=== PATIENT | male | born 1950 | race Caucasian/White ===

== ENCOUNTER 2019-02-26 09:07 | Emergency (ER) | payer MEDICARE, OTHER ==
--- NOTE | 2019-02-26 09:27 | ER Document Report ---
ED Medical Screen (RME) - General Chief Complaint: Eye Pain Stated Complaint: FACIAL SWELLING, PAIN Time Seen by Provider: 02/26/19 09:25 Primary Care Provider: DAYAN REILLY MD [Primary Care Provider] - Follow up as needed Mode of Arrival: Ambulatory Information source: Patient, Relative Notes: Patient presents today with complaints of shingles to his face. Daughter reports it has now affected both eyes. He was evaluated and treated at urgent care on Tuesday. Worsening symptoms today. I have greeted and performed a rapid initial assessment of this patient. A comprehensive ED assessment and evaluation of the patient, analysis of test results and completion of the medical decision making process will be conducted by additional ED providers. Dictation of this chart was performed using voice recognition software; therefore, there may be some unintended grammatical errors. TRAVEL OUTSIDE OF THE [place] IN LAST 30 DAYS: No - Related Data Allergies/Adverse Reactions: No Known Allergies Allergy (Verified 02/26/19 09:17) Doctor's Discharge - Discharge Referrals: DAYAN REILLY MD [Primary Care Provider] - Follow up as needed
--- NOTE | 2019-02-26 09:59 | ER Document Report ---
ED General - General Chief Complaint: Eye Pain Stated Complaint: FACIAL SWELLING, PAIN Time Seen by Provider: 02/26/19 09:25 Primary Care Provider: REMINGTON BALTAZAR DO [ACTIVE STAFF] - 02/27/19 DAYAN REILLY MD [Primary Care Provider] - Follow up as needed Mode of Arrival: Ambulatory Notes: Patient is a 68 year old male that presents to the emergency department for chief complaint of rash on face. Patient reports that noticed a rash on his face afternoon that was mainly on the left scalp and went down around his left eye and nose. The area is red and painful, and did blister and is now crusting over. He was seen at urgent care on Tuesday and diagnosed with shingles and started on acyclovir, keflex, and steroid eye drops. He is still having some pain and now redness below his right eye. He denies having any changes in his vision, reports having some tearing in the left eye. He denies significant headache, denies fevers, chills, night sweats, chest pain, shortness of breath, and denies noting any other rashes. Secondarily his family reports that his blood pressure has been running high over the past several months, and he has not seen a doctor for this yet. Past Medical History: denies chronic medical conditions. Past Surgical History: denies surgical history. Social History: admits to occasional ETOH use, denies tobacco, or drug use. Family History: Reviewed and noncontributory for presenting illness Allergies: Reviewed, see documented allergy list. REVIEW OF SYSTEMS: Other than noted above, the 12 point review of systems was reviewed with the pat ient and were negative, all pertinent findings are included in the HPI. PHYSICAL EXAMINATION: Vital signs reviewed, nursing noted reviewed. GENERAL: Well-appearing, well-nourished and in no acute distress. HEAD: Atraumatic, normocephalic. EYES: EOMI, PERRLA, mild left sided conjunctival injection. Under slit lamp with fluorescein dye enhancement I could not appreciate any dendritic lesions, FB, or corneal abrasion. There is mild periorbital edema noted bilaterally with erythema inferiorly, without tenderness to palpation. No pain with EOM. ENT: nares patent, oropharynx clear without exudates. Moist mucous membranes. NECK: Normal range of motion, supple without lymphadenopathy LUNGS: Breath sounds clear to auscultation bilaterally and equal. No wheezes rales or rhonchi. HEART: Regular rate and rhythm without murmurs ABDOMEN: Soft, nontender, normoactive bowel sounds. No rebound, guarding, or rigidity. No masses appreciated. EXTREMITIES: Nontender, good range of motion, no pitting or edema. NEUROLOGICAL: No focal neurological deficits. Moves all extremities spontaneously Motor and sensory grossly intact on exam. PSYCH: Normal mood, normal affect. SKIN: Warm, Dry, normal turgor, there is a crusting erythematous rash noted over the left scalp and face consistent with HZV infection. TRAVEL OUTSIDE OF THE [place] IN LAST 30 DAYS: No - Related Data Allergies/Adverse Reactions: No Known Allergies Allergy (Verified 02/26/19 09:17) Past Medical History - General Information source: Patient, Relative - Social History Smoking Status: Never Smoker Family History: Reviewed & Not Pertinent Physical Exam - Vital signs Vitals: Temp Pulse Resp BP Pulse Ox 97.9 F 94 20 183/90 H 98 02/26/19 09:25 02/26/19 09:25 02/26/19 09:25 02/26/19 09:25 02/26/19 09:25 Course - Re-evaluation Re-evalutation: Patient seen and examined vital signs reviewed. Patient exam is most consistent with herpes zoster infection. I did not see evidence of dendritic lesions on slit lamp exam. Advised switching to valacyclovir and continueing keflex at this time and to schedule ophthalmology appointment tomorrow. I did not feel that he needed IV acyclovir at this time given lack of dendritic lesions, and lack of visual changes per history. No further imaging or lab data indicated at this time. Patients daughter called for appointment while in the ED and secured follow-up. I advised to monitor for changes in vision and to return to the ED if worsening. Patient will also be started on amlodipine 5mg daily for his blood pressure, and advised follow-up with a PCP to repeat blood pressure as an outpatient and evaluate need for additional medications if indicated. Patient verbalized agreement with this plan of care. - Vital Signs Vital signs: Temp Pulse Resp BP Pulse Ox 98.6 F 88 16 172/86 H 100 02/26/19 11:44 02/26/19 11:44 02/26/19 11:44 02/26/19 11:44 02/26/19 11:44 Discharge - Discharge Clinical Impression: Ophthalmic herpes zoster, Elevated blood pressure reading Condition: Stable Disposition: HOME, SELF-CARE Instructions: Ophthalmic Zoster (Shingles of the Eye) ([facility]) Additional Instructions: Please follow-up with the lubrication supervisor tomorrow with your scheduled appointment, continue the previously prescribed medications, with the exception of the acyclovir, discontinue taking that and start taking the valacyclovir as prescribed starting today. Please start taking the blood pressure medication as prescribed, once daily, and please follow-up with a primary care physician. Prescriptions: RX: Amlodipine Besylate [Norvasc 5 mg Tablet] 5 mg PO DAILY #30 tablet Hydrocodone/Acetaminophen [Hillister 5-325 mg Tablet] 1 tab PO Q6H PRN #15 tablet PRN Reason: facial pain Valacyclovir HCl [Valacyclovir] 1,000 mg PO TID #15 tablet Referrals: DAYAN REILLY MD [Primary Care Provider] - Follow up as needed REMINGTON BALTAZAR DO [ACTIVE STAFF] - 02/27/19
[2019-02-26 11:44] VITALS: BP 172/86
== END 2019-02-26 11:44 | disposition home or self-care (01) ==
LOC: ER 09:07
DX: B02.30 Zoster ocular disease, unspecified (principal); R03.0 Elevated blood-pressure reading, without diagnosis of hypertension
CPT/HCPCS: 99283

== ENCOUNTER → 2019-04-11 | Outpatient (CLI) | payer MEDICARE, OTHER ==
--- NOTE | 2019-04-11 09:18 | RADIOLOGY REPORT (SQ) ---
EXAM DESCRIPTION: ELBOW RIGHT >2 VIEWS COMPLETED DATE/TIME: 04/11/2019 9:09 am REASON FOR STUDY: RT ELBOW PAIN M25.521 PAIN IN RIGHT ELBOW COMPARISON: None. NUMBER OF VIEWS: Four views. TECHNIQUE: AP, lateral, and both oblique radiographic images acquired of the right elbow. LIMITATIONS: None. FINDINGS: MINERALIZATION: Normal. BONES: No acute fracture or dislocation. No worrisome bone lesions. JOINT: No effusion. SOFT TISSUES: There is soft tissue swelling over the olecranon. This may represent bursitis. OTHER: No other significant finding. IMPRESSION: Soft tissue swelling over the olecranon. No underlying fracture. TECHNICAL DOCUMENTATION: JOB ID: [id number] [employer]- All Rights Reserved Reading location - IP/workstation name: [email or web address]
== END ==
LOC: OD 08:51
PROVIDERS: ATTEND Nurse Practitioner Family
DX: M25.521 Pain in right elbow (principal); M79.89 Other specified soft tissue disorders

== ENCOUNTER 2019-09-20 10:41 | Day surgery (SDC) | payer MEDICARE, OTHER ==
[~2019-09-20 10:41] MED LIST: KETOROLAC TROMETHAMINE 0.45% 4 DROP/0.4 ML DROPERETTE OD PRN; LIDOCAINE 1%/PHENYLEPHRINE 1.5% 1 ML VIAL ONE
[2019-09-20] MEDS: TROPICAMIDE 1% OPH SOLN 15 ML OD PRN ×3 (11:54→12:14)
[2019-09-20] MEDS: CYCLOPENTOLATE 0.2%/PHENYLEPHRINE 1% OPH SOLN 2 ML OD PRN ×3 (11:54→12:14)
[2019-09-20] MEDS: BESIFLOXACIN HCL 0.6% OPH SUSP 5 ML BOTTLE OD PRN ×4 (11:54→12:52)
[2019-09-20] MEDS: TETRACAINE HCL 0.5% OPH SOLN 4 ML OD PRN ×3 (11:55→12:32)
[2019-09-20] MEDS ORDERED: MIDAZOLAM 2 MG/2 ML INJ ONE (12:36)
[2019-09-20] MEDS: CHONDR SU A NA/HYALUR INTRAOC KIT (SURGICARE) ONE ×2 (12:38→12:39)
[2019-09-20] MEDS: EPINEPHRINE INJ/PF 1 MG/1 ML AMPULE ONE ×2 (12:38→12:39)
[2019-09-20] MEDS: DORZOLAMIDE HCL 2%/TIMOLOL MALEAT 0.5% OPH SOLN 10 ML OD PRN ×2 (12:52)
--- NOTE | 2019-09-21 07:49 | Operative Report ---
Operative Report-[facility] Operative Report: DATE OF SURGERY: 09/20/2019 PREOPERATIVE DIAGNOSIS: Cataract, right eye POSTOPERATIVE DIAGNOSIS: Cataract, right eye OPERATION: Cataract extraction with insertion of an IOL of the right eye. Intraocular Lens Model: [20.5 sn60wf] Patient was having trouble seeing small print SURGEON: Jose Parr MD ANESTHESIA: Topical PROCEDURE: After obtaining appropriate consent, the patient's right eye was prepped and draped in a sterile fashion as well as the surgeon in the sterile manner and cataract surgery was started. First a paracentesis blade was used to make a side-port incision. Viscoelastic was used to inflate the anterior chamber. Next a 2.4 mm incision was made with a 2.4 mm blade, clear corneal temporarily. A continuous capsulorrhexis was made using a cystotome and Utrata forceps. Following this hydrodissection was carried out to make the prabhu fully loose and mobile and it was rotated. Following this, a divide and conquer technique was used to phacoemulsify the prabhu. The remaining cortex was removed with an irrigation/aspiration. Provisc was instilled into the capsular bag to inflate the bag. The intraocular lens was placed. The remaining viscoelastic material was removed with irrigation/aspiration. Following this, the incision was found to be watertight. Besivance and Cosopt was instilled into the eye and a protective shield was placed over the eye. The patient was reurned to the postoperative recovery in a stable condition.
== END 2019-09-20 13:35 | disposition home or self-care (01) ==
LOC: SC 10:41
PROVIDERS: ATTEND Internal Medicine
DX: H25.89 Other age-related cataract (principal); B00.52 Herpesviral keratitis; H40.052 Ocular hypertension, left eye; I10 Essential (primary) hypertension; M06.9 Rheumatoid arthritis, unspecified; Z87.891 Personal history of nicotine dependence; Z79.899 Other long term (current) drug therapy
CPT/HCPCS: 66984; 00142; V2632; J2250; J3490 ×2; A9270; J0171; J2370; 142

== ENCOUNTER 2019-10-23 08:52 | Day surgery (SDC) | payer MEDICARE, OTHER ==
[~2019-10-23 08:52] MED LIST changes: +CHONDR SU A NA/HYALUR INTRAOC KIT (SURGICARE) ONE; +CYCLOPENTOLATE 0.2%/PHENYLEPHRINE 1% OPH SOLN 2 ML OS PRN; +DORZOLAMIDE HCL 2%/TIMOLOL MALEAT 0.5% OPH SOLN 10 ML OS PRN; +EPINEPHRINE INJ/PF 1 MG/1 ML AMPULE ONE; -KETOROLAC TROMETHAMINE 0.45% 4 DROP/0.4 ML DROPERETTE OD PRN; +KETOROLAC TROMETHAMINE 0.45% 4 DROP/0.4 ML DROPERETTE OS PRN; +TROPICAMIDE 1% OPH SOLN 15 ML OS PRN; +TRYPAN BLUE 0.06 % OPH SOLN 0.5 ML DISP.SYRIN ONE
[2019-10-23] MEDS ORDERED: KETOROLAC TROMETHAMINE 0.45% 4 DROP/0.4 ML DROPERETTE OS PRN (10:30)
[2019-10-23] MEDS: CYCLOPENTOLATE 0.2%/PHENYLEPHRINE 1% OPH SOLN 2 ML OS PRN ×2 (10:30→10:40)
[2019-10-23] MEDS ORDERED: TETRACAINE HCL 0.5% OPH SOLN 4 ML OS PRN (10:30)
[2019-10-23] MEDS: TROPICAMIDE 1% OPH SOLN 15 ML OS PRN ×3 (10:30→10:55)
[2019-10-23] MEDS ORDERED: DORZOLAMIDE HCL 2%/TIMOLOL MALEAT 0.5% OPH SOLN 10 ML OS PRN (10:30)
[2019-10-23] MEDS: BESIFLOXACIN HCL 0.6% OPH SUSP 5 ML BOTTLE OS PRN ×2 (10:40→11:33)
[2019-10-23] MEDS ORDERED: MIDAZOLAM 2 MG/2 ML INJ ONE (10:47)
[2019-10-23] MEDS: TETRACAINE HCL 0.5% OPH SOLN 4 ML OS PRN ×2 (10:55→11:08)
[2019-10-23] MEDS ORDERED: BESIFLOXACIN HCL 0.6% OPH SUSP 5 ML BOTTLE OS PRN (11:12)
[2019-10-23] MEDS ORDERED: TRYPAN BLUE 0.06 % OPH SOLN 0.5 ML DISP.SYRIN ONE (11:18)
[2019-10-23] MEDS ORDERED: CHONDR SU A NA/HYALUR SOD 0.5 ML DISP.SYRIN ONE (12:42)
--- NOTE | 2019-10-23 14:00 | Operative Report ---
Operative Report-[facility] Operative Report: . DATE OF SURGERY: 10/23/2019 PREOPERATIVE DIAGNOSIS: Cataract, left eye, Pupil Miosis corneal scarring POSTOPERATIVE DIAGNOSIS: Cataract, left eye, Pupil miosis, corneal scarring OPERATION: Complex Cataract extraction with insertion of an IOL of the left eye and use of a maluygan ring due to pupil dilation of less than 4mm and use of trypan blue dye due to poor red reflex.. Intraocular Lens Model: [21.0 sn60wf] Patient underwent surgery for difficulty seeing small print and television SURGEON: Jose Parr MD ANESTHESIA: Topical PROCEDURE: After obtaining appropriate consent, the patient's left eye was prepped and draped in a sterile fashion as well as the surgeon in the sterile manner and cataract surgery was started. First a paracentesis blade was used to make a side-port incision. Viscoelastic was used to inflate the anterior chamber. Next a 2.4 mm incision was made with a 2.4 mm blade, clear corneal temporarily. Trypan blue dye was used to stain the anterior capsule due to poor red reflex from corneal scarring. A continuous capsulorrhexis was made using a cystotome and Utrata forceps. Following this hydrodissection was carried out to make the lens fully loose and mobile and it was rotated freely. Following this, a divide and conquer technique was used to phacoemulsify the lens.. The remaining cortex was removed with an irrigation/aspiration. Provisc was instilled into the capsular bag to inflate the bag. The intraocular lens was placed. The remaining viscoelastic material was removed with irrigation/aspiration. Following this, the incision was found to be watertight. Prior to making the capsulorhexis a maluygan ring was inserted due to poor pupillary dilation. This was removed at the end of the case. Besivance and Cosopt was instilled into the eye and a protective shield was placed over the eye. The patient was returned to the postoperative recovery in a stable condition.
== END 2019-10-23 12:20 | disposition home or self-care (01) ==
LOC: SC 08:52
PROVIDERS: ATTEND Internal Medicine
DX: H25.89 Other age-related cataract (principal); Z96.1 Presence of intraocular lens; B00.52 Herpesviral keratitis; H57.03 Miosis; H17.9 Unspecified corneal scar and opacity; I10 Essential (primary) hypertension; Z79.899 Other long term (current) drug therapy
CPT/HCPCS: 66982; V2632; J2250; J3490 ×4; A9270; J0171; 142

== ENCOUNTER → 2020-03-25 | Outpatient (CLI) | payer MEDICARE, OTHER ==
--- NOTE | 2020-03-25 16:36 | RADIOLOGY REPORT (SQ) ---
EXAM DESCRIPTION: VENOUS UNILATERAL LOWER IMAGES COMPLETED DATE/TIME: 03/25/2020 4:25 pm REASON FOR STUDY: LLE PAIN/SWELLING M79.662 PAIN IN LEFT LOWER LEG COMPARISON: None. TECHNIQUE: Dynamic and static stephens scale and color images acquired of the left leg venous system. Se lected spectral images acquired with additional compression and augmentation maneuvers. The contralat eral common femoral vein and saphenofemoral junction were also imaged. Images stored on PACS. LIMITATIONS: None. FINDINGS: COMMON FEMORAL: Normal phasicity, compression and augmentation. No visualized echogenic ma terial on stephens scale. No defects on color images. FEMORAL: Normal compression and augmentation. No visualized echogenic material on stephens scale. No defe cts on color images. POPLITEAL: Normal compression, augmentation. No visualized echogenic material on stephens scale. No defec ts on color images. CALF VESSELS: Normal compression, augmentation. No visualized echogenic material on stephens scale. No de fects on color images. GSV and SSV: Normal compression, augmentation. No visualized echogenic material on stephens scale. No def ects on color images. ANY DEEP VENOUS INSUFFICIENCY: No. ANY EVIDENCE OF POPLITEAL CYST: No. OTHER: There is a large predominately hypoechoic mass in the left inguinal region measuring 2.7 x 4.7 cm. Flow present on Doppler imaging. CONTRALATERAL COMMON FEMORAL VEIN AND SAPHENOFEMORAL JUNCTION: Normal phasicity, compression and augmentation. No visualized echogenic material on stephens scale. No de fects on color images. IMPRESSION: 1. NO EVIDENCE DVT OR SVT IN THE LEFT LEG. 2. LARGE HYPOECHOIC MASS IN THE LEFT INGUINAL REGION MOST LIKELY REPRESENTING A PATHOLOGIC LYMPH NODE VERSUS OTHER SOFT TISSUE MASS. TECHNICAL DOCUMENTATION: JOB ID: [id number] 2010 [employer]- All Rights Reserved Reading location - IP/workstation name: [email or web address]
== END ==
LOC: SP 15:30
PROVIDERS: ATTEND Nurse Practitioner Family
DX: M79.605 Pain in left leg (principal)
CPT/HCPCS: 93971

== ENCOUNTER 2020-04-04 06:47 | Day surgery (SDC) | payer MEDICARE, OTHER ==
[2020-04-04] MEDS ORDERED: PROPOFOL INJ 200 MG/20 ML VIAL IV ONE ×2 (07:35→08:44)
--- NOTE | 2020-04-04 08:52 | Operative Report ---
Operative Report DATE OF SURGERY: 04/04/20 Operative Report: The risk, benefits and alternatives of the procedure including the risk of bleeding, perforation requiring surgery have been explained to the patient in detail and informed consent has been obtained. The patient is taken back to the endoscopy suite and placed in a left, lateral decubital position. Timeout was called. Propofol medication is administered. Rectal examination is done which did not reveal any masses, tears or fissures. An Olympus videoscope was inserted into the patient's rectum. Scope was then carefully advanced all the way to the cecum. Cecum was identified by the usual anatomical landmarks of the ileocecal valve as well as the appendiceal office. Photodocumentation is obtained. Scope was then sequentially pulled back via the various segments of the colon including the ascending colon, hepatic flexure, transverse colon, sple gopi flexure, descending colon and finally into the rectosigmoid portions of the colon. Retroflexion maneuver is performed. PREOPERATIVE DIAGNOSIS: Colorectal cancer screening POSTOPERATIVE DIAGNOSIS: Sigmoid colon polyp removed via snare polypectomy and retrieved. Diverticulosis. Internal hemorrhoids OPERATION: Colonoscopy with snare polypectomy SURGEON: CON MATAMOROS ANESTHESIA: LMAC TISSUE REMOVED OR ALTERED: As noted above. COMPLICATIONS: None. ESTIMATED BLOOD LOSS: None. INTRAOPERATIVE FINDINGS: As noted above. PROCEDURE: Patient tolerated the procedure well. No immediate postprocedure complications are noted. Patient is discharged in good condition. Discharge date 04/04/2020. Discharge diet: Regular. Discharge activity: Regular. 2 to 3-week follow-up to discuss findings. Patient is instructed call the office or proceed to the emergency room should there be any further problems or questions. Wait on the pathology. Depending on the pathology of the polyp 3 to 5-year surveillance colonoscopy.
[2020-04-04 09:36] VITALS: BP 160/75
== END 2020-04-04 09:30 | disposition home or self-care (01) ==
LOC: END 06:47
PROVIDERS: ATTEND Internal Medicine Gastroenterology
DX: Z12.11 Encounter for screening for malignant neoplasm of colon (principal); Z12.12 Encounter for screening for malignant neoplasm of rectum; D12.5 Benign neoplasm of sigmoid colon; K57.30 Diverticulosis of large intestine without perforation or abscess without bleeding; K64.8 Other hemorrhoids; R59.0 Localized enlarged lymph nodes; M10.9 Gout, unspecified; I10 Essential (primary) hypertension; Z87.891 Personal history of nicotine dependence; Z03.818 Encounter for observation for suspected exposure to other biological agents ruled out; Z79.899 Other long term (current) drug therapy
CPT/HCPCS: 45385; 88305 ×2; 00811; U0003; J2704; C9803; 811; 87635

== ENCOUNTER 2020-06-24 19:24 | Inpatient (IN) | payer MEDICARE, OTHER ==
--- NOTE | 2020-06-24 19:44 | ER Document Report ---
ED Medical Screen (RME) - General Chief Complaint: Breathing Difficulty Stated Complaint: DIFFICULTY BREATHING,FEVER,WEAKNESS Time Seen by Provider: 06/24/20 19:36 Primary Care Provider: CHICO YA NP [Primary Care Provider] - Follow up as needed TRAVEL OUTSIDE OF THE [place] IN LAST 30 DAYS: No - HPI Notes: 06/24/20 19:41 - Related Data Allergies/Adverse Reactions: No Known Allergies Allergy (Verified 04/04/20 07:26) Past Medical History - Past Medical History Cardiac Medical History: Reports: Hx Hypertension Denies: Hx Coronary Artery Disease, Hx Heart Attack Pulmonary Medical History: Denies: Hx Asthma, Hx Bronchitis, Hx COPD, Hx Pneumonia Neurological Medical History: Denies: Hx Cerebrovascular Accident, Hx Seizures Renal/ Medical History: Denies: Hx Peritoneal Dialysis GI Medical History: Denies: Hx Hepatitis, Hx Hiatal Hernia, Hx Ulcer Musculoskeltal Medical History: Denies Hx Arthritis Infectious Medical History: Denies: Hx Hepatitis Past Surgical History: Denies: Hx Open Heart Surgery, Hx Pacemaker - Immunizations Hx Diphtheria, Pertussis, Tetanus Vaccination: - UNKNOWN Physical Exam - Vital signs Vitals: Temp Pulse Resp BP Pulse Ox 99.8 F 123 H 18 149/68 H 95 06/24/20 19:35 06/24/20 19:35 06/24/20 19:35 06/24/20 19:35 06/24/20 19:35 Course - Vital Signs Vital signs: Temp Pulse Resp BP Pulse Ox 99.8 F 123 H 18 149/68 H 95 06/24/20 19:35 06/24/20 19:35 06/24/20 19:35 06/24/20 19:35 06/24/20 19:35 Doctor's Discharge - Discharge Referrals: CHICO YA NP [Primary Care Provider] - Follow up as needed
--- NOTE | 2020-06-24 20:02 | RADIOLOGY REPORT (SQ) ---
EXAM DESCRIPTION: CHEST SINGLE VIEW IMAGES COMPLETED DATE/TIME: 06/24/2020 7:52 pm REASON FOR STUDY: sob COMPARISON: None. EXAM PARAMETERS: NUMBER OF VIEWS: One view. TECHNIQUE: Single frontal radiographic view of the chest acquired. RADIATION DOSE: NA LIMITATIONS: None. FINDINGS: LUNGS AND PLEURA: There appear to be chronic interstitial changes. There is increased opa cification in the right lung compared to the left. MEDIASTINUM AND HILAR STRUCTURES: No masses. Contour normal. HEART AND VASCULAR STRUCTURES: Heart normal in size. Normal vasculature. BONES: No acute findings. HARDWARE: None in the chest. OTHER: No other significant finding. IMPRESSION: Chronic lung changes. Likely superimposed pneumonia in the right lung. TECHNICAL DOCUMENTATION: JOB ID: [id number] 2010 [employer]- All Rights Reserved Reading location - IP/workstation name: [email or web address]
[2020-06-24] MEDS ORDERED: CEFTRIAXONE 1 GM/D5W RTU 1 GM/50 ML RTUPB IV ONE (20:58)
[2020-06-24] MEDS ORDERED: AZITHROMYCIN INJ 500 MG VIAL IV ONE (20:59)
[2020-06-24] MEDS ORDERED: NORMAL SALINE 1000 ML 1,000 ML IV ONE (20:59)
[2020-06-24 21:03] LABS: ABSOLUTE EOSINOPHILS # (AUTO) 0.1 10^3/uL (0.0-0.6); ABSOLUTE LYMPHOCYTES (AUTO) 0.4 10^3/uL (0.5-4.7); ABSOLUTE MONOCYTES (AUTO) 0.4 10^3/uL (0.1-1.4); ABSOLUTE NEUT (AUTO) 5.3 10^3/uL (1.7-8.2); BASOPHILS % (AUTO) 0.5 % (0-2); EOSINOPHILS % (AUTO) 2.1 % (0-6); HEMATOCRIT 34.7 % (37.9-51.0); HEMOGLOBIN 11.5 g/dL (13.5-17.0); LYMPHOCYTES % (AUTO) 5.7 % (13-45); MEAN CORPUSCULAR HEMOGLOBIN 25.8 pg (27.0-33.4); MEAN CORPUSCULAR HGB CONC 33.2 g/dL (32.0-36.0); MEAN CORPUSCULAR VOLUME 78 fl (80-97); MONOCYTES % (AUTO) 5.9 % (3-13); PLATELET COUNT 251 10^3/uL (150-450); RED BLOOD COUNT 4.47 10^6/uL (4.35-5.55); SEGMENTED NEUTROPHILS % (AUTO) 85.8 % (42-78); TOTAL CELLS COUNTED % (AUTO) 100 %; WHITE BLOOD COUNT 6.1 10^3/uL (4.0-10.5)
--- NOTE | 2020-06-24 21:03 | ER Document Report ---
ED General - General Chief Complaint: Breathing Difficulty Stated Complaint: DIFFICULTY BREATHING,FEVER,WEAKNESS Time Seen by Provider: 06/24/20 19:36 Notes: Patient is a 70-year-old male who comes emergency department for chief complaint of shortness of breath, cough, feeling feverish, and weakness which has been worsening for the past 4 days. Daughter works in the medical field and she states she took his vital signs at home and he was noted to have a fever of 102 F had a pulse oxygen saturation of 91% at home before she brought him in. Patient is a former smoker, is not diagnosed with COPD or asthma, is not on home oxygen. He is medicated for blood pressure, no other past medical history reported. TRAVEL OUTSIDE OF THE [place] IN LAST 30 DAYS: No - Related Data Allergies/Adverse Reactions: No Known Allergies Allergy (Verified 06/24/20 20:59) Past Medical History - General Information source: Patient - Social History Smoking Status: Former Smoker Drug Abuse: None Lives with: Family Family History: Reviewed & Not Pertinent - Past Medical History Cardiac Medical History: Reports: Hx Hypertension Denies: Hx Coronary Artery Disease, Hx Heart Attack Pulmonary Medical History: Denies: Hx Asthma, Hx Bronchitis, Hx COPD, Hx Pneumonia Neurological Medical History: Denies: Hx Cerebrovascular Accident, Hx Seizures Renal/ Medical History: Denies: Hx Peritoneal Dialysis GI Medical History: Denies: Hx Hepatitis, Hx Hiatal Hernia, Hx Ulcer Musculoskeletal Medical History: Denies Hx Arthritis Infectious Medical History: Denies: Hx Hepatitis Past Surgical History: Denies: Hx Open Heart Surgery, Hx Pacemaker - Immunizations Hx Diphtheria, Pertussis, Tetanus Vaccination: - UNKNOWN Review of Systems - Review of Systems Constitutional: See HPI EENT: No symptoms reported Cardiovascular: No symptoms reported Respiratory: See HPI Gastrointestinal: No symptoms reported Genitourinary: No symptoms reported Male Genitourinary: No symptoms reported Musculoskeletal: No symptoms reported Skin: No symptoms reported Hematologic/Lymphatic: No symptoms reported Neurological/Psychological: No symptoms reported Physical Exam - Vital signs Vitals: Temp Pulse Resp BP Pulse Ox 99.8 F 123 H 18 149/68 H 95 06/24/20 19:35 06/24/20 19:35 06/24/20 19:35 06/24/20 19:35 06/24/20 19:35 - Notes Notes: GENERAL: Patient is ill-appearing and moves and speaks weakly HEAD: Normocephalic, atraumatic. EYES: Pupils equal, round, and reactive to light. Extraocular movements intact. ENT: Oral mucosa moist, tongue midline. Oropharynx unremarkable. Airway patent. NECK: Full range of motion. Supple. Trachea midline. No lymphadenopathy. LUNGS: Decreased breath sounds on the right compared to the left, occasional painful congested cough, slightly increased work of breathing and tachypnea noted. HEART: Tachycardia, normal rhythm, no murmur ABDOMEN: Soft, non-tender. Non-distended. EXTREMITIES: Moves all 4 extremities spontaneously. No edema, normal radial and dorsalis pedis pulses bilaterally. No cyanosis. BACK: no cervical, thoracic, lumbar midline tenderness. No saddle anesthesia, normal distal neurovascular exam. Moves all extremities in full range of motion. NEUROLOGICAL: Alert and oriented x3. Normal speech. Cranial nerves II through XII grossly intact. Strength 5/5 in all extremities. PSYCH: Normal affect, normal mood. SKIN: Warm, dry, normal turgor. No rashes or lesions noted. Course - Re-evaluation Re-evalutation: On my evaluation patient is somewhat ill-appearing, tachycardic, has slightly labored breathing and tachypnea. He was placed on oxygen, giving IV fluids. He has a painful cough and is requesting coming for this. He was given [place]. Work-up pending. CBC unremarkable, chemistry nonspecific although alk phos is significantly elevated. Chest x-ray showing large abnormal area in the right lung which is possibly pneumonia. There is some concern this could be postobstructive pneumonia. Because of patient's tachypnea, tachycardia, elevated alk phos, and questionable chest x-ray discussed with patient and CTA will be performed. Giving antibiotics for coverage for hospital-acquired pneumonia. CTA shows multiple concerning findings including evidence for metastatic disease including abnormal lymph nodes, probable post obstructive pneumonia, lytic lesion in T7, lung nodules, pleural effusion. Patient with significant dyspnea and with hypoxia on ambulation. I discussed with Dr. Ridley, she recommends hospitalist admission, consultation with pulmonology and oncology can be after admission. Patient and daughter state appreciation and agreement. Discussed with Dr. Freeman, patient excepted to medical floor full admission. - Vital Signs Vital signs: Temp Pulse Resp BP Pulse Ox 99.0 F 123 H 23 H 155/80 H 97 06/25/20 01:34 06/24/20 19:35 06/25/20 03:05 06/25/20 03:05 06/25/20 02:01 - Laboratory Result Diagrams: 06/24/20 19:47 06/24/20 19:47 Laboratory results interpreted by me: 06/24/20 06/24/20 06/24/20 19:47 19:47 19:47 Hgb 11.5 L Hct 34.7 L MCV 78 L MCH 25.8 L RDW 16.0 H Lymph % (Auto) 5.7 L Absolute Lymphs (auto) 0.4 L Seg Neutrophils % 85.8 H Sodium 134.7 L Carbon Dioxide 21 L Glucose 122 H AST 76 H ALT 73 H Alkaline Phosphatase 287 H NT-Pro-B Natriuret Pep 327 H Total Protein 6.1 L Albumin 3.4 L Urine Protein Urine Urobilinogen Urine Ascorbic Acid 06/24/20 19:52 Hgb Hct MCV MCH RDW Lymph % (Auto) Absolute Lymphs (auto) Seg Neutrophils % Sodium Carbon Dioxide Glucose AST ALT Alkaline Phosphatase NT-Pro-B Natriuret Pep Total Protein Albumin Urine Protein 30 H Urine Urobilinogen 2.0 H Urine Ascorbic Acid 40 H - EKG Interpretation by Me Additional EKG results interpreted by me: EKG shows sinus tachycardia at a rate of 108, PACs, QTc 424, normal axis, no T wave inversions or ST segment changes in consecutive leads Discharge - Discharge Clinical Impression: Tachycardia, Pleural effusion, Hilar adenopathy Dyspnea Qualifiers: Dyspnea type: shortness of breath Qualified Code(s): R06.02 - Shortness of breath; R06.00 - Dyspnea, unspecified; R06.01 - Orthopnea Pneumonia Qualifiers: Pneumonia type: due to unspecified organism Laterality: right Lung location: unspecified part of lung Qualified Code(s): J18.9 - Pneumonia, unspecified organism Condition: Stable Disposition: ADMITTED INPATIENT Admitting Provider: Dr. Freeman Unit Admitted: Medical Floor
[2020-06-24 21:07] LABS: ALBUMIN 3.4 g/dL (3.5-5.0); ALKALINE PHOSPHATASE 287 U/L (38-126); ANION GAP 11 (5-19); ASPARTATE AMINO TRANSFERASE 76 U/L (17-59); BILIRUBIN,TOTAL 0.6 mg/dL (0.2-1.3); BLOOD UREA NITROGEN 16 mg/dL (7-20); CALCIUM 9.1 mg/dL (8.4-10.2); CARBON DIOXIDE 21 mmol/L (22-30); CHLORIDE 103 mmol/L (98-107); GLUCOSE 122 mg/dL (75-110); TOTAL PROTEIN 6.1 g/dL (6.3-8.2)
[2020-06-24] MEDS ORDERED: HYDROCODONE/ACETAMINOPHEN 5-325 MG TABLET PO ONE ×2 (21:12→21:13)
[2020-06-24 21:30] LABS: NT PRO BNP 327 pg/mL (<125)
[2020-06-24 21:33] LABS: A TYPE INFLUENZA AG NEGATIVE (NEGATIVE); B INFLUENZA AG NEGATIVE (NEGATIVE)
[2020-06-24 21:34] LABS: TROPONIN I < 0.012 ng/mL
--- NOTE | 2020-06-24 21:34 | ER Document Report ---
ED Medical Screen (RME) - General Chief Complaint: Shortness Of Breath Stated Complaint: DIFFICULTY BREATHING,FEVER,WEAKNESS Time Seen by Provider: 06/24/20 19:36 Primary Care Provider: CHICO YA NP [Primary Care Provider] - Follow up as needed TRAVEL OUTSIDE OF THE [place] IN LAST 30 DAYS: No - HPI Notes: 06/24/20 21:32 70-year-old male with a history of hypertension presents to the emergency room by private vehicle for complaints of shortness of breath, coughing, difficulty breathing for the last 3 days. took his temperature at home and it was 102.1 Fahrenheit. Patient typically is around 99 to 98% on room air, he was around 93 to 91% on room air today, feeling like it was difficult to breathe. Denies any chest pain, nausea, vomiting, diarrhea or abdominal pain. Former smoker. No history of asthma. I have greeted and performed a rapid initial assessment of this patient. A comprehensive ED assessment and evaluation of the patient, analysis of test r esults and completion of the medical decision making process will be conducted by additional ED providers. PHYSICAL EXAMINATION: CV: s1, s2 regular LUNGS: Diminished breath sounds in upper lobes - Related Data Allergies/Adverse Reactions: No Known Allergies Allergy (Verified 06/24/20 20:59) Past Medical History - Past Medical History Cardiac Medical History: Reports: Hx Hypertension Denies: Hx Coronary Artery Disease, Hx Heart Attack Pulmonary Medical History: Denies: Hx Asthma, Hx Bronchitis, Hx COPD, Hx Pneumonia Neurological Medical History: Denies: Hx Cerebrovascular Accident, Hx Seizures Renal/ Medical History: Denies: Hx Peritoneal Dialysis GI Medical History: Denies: Hx Hepatitis, Hx Hiatal Hernia, Hx Ulcer Musculoskeltal Medical History: Denies Hx Arthritis Infectious Medical History: Denies: Hx Hepatitis Past Surgical History: Denies: Hx Open Heart Surgery, Hx Pacemaker - Immunizations Hx Diphtheria, Pertussis, Tetanus Vaccination: - UNKNOWN Physical Exam - Vital signs Vitals: Temp Pulse Resp BP Pulse Ox 99.8 F 123 H 18 149/68 H 95 06/24/20 19:35 06/24/20 19:35 06/24/20 19:35 06/24/20 19:35 06/24/20 19:35 Course - Vital Signs Vital signs: Temp Pulse Resp BP Pulse Ox 99.8 F 123 H 25 H 123/56 L 97 06/24/20 19:35 06/24/20 19:35 06/24/20 21:01 06/24/20 21:01 06/24/20 21:01 - Laboratory Result Diagrams: 06/24/20 19:47 06/24/20 19:47 Laboratory results interpreted by me: 06/24/20 06/24/20 19:47 19:47 Hgb 11.5 L Hct 34.7 L MCV 78 L MCH 25.8 L RDW 16.0 H Lymph % (Auto) 5.7 L Absolute Lymphs (auto) 0.4 L Seg Neutrophils % 85.8 H Sodium 134.7 L Carbon Dioxide 21 L Glucose 122 H AST 76 H ALT 73 H Alkaline Phosphatase 287 H Total Protein 6.1 L Albumin 3.4 L Doctor's Discharge - Discharge Referrals: CHICO YA NP [Primary Care Provider] - Follow up as needed
[2020-06-24 21:35] LABS: APPEARANCE,URINE SLIGHTLY-CLOUDY; BILIRUBIN,URINE NEGATIVE (NEGATIVE); COLOR,URINE YELLOW; GLUCOSE, URINE NEGATIVE (NEGATIVE); KETONES,URINE NEGATIVE (NEGATIVE); LEUKOCYTE ESTERASE,URINE NEGATIVE (NEGATIVE); NITRITE,URINE NEGATIVE (NEGATIVE); PROTEIN,URINE 30 mg/dL (NEGATIVE); URINE SPECIFIC GRAVITY 1.025
--- NOTE | 2020-06-24 22:56 | RADIOLOGY REPORT (SQ) ---
EXAM DESCRIPTION: CT CHEST ANGIOGRAPHY WITHOUT THEN WITH IV CONTRAST COMPLETED DATE/TME: 06/24/2020 22:32 CLINICAL HISTORY: dyspnea, possible pneumonia, abnormal CXR COMPARISON: None Available. TECHNIQUE: CTA of the chest obtained following the uncomplicated intravenous administration of 75 mL Omnipaque 350. 3-D/MIP reformatted images of the chest available for evaluation. FINDINGS: Chest: Pulmonary arteries: Contrast bolus is adequate.No filling defects identified in the pulmonary arteries to suggest pulmonary embolus. Thyroid:No abnormalities of the visualized thyroid. Great Vessels:Great vessels have normal anatomic configuration. Thoracic Aorta: Atherosclerotic calcification thoracic aorta. Heart: Coronary artery atherosclerosis. No cardiomegaly or significant pericardial effusion. Lymph Nodes: Extensive mediastinal and bilateral hilar multilevel lymphadenopathy. A development representative enlarged subcarinal lymph node is seen on image #58, series 3 measuring 2.4 cm in short axis dimension. There is a conglomerate of right hilar lymph nodes encroaching upon the pulmonary arterial branches measuring approximately 4.4 x 3.3 cm in greatest axial dimensions. Enlarged left axillary lymph node. Esophagus:No abnormalities of the esophagus identified. Other:No additional findings. Lungs: Dependent airspace opacities in the right lung with interlobular septal thickening. Numerous solid pulmonary nodules throughout the lungs bilaterally, the largest in the left lower lobe seen on image #91, series #4 measuring 3.1 x 1.5 cm. Pleura: Moderate right pleural effusion. No pneumothorax. Trace left pleural effusion. Trachea/Airways: No acute abnormalities of the trachea. Compression of the right mainstem bronchus and proximal lobar bronchi related to right hilar lymphadenopathy. Bones: Lucent lesion involving the T7 vertebrae. Multilevel endplate spondylosis. Upper Abdomen:Limited images of the upper abdomen demonstrate no definite abnormalities of visualized portions of the liver, gallbladder, pancreas, spleen, adrenal glands, or kidneys. Enlarged periaortic lymph nodes identified. IMPRESSION: 1. No pulmonary embolus. 2. Numerous solid pulmonary nodules, the largest in the left lower lobe measuring 3.1 cm. There is also extensive multilevel mediastinal and hilar lymphadenopathy and questionable lytic lesion of the T7 vertebral body. These findings are compatible with metastatic disease. Unknown primary. 3. Moderate right pleural effusion with right basilar compressive atelectasis. 4. Patchy airspace opacities in the right lung may represent a new bronchial spread of neoplasm or infectious pneumonic process related to bronchial compression by right hilar lymphadenopathy. 5. Coronary artery atherosclerosis. This exam was performed according to our departmental dose-optimization program, which includes automated exposure control, adjustment of the mA and/or kV according to patient size and/or use of iterative reconstruction technique.
[2020-06-24] MEDS ORDERED: MORPHINE SULFATE 10 MG/ML INJ IV ONE (23:17)
[2020-06-24] MEDS ORDERED: ONDANSETRON HCL INJ/PF 4 MG/2 ML SDV IV ONE (23:17)
[2020-06-25] MEDS ORDERED: GUAIFENESIN 600 MG TABLET.SA PO PRN (00:36)
--- NOTE | 2020-06-25 00:56 | PDOC H&P ---
History of Present Illness Admission Date/PCP: CHICO YA NP Patient complains of: Cough, shortness of breath History of Present Illness: HENRY OSUNA is a 70 year old male with a history of hypertension comes with 4 days duration of nonproductive cough and shortness of breath with exertion. Patient also reports that he had a fever of 102 at home this morning. He generally feels very weak, has decreased appetite. He states that the shortness of breath has been progressively getting worse and today he even feels short of breath at rest and he has to prop himself up on his bed to sleep. He states that he had leg swelling few weeks back for which Doppler ultrasound was done and there was no DVT but ultrasound done at that time showed an incidental lymphadenopathy in his left groin area and biopsy was done he was told that it was negative for malignancy. Prior to 4 days ago patient states that he was fully functional and denies any weight loss, night sweating, chronic cough, hemoptysis, nausea, vomiting, abdominal pain, constipation, diarrhea or any change in his urinary habits. He states that he had a colonoscopy 2 months back and was told that it was negative for cancer. He is a former smoker but this been many years since he quit smoking. Patient denies any recent sick contact history. Past Medical History Cardiac Medical History: Reports: Hypertension Denies: Coronary Artery Disease, Myocardial Infarction Pulmonary Medical History: Denies: Asthma, Bronchitis, Chronic Obstructive Pulmonary Disease (COPD), Pneumonia Neurological Medical History: Denies: Seizures GI Medical History: Denies: Hepatitis, Hiatal Hernia Musculoskeltal Medical History: Denies: Arthritis Hematology: Denies: Anemia, Sickle Cell Disease Past Surgical History Past Surgical History: Denies: Pacemaker Social History Information Source: Patient Lives with: Family Smoking Status: Former Smoker Frequency of Alcohol Use: None Hx Recreational Drug Use: No Drugs: None - Advance Directive Resuscitation Status: Full Code Family History Family History: Reviewed & Not Pertinent Parental Family History Reviewed: Yes Children Family History Reviewed: Yes Sibling(s) Family History Reviewed.: Yes Medication/Allergy Home Medications: Amlodipine Besylate [Norvasc 5 mg Tablet] 10 mg PO DAILY 09/10/19 Indomethacin [Indocin 25 Mg Capsule] 25 mg PO BID 09/10/19 Lisinopril [Prinivil 5 mg Tablet] 5 mg PO DAILY 09/10/19 Valacyclovir HCl [Valacyclovir] 500 mg PO DAILY 09/10/19 Allergies/Adverse Reactions: No Known Allergies Allergy (Verified 06/24/20 20:59) Review of Systems Constitutional: PRESENT: as per HPI Eyes: ABSENT: visual disturbances Ears: ABSENT: hearing changes Nose, Mouth, and Throat: PRESENT: as per HPI Cardiovascular: PRESENT: as per HPI Respiratory: PRESENT: as per HPI Gastrointestinal: ABSENT: abdominal pain, constipation, diarrhea, hematemesis, hematochezia, nausea, vomiting Musculoskeletal: ABSENT: joint swelling Integumentary: ABSENT: rash, wounds Neurological: ABSENT: abnormal gait, abnormal speech, confusion, dizziness, focal weakness, syncope Psychiatric: ABSENT: anxiety, depression, homidical ideation, suicidal ideation Endocrine: ABSENT: cold intolerance, heat intolerance, polydipsia, polyuria Hematologic/Lymphatic: ABSENT: easy bleeding, easy bruising Physical Exam Vital Signs: Temp Pulse Resp BP Pulse Ox 99.8 F 123 H 18 138/73 H 95 06/24/20 19:35 06/24/20 19:35 06/25/20 00:02 06/25/20 00:02 06/25/20 00:02 Intake & Output 06/23/20 06/24/20 06/25/20 06:59 06:59 06:59 Intake Total 1050 Balance 1050 Weight 78.925 kg Additional comments: GENERAL APPEARANCE: Alert and oriented x3, tachypneic, on intranasal oxygen HEENT: Normocephalic and atraumatic. No scleral icterus. Dry oral mucosa NECK: Supple. No carotid bruit. No JVD CHEST: Symmetric. Nontender to palpation. LUNGS: Good air entry bilaterally. No wheezing or crackles appreciated HEART: Regular rate and rhythm with normal S1 and S2. No murmurs, gallops, or rubs. ABDOMEN: Distended, soft, active bowel sounds, no direct or rebound tenderness. No organomegaly detected. No CVA tenderness EXTREMITIES: No cyanosis, clubbing, or edema. MUSCULOSKELETAL: No deformity, atrophy or swelling noted PSYCHIATRIC: Recent and remote memory is intact. Appropriate mood and affect. SKIN: Warm, dry, and well perfused. No lesions or rashes are noted. NEUROLOGIC: No focal sensory or motor deficits are noted. Results Laboratory Results: 06/24/20 19:47 06/24/20 19:47 06/24/20 06/24/20 06/24/20 19:47 19:47 19:52 WBC 6.1 RBC 4.47 Hgb 11.5 L Hct 34.7 L MCV 78 L MCH 25.8 L MCHC 33.2 RDW 16.0 H Plt Count 251 Seg Neutrophils % 85.8 H Sodium 134.7 L Potassium 4.0 Chloride 103 Carbon Dioxide 21 L Anion Gap 11 BUN 16 Creatinine 0.97 Est GFR ( Amer) > 60 Glucose 122 H Lactic Acid Calcium 9.1 Total Bilirubin 0.6 AST 76 H Alkaline Phosphatase 287 H Total Protein 6.1 L Albumin 3.4 L Urine Color YELLOW Urine Appearance SLIGHTLY-CLOUDY Urine pH 5.0 Ur Specific [place] 1.025 Urine Protein 30 H Urine Glucose (UA) NEGATIVE Urine Ketones NEGATIVE Urine Blood NEGATIVE Urine Nitrite NEGATIVE Ur Leukocyte Esterase NEGATIVE Urine WBC (Auto) 2 Urine RBC (Auto) 1 06/24/20 21:20 WBC RBC Hgb Hct MCV MCH MCHC RDW Plt Count Seg Neutrophils % Sodium Potassium Chloride Carbon Dioxide Anion Gap BUN Creatinine Est GFR ( Amer) Glucose Lactic Acid 1.2 Calcium Total Bilirubin AST Alkaline Phosphatase Total Protein Albumin Urine Color Urine Appearance Urine pH Ur Specific [place] Urine Protein Urine Glucose (UA) Urine Ketones Urine Blood Urine Nitrite Ur Leukocyte Esterase Urine WBC (Auto) Urine RBC (Auto) 06/24/20 19:47 Troponin I < 0.012 NT-Pro-B Natriuret Pep 327 H Impressions: Chest X-Ray 06/24/20 19:36 IMPRESSION: Chronic lung changes. Likely superimposed pneumonia in the right lung. Chest/Abdomen CTA 06/24/20 21:39 IMPRESSION: 1. No pulmonary embolus. 2. Numerous solid pulmonary nodules, the largest in the left lower lobe measuring 3.1 cm. There is also extensive multilevel mediastinal and hilar lymphadenopathy and questionable lytic lesion of the T7 vertebral body. These findings are compatible with metastatic disease. Unknown primary. 3. Moderate right pleural effusion with right basilar compressive atelectasis. 4. Patchy airspace opacities in the right lung may represent a new bronchial spread of neoplasm or infectious pneumonic process related to bronchial compression by right hilar lymphadenopathy. 5. Coronary artery atherosclerosis. This exam was performed according to our departmental dose-optimization program, which includes automated exposure control, adjustment of the mA and/or kV according to patient size and/or use of iterative reconstruction technique. Assessment and Plan - Diagnosis (1) Postobstructive pneumonia Is this a current diagnosis for this admission?: Yes Plan: Patient presents with 4 days duration of shortness of breath CT chest shows multiple solid pulmonary nodules and extensive lymphadenopathy with right pleural effusion and patchy opacity in the right lung concerning for pneumonia Has no leukocytosis, curb 65 was 1 but PSI was 124 warranting inpatient management Started on ceftriaxone and azithromycin Follow-up with blood culture (2) Suspected COVID-19 virus infection Is this a current diagnosis for this admission?: Yes Plan: Patient has symptoms spacious for COVID-19 Placed him on special airborne isolation Continue supportive care with O2 supplement to keep saturation above 94% Tylenol as needed for fever Follow-up with test result (3) Multiple lung nodules Is this a current diagnosis for this admission?: Yes Plan: Patient denies chronic cough or constitutional symptoms beyond [address] chest was significant for numerous solid pulmonary nodules with the largest being 3.1 cm in the left lower lobe with extensive multilevel mediastinal lymphadenopathy and lytic lesion on T7 vertebra Patient reports that he had biopsy of lymph node at left inguinal area which was negative Recent colonoscopy was negative for malignancy He is a former smoker Will touch base with oncology while he is inpatient (4) Hyponatremia Is this a current diagnosis for this admission?: Yes Plan: Serum sodium 134 on presentation Likely due to volume depletion Continue IV hydration and monitor electrolytes (5) Volume depletion Is this a current diagnosis for this admission?: Yes Plan: Likely due to poor oral intake Continue IV fluid Encourage oral hydration Closely monitor vital sign (6) Hypertension Is this a current diagnosis for this admission?: Yes Plan: We will hold blood pressure medications for now due to volume depletion - Time Time Spent with patient: 35 or more minutes Total Critical Time (Minutes): 45 Medications reviewed and adjusted accordingly: Yes Anticipated Discharge Disposition: Home, Self Care Anticipated Discharge Timeframe: within 48 hours - Inpatient Certification Based on my medical assessment, after consideration of the patient's comorbidities, presenting symptoms, or acuity I expect that the services needed warrant INPATIENT care.: Yes I certify that my determination is in accordance with my understanding of Medicare's requirements for reasonable and necessary INPATIENT services [42 CFR 412.3e].: Yes Medical Necessity: Need Close Monitoring Due to Risk of Patient Decompensation, Need For IV Fluids, Need for IV Antibiotics Post Hospital Care: D/C or Transfer Summary
[2020-06-25] MEDS: NORMAL SALINE 1000 ML 1,000 ML IV PRN ×2 (01:27→21:21)
--- NOTE | 2020-06-25 08:51 | PDOC CONSULTATION ---
Consultation Consult Date: 06/25/20 Attending physician:: GENOVEVA HOFFMANN Provider Consulted: AMIE FERGUSON Consult reason:: Patient with right hilar adenopathy, mediastinal adenopathy and concern of lytic lesion in T7 History of Present Illness Admission Date/PCP: 06/25/20 00:51 CHICO YA NP Patient complains of: Increasing shortness of breath, weakness but no weight loss History of Present Illness: HENRY OSUNA is a 70 year old male with recent history of increasing shortness of breath, weakness, he was quite short of breath and really was not moving around much at home for the preceding 1 to 2 weeks, his daughter convinced him to come in to the ED for further evaluation, chest x-ray indicated opacity consistent with pneumonia but alk phos was elevated so this prompted ER to do CTA of the chest, this indicates numerous bilateral lung nodules, right hilar and mediastinal adenopathy, right pleural effusion, possible T7 lesion. He denies hemoptysis or weight loss. Of note, I did see him in office about 8 weeks ago. At that time he was assymptomatic, he had L inguinal LAD that had excisional bx, this indicated sinus histiocytosis so we were just going to follow this. Also, I did speak with his daughter Yue who works at the [employer] [facility] [facility] and updated her about plans. Past Medical History Cardiac Medical History: Reports: Hypertension Denies: Coronary Artery Disease, Myocardial Infarction Pulmonary Medical History: Denies: Asthma, Bronchitis, Chronic Obstructive Pulmonary Disease (COPD), Pneumonia Neurological Medical History: Denies: Seizures GI Medical History: Denies: Hepatitis, Hiatal Hernia Musculoskeltal Medical History: Denies: Arthritis Hematology: Denies: Anemia, Sickle Cell Disease Past Surgical History Past Surgical History: Denies: Pacemaker Social History Lives with: Family Smoking Status: Former Smoker Cigarettes Packs Per Day: 1 Number of Years Smokin Frequency of Alcohol Use: None Hx Recreational Drug Use: No Drugs: None - Advance Directive Resuscitation Status: Full Code Family History Family History: Reviewed & Not Pertinent Parental Family History Reviewed: Yes Children Family History Reviewed: Yes Sibling(s) Family History Reviewed.: Yes Medication/Allergy Home Medications: Amlodipine Besylate [Norvasc 5 mg Tablet] 10 mg PO DAILY 09/10/19 Indomethacin [Indocin 25 Mg Capsule] 25 mg PO BID 09/10/19 Lisinopril [Prinivil 5 mg Tablet] 5 mg PO DAILY 09/10/19 Valacyclovir HCl [Valacyclovir] 500 mg PO DAILY 09/10/19 Allergies/Adverse Reactions: No Known Allergies Allergy (Verified 06/24/20 20:59) Review of Systems Constitutional: ABSENT: chills, fever(s), headache(s), weight gain, weight loss Eyes: ABSENT: visual disturbances Ears: ABSENT: hearing changes Cardiovascular: ABSENT: chest pain, dyspnea on exertion, edema, orthropnea, palpitations Respiratory: ABSENT: cough, hemoptysis Gastrointestinal: ABSENT: abdominal pain, constipation, diarrhea, hematemesis, hematochezia, nausea, vomiting Genitourinary: ABSENT: dysuria, hematuria Musculoskeletal: ABSENT: joint swelling Integumentary: ABSENT: rash, wounds Neurological: ABSENT: abnormal gait, abnormal speech, confusion, dizziness, focal weakness, syncope Psychiatric: ABSENT: anxiety, depression, homidical ideation, suicidal ideation Endocrine: ABSENT: cold intolerance, heat intolerance, polydipsia, polyuria Hematologic/Lymphatic: ABSENT: easy bleeding, easy bruising Physical Exam Vital Signs: Temp Pulse Resp BP Pulse Ox 99.0 F 123 H 23 H 155/80 H 97 06/25/20 01:34 06/24/20 19:35 06/25/20 03:05 06/25/20 03:05 06/25/20 02:01 Intake & Output 06/24/20 06/25/20 06/26/20 06:59 06:59 06:59 Intake Total 1050 Balance 1050 Weight 78.925 kg General appearance: PRESENT: no acute distress, well-developed, well-nourished Head exam: PRESENT: atraumatic, normocephalic Eye exam: PRESENT: conjunctiva pink, EOMI, PERRLA. ABSENT: scleral icterus Ear exam: PRESENT: normal external ear exam Mouth exam: PRESENT: moist, tongue midline Neck exam: ABSENT: carotid bruit, JVD, lymphadenopathy, thyromegaly Respiratory exam: PRESENT: clear to auscultation kayce. ABSENT: rales, rhonchi, wheezes Cardiovascular exam: PRESENT: RRR. ABSENT: diastolic murmur, rubs, systolic murmur Pulses: PRESENT: normal dorsalis pedis pul Vascular exam: PRESENT: normal capillary refill GI/Abdominal exam: PRESENT: normal bowel sounds, soft. ABSENT: distended, guarding, mass, organolmegaly, rebound, tenderness Rectal exam: PRESENT: deferred Extremities exam: PRESENT: full ROM. ABSENT: calf tenderness, clubbing, pedal edema Neurological exam: PRESENT: alert, awake, oriented to person, oriented to place, oriented to time, oriented to situation, CN II-XII grossly intact. ABSENT: motor sensory deficit Psychiatric exam: PRESENT: appropriate affect, normal mood. ABSENT: homicidal ideation, suicidal ideation Skin exam: PRESENT: dry, intact, warm. ABSENT: cyanosis, rash Results Laboratory Results: 06/24/20 19:47 06/24/20 19:47 06/24/20 06/24/20 06/24/20 19:47 19:47 19:52 WBC 6.1 RBC 4.47 Hgb 11.5 L Hct 34.7 L MCV 78 L MCH 25.8 L MCHC 33.2 RDW 16.0 H Plt Count 251 Seg Neutrophils % 85.8 H Sodium 134.7 L Potassium 4.0 Chloride 103 Carbon Dioxide 21 L Anion Gap 11 BUN 16 Creatinine 0.97 Est GFR ( Amer) > 60 Glucose 122 H Lactic Acid Calcium 9.1 Total Bilirubin 0.6 AST 76 H Alkaline Phosphatase 287 H Total Protein 6.1 L Albumin 3.4 L Urine Color YELLOW Urine Appearance SLIGHTLY-CLOUDY Urine pH 5.0 Ur Specific [place] 1.025 Urine Protein 30 H Urine Glucose (UA) NEGATIVE Urine Ketones NEGATIVE Urine Blood NEGATIVE Urine Nitrite NEGATIVE Ur Leukocyte Esterase NEGATIVE Urine WBC (Auto) 2 Urine RBC (Auto) 1 06/24/20 21:20 WBC RBC Hgb Hct MCV MCH MCHC RDW Plt Count Seg Neutrophils % Sodium Potassium Chloride Carbon Dioxide Anion Gap BUN Creatinine Est GFR ( Amer) Glucose Lactic Acid 1.2 Calcium Total Bilirubin AST Alkaline Phosphatase Total Protein Albumin Urine Color Urine Appearance Urine pH Ur Specific [place] Urine Protein Urine Glucose (UA) Urine Ketones Urine Blood Urine Nitrite Ur Leukocyte Esterase Urine WBC (Auto) Urine RBC (Auto) 06/24/20 19:47 Troponin I < 0.012 NT-Pro-B Natriuret Pep 327 H Impressions: Chest X-Ray 06/24/20 19:36 IMPRESSION: Chronic lung changes. Likely superimposed pneumonia in the right lung. Chest/Abdomen CTA 06/24/20 21:39 IMPRESSION: 1. No pulmonary embolus. 2. Numerous solid pulmonary nodules, the largest in the left lower lobe measuring 3.1 cm. There is also extensive multilevel mediastinal and hilar lymphadenopathy and questionable lytic lesion of the T7 vertebral body. These findings are compatible with metastatic disease. Unknown primary. 3. Moderate right pleural effusion with right basilar compressive atelectasis. 4. Patchy airspace opacities in the right lung may represent a new bronchial spread of neoplasm or infectious pneumonic process related to bronchial compression by right hilar lymphadenopathy. 5. Coronary artery atherosclerosis. This exam was performed according to our departmental dose-optimization program, which includes automated exposure control, adjustment of the mA and/or kV according to patient size and/or use of iterative reconstruction technique. Status: Image reviewed by me Assessment & Plan - Diagnosis (1) Multiple lung nodules Is this a current diagnosis for this admission?: Yes Plan: Multiple lung nodules, hilar adenopathy, lytic lesion T7, heavy tobacco use, overall picture concerning for primary lung cancer. Ultimately he would benefit from a biopsy but he needs to have Covid ruled out and a few days of antibiotics before any biopsy is undertaken. It may be best to consider thoracentesis first, but here also would rule out Covid first and give him several days of antibiotics before doing this. I will also consult Dr. Veras from pulmonology to follow and may consider bronchoscopy. Will follow. - Time Time Spent: Greater than 70 Minutes
[2020-06-25] MEDS: ENOXAPARIN SODIUM INJ 40 MG/0.4 ML DISP.SYRIN SUBCUT SCH (09:54)
[2020-06-25] MEDS: FAMOTIDINE 20 MG TABLET PO SCH ×2 (09:54→21:20)
[2020-06-25] MEDS: ACETAMINOPHEN 325 MG TABLET PO PRN ×2 (10:11→14:06)
[2020-06-25] MEDS ORDERED: KETOROLAC TROMETHAMINE INJ/PF 30 MG/1 ML SDV IV ONE (11:24)
[2020-06-25] MEDS: BENZONATATE 100 MG CAPSULE PO SCH ×2 (14:06→21:20)
--- NOTE | 2020-06-25 17:36 | EKG REPORT ---
SEVERITY:- BORDERLINE ECG - SINUS TACHYCARDIA ATRIAL PREMATURE COMPLEX PROBABLE LEFT ATRIAL ABNORMALITY LOW VOLTAGE IN FRONTAL LEADS : Confirmed by: Bhavana Aguilar 25-Jun-2020 17:36:18
--- NOTE | 2020-06-25 18:25 | PDOC PROGRESS REPORT ---
Subjective Date:: 06/25/20 Subjective:: HENRY OSUNA is a 70 year old male with a history of hypertension comes with 4 days duration of nonproductive cough and shortness of breath with exertion. Patient also reports that he had a fever of 102 at home this morning. He generally feels very weak, has decreased appetite. He states that the shortness of breath has been progressively getting worse and today he even feels short of breath at rest and he has to prop himself up on his bed to sleep. He states that he had leg swelling few weeks back for which Doppler ultrasound was done and there was no DVT but ultrasound done at that time showed an incidental lymphadenopathy in his left groin area and biopsy was done he was told that it was negative for malignancy. Prior to 4 days ago patient states that he was fully functional and denies any weight loss, night sweating, chronic cough, hemoptysis, nausea, vomiting, abdominal pain, constipation, diarrhea or any change in his urinary habits. He states that he had a colonoscopy 2 months back and was told that it was negative for cancer. He is a former smoker but this been many years since he quit smoking. Patient denies any recent sick contact history. 06/25/20 D1 hospital stay. He was seen and examined at bedside. Still coughing quite a lot. On 2L nasal cannula O2 support. Dr. León reviewed his CT chest findings and suggested a few days of abx before pursuing diagnostic work up of lung nodules and pleural effusion. He is currently on ceftri and azithro for Pneumonia. Reason For Visit: DIFFICULTY BREATHING,FEVER,WEAKNESS Physical Exam Vital Signs: Temp Pulse Resp BP Pulse Ox 98.2 F 94 22 H 131/64 H 97 06/25/20 16:00 06/25/20 16:00 06/25/20 16:00 06/25/20 16:00 06/25/20 16:35 Pulse Oximeter Continuous Start: 06/25/20 00:36 Freq: RTQ4 Status: Active Protocol: Document 06/25/20 16:35 [facility] (Rec: 06/25/20 16:37 [facility] [email or web address]) Pulse Oximetry Assessment Oxygen Saturation (92-100) 97 Oxygen Flow Rate (L/min) 3 Oxygen Delivery Method Nasal Cannula Equipment Usage Equipment Standby Continuous SpO2 Machine # -- Intake & Output 06/24/20 06/25/2006/26/20 06:59 06:59 06:59 Intake Total 1050 Balance 1050 Weight 78.925 kg 73.6 kg General appearance: PRESENT: cooperative, mild distress Head exam: PRESENT: atraumatic, normocephalic Eye exam: PRESENT: EOMI, PERRLA Mouth exam: PRESENT: moist Neck exam: PRESENT: full ROM Respiratory exam: PRESENT: decreased breath sounds, rales, rhonchi, symmetrical Cardiovascular exam: PRESENT: RRR, +S1, +S2 GI/Abdominal exam: PRESENT: normal bowel sounds, soft. ABSENT: rebound, tenderness Extremities exam: PRESENT: full ROM Musculoskeletal exam: PRESENT: full ROM Neurological exam: PRESENT: alert, awake, oriented to person, oriented to place, oriented to time, oriented to situation Psychiatric exam: PRESENT: normal mood Skin exam: PRESENT: normal color Results Laboratory Results: 06/24/20 19:47 06/24/20 19:47 06/24/20 06/24/20 06/24/20 19:47 19:47 19:52 WBC 6.1 RBC 4.47 Hgb 11.5 L Hct 34.7 L MCV 78 L MCH 25.8 L MCHC 33.2 RDW 16.0 H Plt Count 251 Seg Neutrophils % 85.8 H Sodium 134.7 L Potassium 4.0 Chloride 103 Carbon Dioxide 21 L Anion Gap 11 BUN 16 Creatinine 0.97 Est GFR ( Amer) > 60 Glucose 122 H Lactic Acid Calcium 9.1 Total Bilirubin 0.6 AST 76 H Alkaline Phosphatase 287 H Total Protein 6.1 L Albumin 3.4 L Urine Color YELLOW Urine Appearance SLIGHTLY-CLOUDY Urine pH 5.0 Ur Specific Hilliard 1.025 Urine Protein 30 H Urine Glucose (UA) NEGATIVE Urine Ketones NEGATIVE Urine Blood NEGATIVE Urine Nitrite NEGATIVE Ur Leukocyte Esterase NEGATIVE Urine WBC (Auto) 2 Urine RBC (Auto) 1 06/24/20 21:20 WBC RBC Hgb Hct MCV MCH MCHC RDW Plt Count Seg Neutrophils % Sodium Potassium Chloride Carbon Dioxide Anion Gap BUN Creatinine Est GFR ( Amer) Glucose Lactic Acid 1.2 Calcium Total Bilirubin AST Alkaline Phosphatase Total Protein Albumin Urine Color Urine Appearance Urine pH Ur Specific Hilliard Urine Protein Urine Glucose (UA) Urine Ketones Urine Blood Urine Nitrite Ur Leukocyte Esterase Urine WBC (Auto) Urine RBC (Auto) 06/24/20 19:47 Troponin I < 0.012 NT-Pro-B Natriuret Pep 327 H Impressions: Chest X-Ray 06/24/20 19:36 IMPRESSION: Chronic lung changes. Likely superimposed pneumonia in the right lung. Chest/Abdomen CTA 06/24/20 21:39 IMPRESSION: 1. No pulmonary embolus. 2. Numerous solid pulmonary nodules, the largest in the left lower lobe measuring 3.1 cm. There is also extensive multilevel mediastinal and hilar lymphadenopathy and questionable lytic lesion of the T7 vertebral body. These findings are compatible with metastatic disease. Unknown primary. 3. Moderate right pleural effusion with right basilar compressive atelectasis. 4. Patchy airspace opacities in the right lung may represent a new bronchial spread of neoplasm or infectious pneumonic process related to bronchial compression by right hilar lymphadenopathy. 5. Coronary artery atherosclerosis. This exam was performed according to our departmental dose-optimization program, which includes automated exposure control, adjustment of the mA and/or kV according to patient size and/or use of iterative reconstruction technique. Assessment and Plan - Diagnosis (1) Pneumonia Qualifiers: Pneumonia type: due to unspecified organism Laterality: right Lung location: unspecified part of lung Qualified Code(s): J18.9 - Pneumonia, unspecified organism Is this a current diagnosis for this admission?: Yes Plan: -Came in due to cough and SOB - CT chest patchy airspace opacities in the right lung, multiple lung nodules largest measuring 3.1 cm left lower lobe - post obstructive pneumonia fr malignancy or CAP or COVID -Blood and sputum culture pending -Covid test pending -On ceftriaxone and azithromycin for community-acquired pneumonia -Oncology following for work-up of nodules -Pulmonology consulted as well (2) Suspected COVID-19 virus infection Is this a current diagnosis for this admission?: Yes Plan: Patient has symptoms suspicious for COVID-19 Continue supportive care with O2 supplement to keep saturation above 94% Tylenol as needed for fever Follow-up with test result (3) Multiple lung nodules Is this a current diagnosis for this admission?: Yes Plan: Patient denies chronic cough or constitutional symptoms beyond 4 days, former smoker CT chest was significant for numerous solid pulmonary nodules with the largest being 3.1 cm in the left lower lobe with extensive multilevel mediastinal lymphadenopathy and lytic lesion on T7 vertebra Patient reports that he had biopsy of lymph node at left inguinal area which was negative Recent colonoscopy was negative for malignancy per Dr. León he would need a lung biopsy and or thoracentesis but ideally after he has received a few days of abx (4) Pleural effusion Is this a current diagnosis for this admission?: Yes Plan: -Moderate-sized right pleural effusion highly suspicious for malignant pleural effusion given multiple lung nodules -We will need thoracentesis ideally after a few days of antibiotics (5) Hypertension Is this a current diagnosis for this admission?: Yes Plan: We will hold blood pressure medications for now due to volume depletion (6) Microcytic anemia Is this a current diagnosis for this admission?: Yes Plan: -Microcytic hypochromic anemia -We will order iron studies - Time Time Spent with patient: 35 or more minutes Medications reviewed and adjusted accordingly: Yes Anticipated Discharge Disposition: Home, Self Care Anticipated Discharge Timeframe: to be determined
[2020-06-25] MEDS: GUAIFENESIN/D-METHORPHAN (200-20 MG) SYRUP 10 ML PO PRN (18:26)
[2020-06-25 18:53] LABS: ABSOLUTE RETICS # 0.035 10^6/uL (0.028-0.122); RETICULOCYTE COUNT (AUTO) 0.79 % (0.66-2.85)
[2020-06-25 19:06] LABS: IRON(TIBC) 15.2 ug/dL (49-181)
[2020-06-25] MEDS: CEFTRIAXONE 1 GM/D5W RTU 1 GM/50 ML RTUPB IV SCH (21:20)
[2020-06-25] MEDS: AZITHROMYCIN 500 MG in DEXTROSE 5%-WATER 250 ML IV SCH (22:00)
[2020-06-26] MEDS: FLUTICASONE NASAL SPRAY 50 MCG/SPRY 120 SPRAY/16 GM NASL SCH ×3 (01:15→22:12)
[2020-06-26] MEDS ORDERED: FLUTICASONE NASAL SPRAY 50 MCG/SPRY 120 SPRAY/16 GM ONE (01:25)
[2020-06-26] MEDS: BENZONATATE 100 MG CAPSULE PO SCH ×3 (05:09→22:16)
[2020-06-26] MEDS: NORMAL SALINE 1000 ML 1,000 ML IV PRN (06:33)
--- NOTE | 2020-06-26 08:03 | PDOC PROGRESS REPORT ---
Subjective Date:: 06/26/20 Subjective:: Patient seems clinically better today. Discussed his case with pulmonology, plan for right thoracentesis tomorrow. If that is nondiagnostic he will need ultimate bronchoscopy. Reason For Visit: DIFFICULTY BREATHING,FEVER,WEAKNESS Physical Exam Vital Signs: Temp Pulse Resp BP Pulse Ox 97.6 F 93 22 H 170/69 H 97 06/25/20 20:40 06/26/20 02:00 06/25/20 20:40 06/25/20 20:40 06/26/20 04:05 Pulse Oximeter Continuous Start: 06/25/20 00:36 Freq: RTQ4 Status: Active Protocol: Document 06/26/20 04:05 [facility] (Rec: 06/26/20 06:10 [facility] [id number]) Pulse Oximetry Assessment Oxygen Saturation (92-100) 97 Oxygen Flow Rate (L/min) 2 Oxygen Delivery Method Nasal Cannula Fraction of Inspired Oxygen (FIO2) 28 Equipment Usage Equipment in Use Continuous SpO2 Machine # -- Additional RT Notes Other Nurses station monitor Intake & Output 06/25/20 06/26/20 06/27/20 06:59 06:59 06:59 Intake Total 1050 2300 Balance 1050 2300 Weight 78.925 kg 78.1 kg General appearance: PRESENT: no acute distress, well-developed, well-nourished Head exam: PRESENT: atraumatic, normocephalic Eye exam: PRESENT: conjunctiva pink, EOMI, PERRLA. ABSENT: scleral icterus Ear exam: PRESENT: normal external ear exam Mouth exam: PRESENT: moist, tongue midline Neck exam: ABSENT: carotid bruit, JVD, lymphadenopathy, thyromegaly Respiratory exam: PRESENT: clear to auscultation kayce. ABSENT: rales, rhonchi, wheezes Cardiovascular exam: PRESENT: RRR. ABSENT: diastolic murmur, rubs, systolic murmur Pulses: PRESENT: normal dorsalis pedis pul Vascular exam: PRESENT: normal capillary refill GI/Abdominal exam: PRESENT: normal bowel sounds, soft. ABSENT: distended, guarding, mass, organolmegaly, rebound, tenderness Rectal exam: PRESENT: deferred Extremities exam: PRESENT: full ROM. ABSENT: calf tenderness, clubbing, pedal edema Neurological exam: PRESENT: alert, awake, oriented to person, oriented to place, oriented to time, oriented to situation, CN II-XII grossly intact. ABSENT: motor sensory deficit Psychiatric exam: PRESENT: appropriate affect, normal mood. ABSENT: homicidal ideation, suicidal ideation Skin exam: PRESENT: dry, intact, warm. ABSENT: cyanosis, rash Results Laboratory Results: 06/24/20 19:47 06/24/20 19:47 06/25/20 06/25/20 06/25/20 18:45 18:45 18:45 Retic Count (auto) 0.79 Iron 15.2 L TIBC 259 % Saturation 6 Ferritin 463.00 C-Reactive Protein 193.7 H Vitamin B12 896.0 Folate 16.80 06/26/20 04:29 Retic Count (auto) Iron TIBC % Saturation Ferritin 426.00 C-Reactive Protein Vitamin B12 Folate 06/24/20 19:47 Troponin I < 0.012 NT-Pro-B Natriuret Pep 327 H Impressions: Chest X-Ray 06/24/20 19:36 IMPRESSION: Chronic lung changes. Likely superimposed pneumonia in the right lung. Chest/Abdomen CTA 06/24/20 21:39 IMPRESSION: 1. No pulmonary embolus. 2. Numerous solid pulmonary nodules, the largest in the left lower lobe measuring 3.1 cm. There is also extensive multilevel mediastinal and hilar lymphadenopathy and questionable lytic lesion of the T7 vertebral body. These findings are compatible with metastatic disease. Unknown primary. 3. Moderate right pleural effusion with right basilar compressive atelectasis. 4. Patchy airspace opacities in the right lung may represent a new bronchial spread of neoplasm or infectious pneumonic process related to bronchial compression by right hilar lymphadenopathy. 5. Coronary artery atherosclerosis. This exam was performed according to our departmental dose-optimization program, which includes automated exposure control, adjustment of the mA and/or kV according to patient size and/or use of iterative reconstruction technique. Assessment & Plan - Diagnosis (1) Multiple lung nodules Is this a current diagnosis for this admission?: Yes Plan: Plan as above, may need bronchoscopy ultimately. (2) Pleural effusion Is this a current diagnosis for this admission?: Yes Plan: Plan for right thoracentesis tomorrow. Would like another 24 hours of antibiotics prior to doing that so that is why were not doing it today. - Time Time Spent with patient: 35 or more minutes
[2020-06-26] MEDS ORDERED: IRON SUCROSE COMPLEX INJ/PF 100 MG/5 ML SDV IV ONE (08:30)
[2020-06-26] MEDS: ENOXAPARIN SODIUM INJ 40 MG/0.4 ML DISP.SYRIN SUBCUT SCH (09:38)
[2020-06-26] MEDS: FAMOTIDINE 20 MG TABLET PO SCH ×2 (09:39→22:16)
[2020-06-26] MEDS: ZINC SULFATE 220 MG CAPSULE PO SCH (09:39)
[2020-06-26] MEDS: GUAIFENESIN/D-METHORPHAN (200-20 MG) SYRUP 10 ML PO PRN ×2 (09:39→13:37)
[2020-06-26] MEDS ORDERED: MORPHINE SULFATE 10 MG/ML INJ IV PRN ×2 (10:10→15:56)
[2020-06-26 10:26] LABS: INTERNATIONAL RATION (INR) 1.13; PROTHROMBIN TIME 14.7 SEC (11.4-15.4)
--- NOTE | 2020-06-26 16:21 | PDOC PROGRESS REPORT ---
Subjective Date:: 06/26/20 Subjective:: HENRY OSUNA is a 70 year old male with a history of hypertension comes with 4 days duration of nonproductive cough and shortness of breath with exertion. Patient also reports that he had a fever of 102 at home this morning. He generally feels very weak, has decreased appetite. He states that the shortness of breath has been progressively getting worse and today he even feels short of breath at rest and he has to prop himself up on his bed to sleep. He states that he had leg swelling few weeks back for which Doppler ultrasound was done and there was no DVT but ultrasound done at that time showed an incidental lymphadenopathy in his left groin area and biopsy was done he was told that it was negative for malignancy. Prior to 4 days ago patient states that he was fully functional and denies any weight loss, night sweating, chronic cough, hemoptysis, nausea, vomiting, abdominal pain, constipation, diarrhea or any change in his urinary habits. He states that he had a colonoscopy 2 months back and was told that it was negative for cancer. He is a former smoker but this been many years since he quit smoking. Patient denies any recent sick contact history. 06/25/20 D1 hospital stay. He was seen and examined at bedside. Still coughing quite a lot. On 2L nasal cannula O2 support. Dr. León reviewed his CT chest findings and suggested a few days of abx before pursuing diagnostic work up of lung nodules and pleural effusion. He is currently on ceftri and azithro for Pneumonia. 06/26/20 D2 hospital stay. He was seen and examined at bedside. Not much improvement in terms of breathing status, still coughing a lot despite robitussin and tessalon. I have added morphine as well. Plan for thoracentesis tomorrow. I was able to talk to maxim his daughter and updated her of the plan of treatment. Reason For Visit: PNEUMONIA,MULTIPLE CHEST NODULES Physical Exam Vital Signs: Temp Pulse Resp BP Pulse Ox 98.4 F 108 H 16 164/67 H 100 06/26/20 12:10 06/26/20 14:00 06/26/20 11:37 06/26/20 11:37 06/26/20 11:37 Pulse Oximeter Continuous Start: 06/25/20 00:36 Freq: RTQ4 Status: Active Protocol: Document 06/26/20 04:05 [facility] (Rec: 06/26/20 06:10 [facility] [email or web address]) Pulse Oximetry Assessment Oxygen Saturation (92-100) 97 Oxygen Flow Rate (L/min) 2 Oxygen Delivery Method Nasal Cannula Fraction of Inspired Oxygen (FIO2) 28 Equipment Usage Equipment in Use Continuous SpO2 Machine # -- Additional RT Notes Other Nurses station monitor Intake & Output 06/25/20 06/26/20 06/27/20 06:59 06:59 06:59 Intake Total 1050 2300 1000 Balance 1050 2300 1000 Weight 78.925 kg 78.1 kg General appearance: PRESENT: cooperative, mild distress Head exam: PRESENT: atraumatic, normocephalic Eye exam: PRESENT: EOMI, PERRLA Mouth exam: PRESENT: moist Neck exam: PRESENT: full ROM Respiratory exam: PRESENT: crackles, rales, symmetrical, tachypnea Cardiovascular exam: PRESENT: RRR, +S1, +S2 Pulses: PRESENT: +2 pedal pulses bilateral GI/Abdominal exam: PRESENT: normal bowel sounds, soft. ABSENT: rebound, tenderness Extremities exam: PRESENT: full ROM Musculoskeletal exam: PRESENT: full ROM Neurological exam: PRESENT: alert, awake, oriented to person, oriented to place, oriented to time, oriented to situation Psychiatric exam: PRESENT: normal mood Skin exam: PRESENT: normal color Results Laboratory Results: 06/24/20 19:47 06/24/20 19:47 06/25/20 06/25/20 06/25/20 18:45 18:45 18:45 Retic Count (auto) 0.79 Iron 15.2 L TIBC 259 % Saturation 6 Ferritin 463.00 C-Reactive Protein 193.7 H Vitamin B12 896.0 Folate 16.80 06/26/20 04:29 Retic Count (auto) Iron TIBC % Saturation Ferritin 426.00 C-Reactive Protein Vitamin B12 Folate 06/24/20 19:47 Troponin I < 0.012 NT-Pro-B Natriuret Pep 327 H Impressions: Chest X-Ray 06/24/20 19:36 IMPRESSION: Chronic lung changes. Likely superimposed pneumonia in the right lung. Chest/Abdomen CTA 06/24/20 21:39 IMPRESSION: 1. No pulmonary embolus. 2. Numerous solid pulmonary nodules, the largest in the left lower lobe measuring 3.1 cm. There is also extensive multilevel mediastinal and hilar lymphadenopathy and questionable lytic lesion of the T7 vertebral body. These findings are compatible with metastatic disease. Unknown primary. 3. Moderate right pleural effusion with right basilar compressive atelectasis. 4. Patchy airspace opacities in the right lung may represent a new bronchial spread of neoplasm or infectious pneumonic process related to bronchial compression by right hilar lymphadenopathy. 5. Coronary artery atherosclerosis. This exam was performed according to our departmental dose-optimization program, which includes automated exposure control, adjustment of the mA and/or kV according to patient size and/or use of iterative reconstruction technique. Assessment and Plan - Diagnosis (1) Pneumonia Qualifiers: Pneumonia type: due to unspecified organism Laterality: right Lung location: unspecified part of lung Qualified Code(s): J18.9 - Pneumonia, unspecified organism Is this a current diagnosis for this admission?: Yes Plan: -Came in due to cough and SOB - CT chest patchy airspace opacities in the right lung, multiple lung nodules largest measuring 3.1 cm left lower lobe - post obstructive pneumonia fr malignancy or CAP or COVID -Blood culture no growth -Covid test NEGATIVE -On ceftriaxone and azithromycin for community-acquired pneumonia -Oncology following for work-up of nodules for thoracentesis tomorrow -Pulmonology consulted as well (2) Suspected COVID-19 virus infection Is this a current diagnosis for this admission?: Yes Plan: COVID negative Continue supportive care with O2 supplement to keep saturation above 94% Tylenol as needed for fever (3) Multiple lung nodules Is this a current diagnosis for this admission?: Yes Plan: -Patient denies chronic cough or constitutional symptoms beyond 4 days, former smoker -CT chest was significant for numerous solid pulmonary nodules with the largest being 3.1 cm in the left lower lobe with extensive multilevel mediastinal lymphadenopathy and lytic lesion on T7 vertebra -Patient reports that he had biopsy of lymph node at left inguinal area which was negative -Recent colonoscopy was negative for malignancy -Thoracentesis tomorrow possible Bronch if thoracentesis is negative (4) Pleural effusion Is this a current diagnosis for this admission?: Yes Plan: -Moderate-sized right pleural effusion highly suspicious for malignant pleural effusion given multiple lung nodules - IR for Thoracentesis tomorrow - will send for cytology, culture, albumin, protein, glucose, AFB (5) Hypertension Is this a current diagnosis for this admission?: Yes Plan: We will hold blood pressure medications for now due to volume depletion (6) Microcytic anemia Is this a current diagnosis for this admission?: Yes Plan: -Microcytic hypochromic anemia -iron studies showing consistent with MIRIAM - last colonoscopy no cocern for bleeding or cancerous polyps - 1 dose of venofer - will continue to monitor - Time Time Spent with patient: 25-34 minutes Medications reviewed and adjusted accordingly: Yes Anticipated Discharge Disposition: Home, Self Care Anticipated Discharge Timeframe: to be determined
--- OUTSIDE RECORDS SUMMARY | 2020-06-26 17:44 | XMS REPORT ---
:1950 Author Organization [facility] Address [facility] [address] [place] [address] Care Team Providers Name Role Phone Romelia Gramajo Attending Clinician Unavailable JEANNE Attending Clinician Unavailable Rodney Attending Clinician Unavailable Guido Attending Clinician Unavailable Chelsi Attending Clinician Unavailable Allergies, Adverse Reactions, Alerts This patient has no known allergies or adverse reactions. Medications Ordered Filled Start Stop Current Ordering Indication Dosage Frequency Signature Comments Components Medication Medication Date Date Medication? Clinician (SIG) Name Name amlodipine No 1 amlodipine 10 mg 10 mg tablet Take tablet 1 tablet by Take 1 oral route tablet by for 30 oral route days. for 30 days. hydrochloro No hydrochlor thiazide othiazide 12.5 mg 12.5 mg tablet 1 tablet 1 tablet po tablet po qd qd PreserVisio No PreserVisi n AREDS 1 on AREDS 1 capsule po capsule po qd qd acyclovir No acyclovir 800 mg 800 mg tablet tablet lisinopril No 1 Q1D lisinopril 10 mg 10 mg tablet Take tablet 1 tablet Take 1 every day tablet by oral every day route for by oral 30 days. route for 30 days. 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 Gout 00:00: 00 Hypertensiv Hypertensiv Problem Active e disorder e Disorder 05-07 00:00: 00 Mass of Mass of Problem Active wrist Wrist 05-07 00:00: 00 Pain of Pain of Problem Active right elbow Right Elbow 05-07 joint Joint 00:00: 00 Pain in Pain in Problem Active right hand Right Hand 05-07 00:00: 00 Swollen Swollen Problem Active 2018- ankle Ankle 05-07 region Region 00:00: 00 Sinus Sinus Diagnosis active histiocytos histiocytos is with is with massive massive lymphadenop lymphadenop athy athy Procedures Procedure Date / Time Performed Performing Clinician Marino e Biopsy/excision, Lymph Node(s), 2020-05-09 00:00:00 Open, Superficial (Surg) OFFICE/OUTPATIENT VISIT EST 2020-04-10 08:00:00 OFFICE/OUTPATIENT VISIT EST 2020-03-25 14:15:00 RADIOLOGIC EXAM HAND 3 VIEWS 2019-05-07 00:00:00 OFFICE/OUTPATIENT VISIT NEW 2019-03-28 09:30:[address] cataract Results Test Description Test Time Test Comments Text Results Atomic Results Result Comments leukemia/lymphoma comp panel 2020-05-13 20:29:00 Test Item Value Reference Range Comments flow interpretation (test code = flow interpretation) comment . flow comment (test code = flow comment) comment . specimen type (test code = specimen type) comment . assessment of leukocytes (test code = assessment of leukocytes) comment . viability (test code = viability) comment . analysis and gating strategy (test code = analysis and gatin g strategy) comment . phenotype chart (test code = phenotype chart) comment . resulting pathologist name (test code = resulting pathologist na me) comment . comment (test code = comment) comment . Pathology [id number] 00:00:00Path ReportUNC 2019 CORONAVIRUS YUMI PANEL\S\ 2020-04-02 07:40:00 Test Item Value Reference Range Comments [facility] CORONAVIRUS 2019 YUMI [facility] (test code = NASOPHARYNGEAL SOURCE3) [facility] 2019 NOVEL CORONAVIRUS YUMI (test code = NOT DETECTED [id number]) HIV 1/2 ANTIGEN/ANTIBODY,FOURTH GENERATION [id number] 11:10:00NON-REACTIVE PSA (FREE AND TOTAL)2020-03-28 11:10:00 Test Item Value Reference Range Comments PSA, % FREE (test code = 59296-9) 20 % (calc) >25 PSA, FREE (test code = 66057-6) 0.1 ng/mL CREATININE, POC\S\2020-03-26 14:31:00 Test Item Value Reference Range Comments CREATININE, POC (test code = ICREA) 0.9 mg/dL 0.5-1.5 CBC (H/H, RBC, INDICES, WBC, PLT)2020-03-25 15:08:00 Test Item Value Reference Range Comments MCV (test code = 92206581) 79.5 fL 80.0-100.0 PLATELET COUNT (test code = 34814724) 275 Thousand/uL 140-400 MCH (test code = 95328410) 25.5 pg 27.0-33.0 RDW (test code = 85819734) 16.2 % 11.0-15.0 WHITE BLOOD CELL COUNT (test code = 5.6 Thousand/uL 3.8-10.8 23303640) HEMOGLOBIN (test code = 22976813) 12.7 g/dL 13.2-17.1 MCHC (test code = 70534188) 32.1 g/dL 32.0-36.0 MPV (test code = 04603237) 11.4 fL 7.5-12.5 HEMATOCRIT (test code = 34091016) 39.6 % 38.5-50.0 RED BLOOD CELL COUNT (test code = 65717473) 4.98 Million/uL 4.20 -5.80 COMPREHENSIVE METABOLIC [id number] 15:08:00 Test Item Value Reference Range Comments AST (test code = 03513848) 18 U/L 10-35 ALKALINE PHOSPHATASE (test code = 65225928) 110 U/L 35-1 44 CALCIUM (test code = 78330089) 10.2 mg/dL 8.6-10.3 BILIRUBIN, TOTAL (test code = 18222227) 0.5 mg/dL 0.2-1.2 ALBUMIN/GLOBULIN RATIO (test code = 1.4 (calc) 1.0-2.5 12516336) GLOBULIN (test code = 21606391) 3.1 g/dL (calc) 1.9-3.7 ALBUMIN (test code = 90439172) 4.4 g/dL 3.6-5.1 PROTEIN, TOTAL (test code = 38061689) 7.5 g/dL 6.1-8.1 ALT (test code = 11385144) 20 U/L 9-46 LIPID PANEL, [id number] 10:45:00 Test Item Value Reference Range Comments TRIGLYCERIDES (test code = 34063250) 93 mg/dL <150 HDL CHOLESTEROL (test code = 57854397) 61 mg/dL >40 NON HDL CHOLESTEROL (test code = 52273306) 138 mg/dL (calc) <130 LDL-CHOLESTEROL (test code = 42492936) 119 mg/dL (calc) CHOLESTEROL, TOTAL (test code = 13139954) 199 mg/dL <200 CHOL/HDLC RATIO (test code = 39999457) 3.3 (calc) <5.0 COMPREHENSIVE METABOLIC [id number] 10:45:00 Test Item Value Reference Range Comments eGFR NON-AFR. BENINESE (test code = 101 mL/min/1.73m2 > OR = 60 06402884) GLOBULIN (test code = 18896637) 3.2 g/dL (calc) 1.9-3.7 PROTEIN, TOTAL (test code = 76214162) 7.6 g/dL 6.1-8.1 UREA NITROGEN (BUN) (test code = 65598229) 17 mg/dL 7-25 ALT (test code = 01856059) 18 U/L 9-46 ALBUMIN/GLOBULIN RATIO (test code = 1.4 (calc) 1.0-2.5 28816838) BUN/CREATININE RATIO (test code = 26 (calc) 6-22 13866608) ALKALINE PHOSPHATASE (test code = 100 U/L 40-115 68335707) CALCIUM (test code = 37644115) 9.5 mg/dL 8.6-10.3 GLUCOSE (test code = 85601695) 91 mg/dL 65-99 CARBON DIOXIDE (test code = 43271263) 26 mmol/L 20-32 SODIUM (test code = 68155657) 138 mmol/L 135-146 CREATININE (test code = 22638225) 0.65 mg/dL 0.70-1.25 CHLORIDE (test code = 27174057) 103 mmol/L 98-110 ALBUMIN (test code = 34363191) 4.4 g/dL 3.6-5.1 POTASSIUM (test code = 74767937) 4.3 mmol/L 3.5-5.3 eGFR (test code = 117 mL/min/1.73m2 > OR = 60 29352174) AST (test code = 13429538) 21 U/L 10-35 BILIRUBIN, TOTAL (test code = 02842169) 0.8 mg/dL 0.2-1.2 CBC (INCLUDES DIFF/PLT)2019-03-28 10:45:00 Test Item Value Reference Range Comments ABSOLUTE NEUTROPHILS (test code = 49528612) 3986 cells/uL 1500 -7800 HEMOGLOBIN (test code = 71187909) 13.7 g/dL 13.2-17.1 MCH (test code = 29047966) 27.6 pg 27.0-33.0 RED BLOOD CELL COUNT (test code = 51093421) 4.97 Million/uL 4.20 -5.80 EOSINOPHILS (test code = 05197540) 2.5 % PLATELET COUNT (test code = 73499738) 161 Thousand/uL 140-400 MCV (test code = 80428997) 85.5 fL 80.0-100.0 LYMPHOCYTES (test code = 96135449) 11.8 % ABSOLUTE LYMPHOCYTES (test code = 12044758) 625 cells/uL 850- 3900 MONOCYTES (test code = 15569207) 9.9 % HEMATOCRIT (test code = 96953640) 42.5 % 38.5-50.0 ABSOLUTE BASOPHILS (test code = 87463393) 32 cells/uL 0-200 BASOPHILS (test code = 29896481) 0.6 % WHITE BLOOD CELL COUNT (test code = 5.3 Thousand/uL 3.8-10.8 02983613) ABSOLUTE MONOCYTES (test code = 92391176) 525 cells/uL 200-95 0 ABSOLUTE EOSINOPHILS (test code = 92061625) 133 cells/uL 15-5 00 NEUTROPHILS (test code = 89866745) 75.2 % MCHC (test code = 66504977) 32.2 g/dL 32.0-36.0 MPV (test code = 70242809) 10.6 fL 7.5-12.5 RDW (test code = 32870124) 16.1 % 11.0-15.0 Assessments Condition Name Status Diagnosis Date Treating Clinici an Inguinal lymphadenopathy Active 2020-05-25 19:22:36 Right inguinal hernia Active 2020-05-25 19:22:36 Sinus histiocytosis with massive Active 2020-05-25 19:2 5:32 lymphadenopathy Inguinal lymphadenopathy Active 2020-05-08 14:24:33 Right inguinal hernia Active 2020-05-08 14:26:57 Other hemorrhoids Active Body mass index (BMI) 26.0-26.9, adult Active Polyp of colon Active Dvrtclos of intest, part unsp, 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 w/o bleed Essential (primary) hypertension Active Pain in left leg Active Other specified soft tissue disorders Active Mixed hyperlipidemia Active Pain of right elbow joint Active 2019-05-07 14:46:26 Pain in right hand Active 2019-05-07 14:58:25 Gout Active 2019-05-07 16:46:30 Mass of wrist Active 2019-05-07 16:46:44 Chronic tophaceous gout Active 2019-05-07 16:46:59 Essential (primary) hypertension Active Encounter for screening for lipoid Active disorders Persons encountering health services in Active oth circumstances Body mass index (BMI) 26.0-26.9, adult Active Encounters Start End Encounter Admission Attending Care Care Encounter Date/Time Date/Time Type Type Clinicians Facility Department ID 2020-06-25 2020-06-25 Outpatient [facility] [id number] 00:00:00 00:00:00 [facility] Medical Oncology Oncology [facility] 2020-05-27 2020-05-27 Outpatient [facility] [id number] 00:00:00 00:00:00 [facility] Medical Oncology Oncology [facility] 2020-05-23 2020-05-23 Romelia Barth [facility] [id number] 00:00:00 00:00:00 [facility] Oncology Oncology [facility] 2020-05-20 2020-05-20 Outpatient [facility] [id number] 00:00:00 00:00:00 [facility] Oncology Oncology [facility] 2020-05-19 2020-05-19 Outpatient [facility] [id number] 00:00:00 00:00:00 [facility] Medical Oncology Oncology [facility] 2020-05-19 2020-05-19 Rommel Castellanos [id number] 00:00:00 00:00:00 Jeanne [facility] [id number] MD: [address] [facility] [address], [place] [address], Ph. 2020-05-13 2020-05-13 Outpatient [facility] [id number] 00:00:00 00:00:00 Medical Medical Oncology Oncology [facility] 2020-05-09 2020-05-09 Outpatient JEANNE [facility] [id number] 00:02:00 00:02:00 ROMMEL Jeffery 2020-05-05 2020-05-05 Outpatient Shahidaer Shahidaer n [id number] 00:00:00 00:00:00 n Medical Medical Oncology [facility] 2020-05-05 2020-05-05 Rommel Castellanos [id number] 00:00:00 00:00:00 Jeanne, Surgical Surgical [id number] MD: [address] [facility] [address], [place] [address], Ph. 2020-04-10 2020-04-10 [facility] [id number]:00:00 08:00:00 [facility] [id number] s [id number] and [id number] Multispecial ty Clinic, 2020-03-25 2020-03-25 [facility] [id number] 14:15:00 14:15:00 [facility] [id number] s [id number] and [id number] Multispecial ty Clinic, 2019-05-07 2019-05-07 Aaron Esparza [facility] [place] [id number] 00:00:00 00:00:00 Barber, Surgical Surgical [id number] DO: [address] [facility], [place] [address], Ph. 2019-03-28 2019-03-28 [facility] [id number] 09:30:00 09:30:00 Julianne Children???s [id number] and [id number] Multispecial [id number] ty Clini Payers Payer Name Policy Type Policy Number Effective Date Expiration D ate Social History Smoking Status Start Date Stop Date Yes - but quit (former) 2020-05-23 14:30:02 2020-05-23 14:30 :02 Social History Observation Description Sex Male Vital Signs Vital Name Observation Time Observation Value Comments Height 2020-05-19 00:00:00 66 [in_i] BMI (Body Mass Index) 2020-05-19 00:00:00 26.4 kg/m2 Body Weight 2020-05-19 00:00:00 163.8 [lb_av] WEIGHT 2020-05-08 08:21:00 72.7 kg HEIGHT 2020-05-08 08:21:00 167.106099 cm WEIGHT 2020-05-06 10:36:00 74.542800 kg HEIGHT 2020-05-06 10:36:00 167.623688 cm BP Systolic 2020-05-05 00:00:00 172 mm[Hg] Body Weight 2020-05-05 00:00:00 163.8 [lb_av] BP Diastolic 2020-05-05 00:00:00 82 mm[Hg] Height 2020-05-05 00:00:00 66 [in_i] BMI (Body Mass Index) 2020-05-05 00:00:00 26.4 kg/m2 Height 2019-05-07 00:00:00 66 [in_i] BMI (Body Mass Index) 2019-05-07 00:00:00 23.4 kg/m2 Body Weight 2019-05-07 00:00:00 145 [lb_av] BMI 2020-05-23 14:17:14 28.4100 BP alvares 2020-05-23 14:17:14 93.0000 mm[Hg] Bdy height 2020-05-23 14:17:14 63.0000 [in_i] SaO2% BldA PulseOx 2020-05-23 14:17:14 98.0000 % Heart rate 2020-05-23 14:17:14 97.0000 /min Resp rate 2020-05-23 14:17:14 18.0000 /min BP sys 2020-05-23 14:17:14 161.0000 mm[Hg] Body temperature 2020-05-23 14:17:14 98.6000 [degF] Weight 2020-05-23 14:17:14 160.4000 [lb_av] Hospital Discharge Instructions 1. Inguinal lymphadenopathy 2. Right inguinal hernia Discussion Note: None recorded. Patient educational handouts: No information available.1. Pain of right elbow joint 2. Pain in right hand XR, hand, 3 or more view 3. Gout gout: care instructions 4. Mass of wrist 5. Chronic tophaceous gout Discussion Note: None recorded.
[2020-06-26] MEDS: AZITHROMYCIN 500 MG in DEXTROSE 5%-WATER 250 ML IV SCH (22:14)
[2020-06-26] MEDS: CEFTRIAXONE 1 GM/D5W RTU 1 GM/50 ML RTUPB IV SCH (22:16)
[2020-06-27] MEDS: BENZONATATE 100 MG CAPSULE PO SCH ×3 (05:44→21:49)
[2020-06-27 05:51] LABS: ABSOLUTE EOSINOPHILS # (AUTO) 0.1 10^3/uL (0.0-0.6); ABSOLUTE LYMPHOCYTES (AUTO) 0.4 10^3/uL (0.5-4.7); ABSOLUTE MONOCYTES (AUTO) 0.6 10^3/uL (0.1-1.4); ABSOLUTE NEUT (AUTO) 3.5 10^3/uL (1.7-8.2); BASOPHILS % (AUTO) 0.5 % (0-2); HEMATOCRIT 30.7 % (37.9-51.0); HEMOGLOBIN 10.1 g/dL (13.5-17.0); LYMPHOCYTES % (AUTO) 8.8 % (13-45); MEAN CORPUSCULAR HEMOGLOBIN 25.5 pg (27.0-33.4); MEAN CORPUSCULAR HGB CONC 32.8 g/dL (32.0-36.0); MEAN CORPUSCULAR VOLUME 78 fl (80-97); MONOCYTES % (AUTO) 12.3 % (3-13); PLATELET COUNT 204 10^3/uL (150-450); RED BLOOD COUNT 3.94 10^6/uL (4.35-5.55); RED CELL DISTRIBUTION WIDTH 16.2 % (11.5-14.0); SEGMENTED NEUTROPHILS % (AUTO) 75.4 % (42-78); TOTAL CELLS COUNTED % (AUTO) 100 %; WHITE BLOOD COUNT 4.7 10^3/uL (4.0-10.5)
[2020-06-27 06:22] LABS: ALBUMIN 2.7 g/dL (3.5-5.0); ALKALINE PHOSPHATASE 266 U/L (38-126); ANION GAP 11 (5-19); ASPARTATE AMINO TRANSFERASE 59 U/L (17-59); BILIRUBIN,DIRECT 0.2 mg/dL (0.0-0.4); BILIRUBIN,TOTAL 0.6 mg/dL (0.2-1.3); BLOOD UREA NITROGEN 9 mg/dL (7-20); CALCIUM 8.4 mg/dL (8.4-10.2); CARBON DIOXIDE 20 mmol/L (22-30); CHLORIDE 106 mmol/L (98-107); GLUCOSE 94 mg/dL (75-110); POTASSIUM 3.8 mmol/L (3.6-5.0); TOTAL PROTEIN 5.2 g/dL (6.3-8.2)
--- NOTE | 2020-06-27 07:53 | PDOC PROGRESS REPORT ---
Subjective Date:: 06/27/20 Subjective:: Still SOB this am w/ cough, planned for thoracentesis Reason For Visit: PNEUMONIA,MULTIPLE CHEST NODULES Physical Exam Vital Signs: Temp Pulse Resp BP Pulse Ox 98.0 F 106 H 18 137/55 H 98 06/26/20 23:25 06/26/20 23:25 06/26/20 23:25 06/26/20 23:25 06/27/20 04:19 Pulse Oximeter Continuous Start: 06/25/20 00:36 Freq: RTQ4 Status: Active Protocol: Document 06/27/20 04:19 LDI (Rec: 06/27/20 04:20 LDI [id number]) Pulse Oximetry Assessment Oxygen Saturation (92-100) 98 Oxygen Flow Rate (L/min) 3 Oxygen Delivery Method Nasal Cannula Fraction of Inspired Oxygen (FIO2) 32 Equipment Usage Equipment in Use Continuous SpO2 Machine # 4 Intake & Output 06/26/20 06/27/20 06/28/20 06:59 06:59 06:59 Intake Total 2300 1400 Output Total 301 Balance 2300 1099 Weight 78.1 kg 74.6 kg General appearance: PRESENT: no acute distress, well-developed, well-nourished Head exam: PRESENT: atraumatic, normocephalic Eye exam: PRESENT: conjunctiva pink, EOMI, PERRLA. ABSENT: scleral icterus Ear exam: PRESENT: normal external ear exam Mouth exam: PRESENT: moist, tongue midline Neck exam: ABSENT: carotid bruit, JVD, lymphadenopathy, thyromegaly Respiratory exam: PRESENT: clear to auscultation kayce. ABSENT: rales, rhonchi, wheezes Cardiovascular exam: PRESENT: RRR. ABSENT: diastolic murmur, rubs, systolic murmur Pulses: PRESENT: normal dorsalis pedis pul Vascular exam: PRESENT: normal capillary refill GI/Abdominal exam: PRESENT: normal bowel sounds, soft. ABSENT: distended, guarding, mass, organolmegaly, rebound, tenderness Rectal exam: PRESENT: deferred Extremities exam: PRESENT: full ROM. ABSENT: calf tenderness, clubbing, pedal edema Neurological exam: PRESENT: alert, awake, oriented to person, oriented to place, oriented to time, oriented to situation, CN II-XII grossly intact. ABSENT: motor sensory deficit Psychiatric exam: PRESENT: appropriate affect, normal mood. ABSENT: homicidal ideation, suicidal ideation Skin exam: PRESENT: dry, intact, warm. ABSENT: cyanosis, rash Results Laboratory Results: 06/27/20 04:20 06/27/20 04:20 06/27/20 06/27/20 04:20 04:20 WBC 4.7 RBC 3.94 L Hgb 10.1 L Hct 30.7 L MCV 78 L MCH 25.5 L MCHC 32.8 RDW 16.2 H Plt Count 204 Seg Neutrophils % 75.4 Sodium 137.1 Potassium 3.8 Chloride 106 Carbon Dioxide 20 L Anion Gap 11 BUN 9 Creatinine 0.67 Est GFR ( Amer) > 60 Glucose 94 Calcium 8.4 Total Bilirubin 0.6 AST 59 Alkaline Phosphatase 266 H Total Protein 5.2 L Albumin 2.7 L 06/24/20 19:47 Troponin I < 0.012 NT-Pro-B Natriuret Pep 327 H Impressions: Chest X-Ray 06/24/20 19:36 IMPRESSION: Chronic lung changes. Likely superimposed pneumonia in the right lung. Chest/Abdomen CTA 06/24/20 21:39 IMPRESSION: 1. No pulmonary embolus. 2. Numerous solid pulmonary nodules, the largest in the left lower lobe measuring 3.1 cm. There is also extensive multilevel mediastinal and hilar lymphadenopathy and questionable lytic lesion of the T7 vertebral body. These findings are compatible with metastatic disease. Unknown primary. 3. Moderate right pleural effusion with right basilar compressive atelectasis. 4. Patchy airspace opacities in the right lung may represent a new bronchial spread of neoplasm or infectious pneumonic process related to bronchial compression by right hilar lymphadenopathy. 5. Coronary artery atherosclerosis. This exam was performed according to our departmental dose-optimization program, which includes automated exposure control, adjustment of the mA and/or kV according to patient size and/or use of iterative reconstruction technique. Assessment & Plan - Diagnosis (1) Multiple lung nodules Is this a current diagnosis for this admission?: Yes Plan: May need bronch, awaiting thoracentesis (2) Pleural effusion Is this a current diagnosis for this admission?: Yes Plan: Thoracentesis today - Time Time Spent with patient: 25-34 minutes
--- NOTE | 2020-06-27 10:19 | PDOC CONSULTATION ---
Consultation Consult Date: 06/27/20 Provider Consulted: LARRY STEPHEN Consult reason:: Multiple pulmonary nodules and right pleural effusion. History of Present Illness Admission Date/PCP: 06/26/20 13:04 CHICO YA NP Patient complains of: Dyspnea and shortness of breath History of Present Illness: HENRY OSUNA is a 70 year old male Patient presents with increasing dyspnea and shortness of breath with a markedly abnormal chest x-ray and subsequent CT scan of the lungs. Interestingly this patient was noted approximately 2 months ago to have sinus histiocytosis after a left inguinal lymph node biopsy. He states that his breathlessness began several days prior to admission with increasing difficulty with exertion. He denies any significant chest pains. He denies any occupational exposure to silica sandblasting or asbestos exposure. He does have a significant history of smoking, smoking as much is 1 pack/day. He smoked for approximately 40 years and was smoking until the time of admission. Past Medical History Cardiac Medical History: Reports: Hypertension Denies: Coronary Artery Disease, Myocardial Infarction Pulmonary Medical History: Denies: Asthma, Bronchitis, Chronic Obstructive Pulmonary Disease (COPD), Pneumonia Neurological Medical History: Denies: Seizures GI Medical History: Denies: Hepatitis, Hiatal Hernia Musculoskeltal Medical History: Denies: Arthritis Psychiatric Medical History: Denies: Depression Hematology: Denies: Anemia, Sickle Cell Disease Past Surgical History Past Surgical History: Denies: Pacemaker Social History Lives with: Family Smoking Status: Former Smoker Cigarettes Packs Per Day: 1 Number of Years Smokin Frequency of Alcohol Use: None Hx Recreational Drug Use: No Drugs: None - Advance Directive Resuscitation Status: Full Code Family History Family History: Reviewed & Not Pertinent Parental Family History Reviewed: No Children Family History Reviewed: No Sibling(s) Family History Reviewed.: No Medication/Allergy Home Medications: Amlodipine Besylate [Norvasc 5 mg Tablet] 10 mg PO DAILY 09/10/19 Indomethacin [Indocin 25 Mg Capsule] 25 mg PO BID 09/10/19 Lisinopril [Prinivil 5 mg Tablet] 10 mg PO DAILY 09/10/19 Valacyclovir HCl [Valacyclovir] 500 mg PO DAILY 09/10/19 Cyclosporine 0.05% Oph Emulsio [Restasis 0.05% Oph Emulsion Pf 0.4 ml] 1 drop OU BID 06/25/20 Allergies/Adverse Reactions: No Known Allergies Allergy (Verified 06/24/20 20:59) Physical Exam Vital Signs: Temp Pulse Resp BP Pulse Ox 99.2 F 108 H 20 166/74 H 100 06/27/20 08:04 06/27/20 08:04 06/27/20 08:04 06/27/20 08:04 06/27/20 08:04 Pulse Oximeter Continuous Start: 06/25/20 00:36 Freq: RTQ4 Status: Active Protocol: Document 06/27/20 08:00 DORCAS (Rec: 06/27/20 09:08 DORCAS [email or web address]) Pulse Oximetry Assessment Oxygen Saturation (92-100) 100 Oxygen Flow Rate (L/min) 3 Oxygen Delivery Method Nasal Cannula Fraction of Inspired Oxygen (FIO2) 32 Equipment Usage Equipment in Use Continuous SpO2 Machine # 4 Intake & Output 06/26/20 06/27/20 06/28/20 06:59 06:59 06:59 Intake Total 2300 1400 Output Total 301 Balance 2300 1099 Weight 78.1 kg 74.6 kg Results Laboratory Results: 06/27/20 04:20 06/27/20 04:20 06/27/20 06/27/20 04:20 04:20 WBC 4.7 RBC 3.94 L Hgb 10.1 L Hct 30.7 L MCV 78 L MCH 25.5 L MCHC 32.8 RDW 16.2 H Plt Count 204 Seg Neutrophils % 75.4 Sodium 137.1 Potassium 3.8 Chloride 106 Carbon Dioxide 20 L Anion Gap 11 BUN 9 Creatinine 0.67 Est GFR ( Amer) > 60 Glucose 94 Calcium 8.4 Total Bilirubin 0.6 AST 59 Alkaline Phosphatase 266 H Total Protein 5.2 L Albumin 2.7 L 06/24/20 19:47 Troponin I < 0.012 NT-Pro-B Natriuret Pep 327 H Impressions: Chest X-Ray 06/24/20 19:36 IMPRESSION: Chronic lung changes. Likely superimposed pneumonia in the right lung. Chest/Abdomen CTA 06/24/20 21:39 IMPRESSION: 1. No pulmonary embolus. 2. Numerous solid pulmonary nodules, the largest in the left lower lobe measuring 3.1 cm. There is also extensive multilevel mediastinal and hilar lymphadenopathy and questionable lytic lesion of the T7 vertebral body. These findings are compatible with metastatic disease. Unknown primary. 3. Moderate right pleural effusion with right basilar compressive atelectasis. 4. Patchy airspace opacities in the right lung may represent a new bronchial spread of neoplasm or infectious pneumonic process related to bronchial compression by right hilar lymphadenopathy. 5. Coronary artery atherosclerosis. This exam was performed according to our departmental dose-optimization program, which includes automated exposure control, adjustment of the mA and/or kV according to patient size and/or use of iterative reconstruction technique. Status: Image reviewed by me - I have reviewed this patient's chest x-rays as well as CT scan. He has significant bilateral lung nodules accompanied by a significant right pleural effusion. There appears to be narrowing of the right mainstem bronchus and bronchus intermedius. Assessment & Plan - Diagnosis (1) Hilar adenopathy Is this a current diagnosis for this admission?: Yes (2) Multiple lung nodules Is this a current diagnosis for this admission?: Yes (3) Pleural effusion Is this a current diagnosis for this admission?: Yes (4) Pneumonia Qualifiers: Pneumonia type: due to unspecified organism Laterality: right Lung location: unspecified part of lung Qualified Code(s): J18.9 - Pneumonia, unspecified organism Is this a current diagnosis for this admission?: Yes (5) Postobstructive pneumonia Is this a current diagnosis for this admission?: Yes - Plan Summary Plan Summary: This patient presents with an impressive CT scan of his lungs. There are extensive pulmonary nodules, some areas of consolidation, a significant right pleural effusion, and what appears to be some degree of extrinsic compression of the right mainstem bronchus and bronchus intermedius. Dr. León and I have discussed this case over the telephone. I agree with proceeding to thoracentesis on the right to hopefully establish a diagnosis. If this is nondiagnostic would proceed with bronchoscopy. We will follow with you during this hospitalization and proceed with bronchoscopy if his thoracentesis is nondiagnostic.
[2020-06-27] MEDS: ACETAMINOPHEN 325 MG TABLET PO PRN (10:24)
[2020-06-27] MEDS: FAMOTIDINE 20 MG TABLET PO SCH ×2 (10:25→21:49)
[2020-06-27] MEDS: FLUTICASONE NASAL SPRAY 50 MCG/SPRY 120 SPRAY/16 GM NASL SCH ×2 (10:25→21:48)
[2020-06-27] MEDS: ZINC SULFATE 220 MG CAPSULE PO SCH (10:25)
[2020-06-27] MEDS: MORPHINE SULFATE 10 MG/ML INJ IV SCH ×3 (12:11→23:05)
--- NOTE | 2020-06-27 15:00 | RADIOLOGY REPORT (SQ) ---
EXAM DESCRIPTION: CHEST SINGLE VIEW IMAGES COMPLETED DATE/TIME: 06/27/2020 2:51 pm REASON FOR STUDY: Post right thoracentesis COMPARISON: 06/24/2020 EXAM PARAMETERS: NUMBER OF VIEWS: One view. TECHNIQUE: Single frontal radiographic view of the chest acquired. RADIATION DOSE: NA LIMITATIONS: None. FINDINGS: LUNGS AND PLEURA: Extensive right-sided airspace disease. No pneumothorax following thora centesis. MEDIASTINUM AND HILAR STRUCTURES: No masses. Contour normal. HEART AND VASCULAR STRUCTURES: Stable. BONES: No acute findings. HARDWARE: None in the chest. OTHER: No other significant finding. IMPRESSION: No pneumothorax immediately following right-sided thoracentesis. Extensive right-sided airspace disease. TECHNICAL DOCUMENTATION: JOB ID: [id number] 2010 [employer]- All Rights Reserved Reading location - IP/workstation name: [email or web address]
--- NOTE | 2020-06-27 15:39 | RADIOLOGY REPORT (SQ) ---
EXAM DESCRIPTION: U/S THORACENTESIS WITH IMAGING IMAGES COMPLETED DATE/TIME: 06/27/2020 2:57 pm REASON FOR STUDY: fluid in R lung D64.9 ANEMIA, UNSPECIFIED J18.9 PNEUMONIA, UNSPECIFIED ORGANISM D68.9 COAGULATION DEFECT, UNSPECIFIED COMPARISON: CT the chest 06/24/2020 RADIATION DOSE: None LIMITATIONS: None. PROCEDURE: Procedure, risks, benefit, and alternative explained to patient who then gave written con sent. The posterior right chest wall was marked using ultrasound guidance. A time-out was called fo r correct marking verification. Chest prepped and draped using sterile technique. Local anesthesia a chieved using 5 ml of 1% lidocaine injection. A 6fr Safe-T- Centesis set was introduced into the rig ht pleural space. Fluid was aspirated. The catheter was removed and the entry site was covered with sterile bandage. No immediate complications noted. Images acquired during the procedure were stored on PACS. FINDINGS: ENTRY SITE: posterior right chest. FLUID VOLUME: 900 mL FLUID ANALYSIS: Clear straw-colored fluid OTHER: Fluid sent to the lab for testing. IMPRESSION: SUCCESSFUL THORACENTESIS USING ULTRASOUND GUIDANCE. COMMENT: Patient medication list reviewed: Yes- Quality ID# [id number]:Eligible professional attests to doc umenting in the medical record they obtained, updated, or reviewed the patient's current medications. TECHNICAL DOCUMENTATION: JOB ID: [id number] [employer]- All Rights Reserved Reading location - IP/workstation name: [email or web address] [id number]
--- NOTE | 2020-06-27 17:48 | RADIOLOGY REPORT (SQ) ---
EXAM DESCRIPTION: CHEST SINGLE VIEW IMAGES COMPLETED DATE/TIME: 06/27/2020 3:50 pm REASON FOR STUDY: 2 hour Post right thoracentesis COMPARISON: Same date at 1445 hours. CTA chest 06/24/2020. EXAM PARAMETERS: NUMBER OF VIEWS: One view. TECHNIQUE: Single frontal radiographic view of the chest acquired. RADIATION DOSE: NA LIMITATIONS: None. FINDINGS: LUNGS AND PLEURA: Persistent consolidation throughout the right lung with patchy areas of consolidation in the peripheral left lung, stable from prior. No pleural effusion or pneumothorax. MEDIASTINUM AND HILAR STRUCTURES: No masses. Contour normal. HEART AND VASCULAR STRUCTURES: Heart normal in size. Normal vasculature. BONES: No acute findings. HARDWARE: None in the chest. OTHER: No other significant finding. IMPRESSION: Persistent consolidation predominantly in the right lung unchanged from prior. No pneum othorax. TECHNICAL DOCUMENTATION: JOB ID: [id number] 2010 [employer]- All Rights Reserved Reading location - IP/workstation name: [email or web address]
--- NOTE | 2020-06-27 18:18 | PDOC PROGRESS REPORT ---
Subjective Date:: 06/27/20 Subjective:: HENRY OSUNA is a 70 year old male with a history of hypertension comes with 4 days duration of nonproductive cough and shortness of breath with exertion. Patient also reports that he had a fever of 102 at home this morning. He generally feels very weak, has decreased appetite. He states that the shortness of breath has been progressively getting worse and today he even feels short of breath at rest and he has to prop himself up on his bed to sleep. He states that he had leg swelling few weeks back for which Doppler ultrasound was done and there was no DVT but ultrasound done at that time showed an incidental lymphadenopathy in his left groin area and biopsy was done he was told that it was negative for malignancy. Prior to 4 days ago patient states that he was fully functional and denies any weight loss, night sweating, chronic cough, hemoptysis, nausea, vomiting, abdominal pain, constipation, diarrhea or any change in his urinary habits. He states that he had a colonoscopy 2 months back and was told that it was negative for cancer. He is a former smoker but this been many years since he quit smoking. Patient denies any recent sick contact history. 06/25/20 D1 hospital stay. He was seen and examined at bedside. Still coughing quite a lot. On 2L nasal cannula O2 support. Dr. León reviewed his CT chest findings and suggested a few days of abx before pursuing diagnostic work up of lung nodules and pleural effusion. He is currently on ceftri and azithro for Pneumonia. 06/26/20 D2 hospital stay. He was seen and examined at bedside. Not much improvement in terms of breathing status, still coughing a lot despite robitussin and tessalon. I have added morphine as well. Plan for thoracentesis tomorrow. I was able to talk to maxim his daughter and updated her of the plan of treatment. 06/27/20 D3 Hospital stay. He was seen and examined at bedside. Still coughing a lot, still mildly SOB. No fever, fair appetite. He was started on low dose morphine to help with his cough and dyspnea. He is scheduled for thoracentesis today. Dr. Yeh from pulmonology also saw her and recommended bronchoscopy after thoracentesis was nondiagnostic. Reason For Visit: PNEUMONIA,MULTIPLE CHEST NODULES Physical Exam Vital Signs: Temp Pulse Resp BP Pulse Ox 98.9 F 102 H 19 140/80 H 99 06/27/20 11:45 06/27/20 11:45 06/27/20 11:45 06/27/20 11:45 06/27/20 16:00 Pulse Oximeter Continuous Start: 06/25/20 00:36 Freq: RTQ4 Status: Active Protocol: Document 06/27/20 16:00 [facility] (Rec: 06/27/20 16:54 [facility] [id number]) Pulse Oximetry Assessment Oxygen Saturation (92-100) 99 Oxygen Flow Rate (L/min) 3 Oxygen Delivery Method Nasal Cannula Fraction of Inspired Oxygen (FIO2) 32 Equipment Usage Equipment in Use Continuous SpO2 Machine # 4 Intake & Output 06/26/20 06/27/20 06/28/20 06:59 06:59 06:59 Intake Total 2300 1400 480 Output Total 301 Balance 2300 1099 480 Weight 78.1 kg 74.6 kg General appearance: PRESENT: cooperative, mild distress Head exam: PRESENT: atraumatic, normocephalic Eye exam: PRESENT: EOMI, PERRLA Mouth exam: PRESENT: moist Neck exam: PRESENT: full ROM Respiratory exam: PRESENT: decreased breath sounds, rales, symmetrical. ABSENT: wheezes Cardiovascular exam: PRESENT: RRR, +S1, +S2 Pulses: PRESENT: +2 pedal pulses bilateral GI/Abdominal exam: PRESENT: normal bowel sounds, soft. ABSENT: rebound, tenderness Extremities exam: PRESENT: full ROM Musculoskeletal exam: PRESENT: full ROM Neurological exam: PRESENT: alert, awake, oriented to person, oriented to place, oriented to time, oriented to situation Psychiatric exam: PRESENT: normal mood Skin exam: PRESENT: normal color Results Laboratory Results: 06/27/20 04:20 06/27/20 04:20 06/27/20 06/27/20 06/27/20 04:20 04:20 14:25 WBC 4.7 RBC 3.94 L Hgb 10.1 L Hct 30.7 L MCV 78 L MCH 25.5 L MCHC 32.8 RDW 16.2 H Plt Count 204 Seg Neutrophils % 75.4 Sodium 137.1 Potassium 3.8 Chloride 106 Carbon Dioxide 20 L Anion Gap 11 BUN 9 Creatinine 0.67 Est GFR ( Amer) > 60 Glucose 94 Calcium 8.4 Total Bilirubin 0.6 AST 59 Alkaline Phosphatase 266 H Total Protein 5.2 L Cancelled Albumin 2.7 L 06/24/20 19:47 Troponin I < 0.012 NT-Pro-B Natriuret Pep 327 H Impressions: Chest/Abdomen CTA 06/24/20 21:39 IMPRESSION: 1. No pulmonary embolus. 2. Numerous solid pulmonary nodules, the largest in the left lower lobe measuring 3.1 cm. There is also extensive multilevel mediastinal and hilar lymphadenopathy and questionable lytic lesion of the T7 vertebral body. These findings are compatible with metastatic disease. Unknown primary. 3. Moderate right pleural effusion with right basilar compressive atelectasis. 4. Patchy airspace opacities in the right lung may represent a new bronchial spread of neoplasm or infectious pneumonic process related to bronchial compression by right hilar lymphadenopathy. 5. Coronary artery atherosclerosis. This exam was performed according to our departmental dose-optimization program, which includes automated exposure control, adjustment of the mA and/or kV according to patient size and/or use of iterative reconstruction technique. Thoracentesis Ultrasound 06/27/20 00:00 IMPRESSION: SUCCESSFUL THORACENTESIS USING ULTRASOUND GUIDANCE. Chest X-Ray 06/27/20 16:37 IMPRESSION: Persistent consolidation predominantly in the right lung unchanged from prior. No pneumothorax. Assessment and Plan - Diagnosis (1) Pneumonia Qualifiers: Pneumonia type: due to unspecified organism Laterality: right Lung location: unspecified part of lung Qualified Code(s): J18.9 - Pneumonia, unspecified organism Is this a current diagnosis for this admission?: Yes Plan: -Came in due to cough and SOB - CT chest patchy airspace opacities in the right lung, multiple lung nodules largest measuring 3.1 cm left lower lobe - post obstructive pneumonia fr malignancy or CAP or COVID -Blood culture no growth x 2 -Covid test NEGATIVE -On ceftriaxone and azithromycin for community-acquired pneumonia -Oncology following -Pulmonology following. Plan for Bronch if thoracentesis is non diagnostic (2) Multiple lung nodules Is this a current diagnosis for this admission?: Yes Plan: -Patient denies chronic cough or constitutional symptoms beyond 4 days, former smoker -CT chest was significant for numerous solid pulmonary nodules with the largest being 3.1 cm in the left lower lobe with extensive multilevel mediastinal lymphadenopathy and lytic lesion on T7 vertebra -Patient reports that he had biopsy of lymph node at left inguinal area which was negative -Recent colonoscopy was negative for malignancy -Status post thoracentesis today drained 900 mL of clear straw-colored fluid. Fluid sent for analysis cultures and cytology (3) Pleural effusion Is this a current diagnosis for this admission?: Yes Plan: -Moderate-sized right pleural effusion highly suspicious for malignant pleural effusion given multiple lung nodules -Status post thoracentesis - will send for cytology, culture, albumin, protein, glucose, AFB (4) Suspected COVID-19 virus infection Is this a current diagnosis for this admission?: Yes Plan: COVID negative Continue supportive care with O2 supplement to keep saturation above 94% Tylenol as needed for fever (5) Hypertension Is this a current diagnosis for this admission?: Yes Plan: We will hold blood pressure medications for now due to volume depletion (6) Microcytic anemia Is this a current diagnosis for this admission?: Yes Plan: -Microcytic hypochromic anemia -iron studies showing consistent with MIRIAM - last colonoscopy no cocern for bleeding or cancerous polyps - 1 dose of venofer - will continue to monitor - Time Time Spent with patient: 25-34 minutes Medications reviewed and adjusted accordingly: Yes Anticipated Discharge Disposition: Home, Self Care Anticipated Discharge Timeframe: to be determined
[2020-06-27] MEDS: AZITHROMYCIN 500 MG in DEXTROSE 5%-WATER 250 ML IV SCH (21:48)
[2020-06-27] MEDS: CEFTRIAXONE 1 GM/D5W RTU 1 GM/50 ML RTUPB IV SCH (21:49)
[2020-06-27] MEDS: NORMAL SALINE 1000 ML 1,000 ML IV PRN (21:50)
[2020-06-28] MEDS: MORPHINE SULFATE 10 MG/ML INJ IV SCH (05:26)
[2020-06-28] MEDS: BENZONATATE 100 MG CAPSULE PO SCH ×3 (05:26→21:42)
[2020-06-28 07:22] LABS: ABSOLUTE EOSINOPHILS # (AUTO) 0.1 10^3/uL (0.0-0.6); ABSOLUTE LYMPHOCYTES (AUTO) 0.5 10^3/uL (0.5-4.7); ABSOLUTE MONOCYTES (AUTO) 0.7 10^3/uL (0.1-1.4); ABSOLUTE NEUT (AUTO) 3.8 10^3/uL (1.7-8.2); BASOPHILS % (AUTO) 0.4 % (0-2); EOSINOPHILS % (AUTO) 2.6 % (0-6); HEMATOCRIT 29.3 % (37.9-51.0); HEMOGLOBIN 9.6 g/dL (13.5-17.0); LYMPHOCYTES % (AUTO) 9.5 % (13-45); MEAN CORPUSCULAR HEMOGLOBIN 25.7 pg (27.0-33.4); MEAN CORPUSCULAR HGB CONC 32.8 g/dL (32.0-36.0); MEAN CORPUSCULAR VOLUME 78 fl (80-97); MONOCYTES % (AUTO) 13.4 % (3-13); PLATELET COUNT 222 10^3/uL (150-450); RED BLOOD COUNT 3.74 10^6/uL (4.35-5.55); RED CELL DISTRIBUTION WIDTH 16.2 % (11.5-14.0); SEGMENTED NEUTROPHILS % (AUTO) 74.1 % (42-78); TOTAL CELLS COUNTED % (AUTO) 100 %; WHITE BLOOD COUNT 5.2 10^3/uL (4.0-10.5)
[2020-06-28 07:47] LABS: ALBUMIN 2.6 g/dL (3.5-5.0); ALKALINE PHOSPHATASE 278 U/L (38-126); ANION GAP 10 (5-19); ASPARTATE AMINO TRANSFERASE 74 U/L (17-59); BILIRUBIN,DIRECT 0.2 mg/dL (0.0-0.4); BILIRUBIN,TOTAL 0.5 mg/dL (0.2-1.3); BLOOD UREA NITROGEN 8 mg/dL (7-20); CALCIUM 8.4 mg/dL (8.4-10.2); CARBON DIOXIDE 22 mmol/L (22-30); CHLORIDE 103 mmol/L (98-107); GLUCOSE 111 mg/dL (75-110); POTASSIUM 3.6 mmol/L (3.6-5.0)
[2020-06-28] MEDS ORDERED: PANTOPRAZOLE SODIUM 40 MG VIAL IV ONE (08:17)
[2020-06-28] MEDS: ACETAMINOPHEN 325 MG TABLET PO PRN ×2 (09:00→15:49)
[2020-06-28] MEDS: ZINC SULFATE 220 MG CAPSULE PO SCH (09:01)
[2020-06-28] MEDS: FAMOTIDINE 20 MG TABLET PO SCH ×2 (09:01→21:42)
[2020-06-28] MEDS: FLUTICASONE NASAL SPRAY 50 MCG/SPRY 120 SPRAY/16 GM NASL SCH ×2 (09:02→21:42)
--- NOTE | 2020-06-28 14:20 | PDOC PROGRESS REPORT ---
Subjective Date:: 06/28/20 Subjective:: Patient feeling slightly better after thoracentesis but not much better. Still short of breath and coughing. Spoke with lab today, unfortunately over the weekend we do not have either cytology techs or pathology, so it will only be accessioned on Tuesday to see if there is cells that are diagnostic. Reason For Visit: PNEUMONIA,MULTIPLE CHEST NODULES Physical Exam Vital Signs: Temp Pulse Resp BP Pulse Ox 98.3 F 101 H 20 139/66 H 93 06/28/20 11:45 06/28/20 11:45 06/28/20 11:45 06/28/20 11:45 06/28/20 11:45 Pulse Oximeter Continuous Start: 06/25/20 00:36 Freq: RTQ4 Status: Active Protocol: Document 06/28/20 10:01 [facility] (Rec: 06/28/20 10:36 [facility] [id number]) Pulse Oximetry Assessment Oxygen Saturation (92-100) 98 Oxygen Flow Rate (L/min) 2 Oxygen Delivery Method Nasal Cannula Fraction of Inspired Oxygen (FIO2) 28 Equipment Usage Equipment in Use Continuous Pulse Oximeter 24 Hour Charge Charge Now Continuous SpO2 Machine # 4 Intake & Output 06/27/20 06/28/20 06/29/20 06:59 06:59 06:59 Intake Total 1400 1030 300 Output Total 301 Balance 1099 1030 300 Weight 74.6 kg 74.7 kg General appearance: PRESENT: no acute distress, well-developed, well-nourished Head exam: PRESENT: atraumatic, normocephalic Eye exam: PRESENT: conjunctiva pink, EOMI, PERRLA. ABSENT: scleral icterus Ear exam: PRESENT: normal external ear exam Mouth exam: PRESENT: moist, tongue midline Neck exam: ABSENT: carotid bruit, JVD, lymphadenopathy, thyromegaly Respiratory exam: PRESENT: clear to auscultation kayce. ABSENT: rales, rhonchi, wheezes Cardiovascular exam: PRESENT: RRR. ABSENT: diastolic murmur, rubs, systolic mu rmur Pulses: PRESENT: normal dorsalis pedis pul Vascular exam: PRESENT: normal capillary refill GI/Abdominal exam: PRESENT: normal bowel sounds, soft. ABSENT: distended, guarding, mass, organolmegaly, rebound, tenderness Rectal exam: PRESENT: deferred Extremities exam: PRESENT: full ROM. ABSENT: calf tenderness, clubbing, pedal edema Neurological exam: PRESENT: alert, awake, oriented to person, oriented to place, oriented to time, oriented to situation, CN II-XII grossly intact. ABSENT: motor sensory deficit Psychiatric exam: PRESENT: appropriate affect, normal mood. ABSENT: homicidal ideation, suicidal ideation Skin exam: PRESENT: dry, intact, warm. ABSENT: cyanosis, rash Results Laboratory Results: 06/28/20 06:20 06/28/20 06:20 06/27/20 06/28/20 06/28/20 14:25 06:20 06:20 WBC 5.2 RBC 3.74 L Hgb 9.6 L Hct 29.3 L MCV 78 L MCH 25.7 L MCHC 32.8 RDW 16.2 H Plt Count 222 Seg Neutrophils % 74.1 Sodium 135.3 L Potassium 3.6 Chloride 103 Carbon Dioxide 22 Anion Gap 10 BUN 8 Creatinine 0.65 Est GFR ( Amer) > 60 Glucose 111 H Calcium 8.4 Total Bilirubin 0.5 AST 74 H Alkaline Phosphatase 278 H Total Protein Cancelled 5.0 L Albumin 2.6 L 06/24/20 19:47 Troponin I < 0.012 NT-Pro-B Natriuret Pep 327 H Impressions: Chest/Abdomen CTA 06/24/20 21:39 IMPRESSION: 1. No pulmonary embolus. 2. Numerous solid pulmonary nodules, the largest in the left lower lobe measuring 3.1 cm. There is also extensive multilevel mediastinal and hilar lymphadenopathy and questionable lytic lesion of the T7 vertebral body. These findings are compatible with metastatic disease. Unknown primary. 3. Moderate right pleural effusion with right basilar compressive atelectasis. 4. Patchy airspace opacities in the right lung may represent a new bronchial spread of neoplasm or infectious pneumonic process related to bronchial compression by right hilar lymphadenopathy. 5. Coronary artery atherosclerosis. This exam was performed according to our departmental dose-optimization program, which includes automated exposure control, adjustment of the mA and/or kV according to patient size and/or use of iterative reconstruction technique. Thoracentesis Ultrasound 06/27/20 00:00 IMPRESSION: SUCCESSFUL THORACENTESIS USING ULTRASOUND GUIDANCE. Chest X-Ray 06/27/20 16:37 IMPRESSION: Persistent consolidation predominantly in the right lung unchanged from prior. No pneumothorax. Assessment & Plan - Diagnosis (1) Multiple lung nodules Is this a current diagnosis for this admission?: Yes Plan: Awaiting cytology but it is likely the patient will ultimately need bronch oscopy. Discussed with Dr. Veras who will be performing the procedure on Tuesday, placed order for n.p.o. after midnight on Tuesday, hold Lovenox Tuesday. Of note, patient will probably need home O2. (2) Pleural effusion Is this a current diagnosis for this admission?: Yes Plan: Awaiting cytology, plan as above. - Time Time Spent with patient: 35 or more minutes
[2020-06-28] MEDS: GUAIFENESIN/D-METHORPHAN (200-20 MG) SYRUP 10 ML PO PRN (15:22)
--- NOTE | 2020-06-28 16:50 | PDOC PROGRESS REPORT ---
Subjective Date:: 06/28/20 Subjective:: HENRY OSUNA is a 70 year old male with a history of hypertension comes with 4 days duration of nonproductive cough and shortness of breath with exertion. Patient also reports that he had a fever of 102 at home this morning. He generally feels very weak, has decreased appetite. He states that the shortness of breath has been progressively getting worse and today he even feels short of breath at rest and he has to prop himself up on his bed to sleep. He states that he had leg swelling few weeks back for which Doppler ultrasound was done and there was no DVT but ultrasound done at that time showed an incidental lymphadenopathy in his left groin area and biopsy was done he was told that it was negative for malignancy. Prior to 4 days ago patient states that he was fully functional and denies any weight loss, night sweating, chronic cough, hemoptysis, nausea, vomiting, abdominal pain, constipation, diarrhea or any change in his urinary habits. He states that he had a colonoscopy 2 months back and was told that it was negative for cancer. He is a former smoker but this been many years since he quit smoking. Patient denies any recent sick contact history. 06/25/20 D1 hospital stay. He was seen and examined at bedside. Still coughing quite a lot. On 2L nasal cannula O2 support. Dr. León reviewed his CT chest findings and suggested a few days of abx before pursuing diagnostic work up of lung nodules and pleural effusion. He is currently on ceftri and azithro for Pneumonia. 06/26/20 D2 hospital stay. He was seen and examined at bedside. Not much improvement in terms of breathing status, still coughing a lot despite robitussin and tessalon. I have added morphine as well. Plan for thoracentesis tomorrow. I was able to talk to maxim his daughter and updated her of the plan of treatment. 06/27/20 D3 Hospital stay. He was seen and examined at bedside. Still coughing a lot, still mildly SOB. No fever, fair appetite. He was started on low dose morphine to help with his cough and dyspnea. He is scheduled for thoracentesis today. Dr. Yeh from pulmonology also saw her and recommended bronchoscopy after thoracentesis was nondiagnostic. 06/28/20 D4 Hospital stay. He was seen and examined at bedside. He reports that he feels slightly better today than he did yesterday but not by a whole lot. Cough is still about the same but morphine helps according to him. I have spoken to Dr. León and according to him he would still need a bronch which will likely happen on tuesday. Reason For Visit: PNEUMONIA,MULTIPLE CHEST NODULES Physical Exam Vital Signs: Temp Pulse Resp BP Pulse Ox 98.3 F 101 H 20 139/66 H 94 06/28/20 11:45 06/28/20 11:45 06/28/20 11:45 06/28/20 11:45 06/28/20 12:00 Pulse Oximeter Continuous Start: 06/25/20 00:36 Freq: RTQ4 Status: Active Protocol: Document 06/28/20 12:00 [facility] (Rec: 06/28/20 14:17 [facility] [id number]) Pulse Oximetry Assessment Oxygen Saturation (92-100) 94 Oxygen Flow Rate (L/min) 2 Oxygen Delivery Method Nasal Cannula Fraction of Inspired Oxygen (FIO2) 28 Equipment Usage Equipment in Use Continuous SpO2 Machine # 4 Intake & Output 06/27/20 06/28/20 06/29/20 06:59 06:59 06:59 Intake Total 1400 1030 300 Output Total 301 Balance 1099 1030 300 Weight 74.6 kg 74.7 kg General appearance: PRESENT: cooperative, mild distress Head exam: PRESENT: atraumatic Eye exam: PRESENT: EOMI, PERRLA Mouth exam: PRESENT: moist Neck exam: PRESENT: full ROM Respiratory exam: PRESENT: clear to auscultation kayce, symmetrical, unlabored Cardiovascular exam: PRESENT: RRR, +S1, +S2 Pulses: PRESENT: +2 pedal pulses bilateral GI/Abdominal exam: PRESENT: normal bowel sounds, soft. ABSENT: rebound, tenderness Extremities exam: PRESENT: full ROM Musculoskeletal exam: PRESENT: full ROM Neurological exam: PRESENT: alert, awake, oriented to person, oriented to place, oriented to time, oriented to situation Psychiatric exam: PRESENT: normal mood Skin exam: PRESENT: normal color Results Laboratory Results: 06/28/20 06:20 06/28/20 06:20 06/28/20 06/28/20 06:20 06:20 WBC 5.2 RBC 3.74 L Hgb 9.6 L Hct 29.3 L MCV 78 L MCH 25.7 L MCHC 32.8 RDW 16.2 H Plt Count 222 Seg Neutrophils % 74.1 Sodium 135.3 L Potassium 3.6 Chloride 103 Carbon Dioxide 22 Anion Gap 10 BUN 8 Creatinine 0.65 Est GFR ( Amer) > 60 Glucose 111 H Calcium 8.4 Total Bilirubin 0.5 AST 74 H Alkaline Phosphatase 278 H Total Protein 5.0 L Albumin 2.6 L 06/24/20 19:47 Troponin I < 0.012 NT-Pro-B Natriuret Pep 327 H Impressions: Chest/Abdomen CTA 06/24/20 21:39 IMPRESSION: 1. No pulmonary embolus. 2. Numerous solid pulmonary nodules, the largest in the left lower lobe measuring 3.1 cm. There is also extensive multilevel mediastinal and hilar lymphadenopathy and questionable lytic lesion of the T7 vertebral body. These findings are compatible with metastatic disease. Unknown primary. 3. Moderate right pleural effusion with right basilar compressive atelectasis. 4. Patchy airspace opacities in the right lung may represent a new bronchial spread of neoplasm or infectious pneumonic process related to bronchial compression by right hilar lymphadenopathy. 5. Coronary artery atherosclerosis. This exam was performed according to our departmental dose-optimization program, which includes automated exposure control, adjustment of the mA and/or kV according to patient size and/or use of iterative reconstruction technique. Thoracentesis Ultrasound 06/27/20 00:00 IMPRESSION: SUCCESSFUL THORACENTESIS USING ULTRASOUND GUIDANCE. Chest X-Ray 06/27/20 16:37 IMPRESSION: Persistent consolidation predominantly in the right lung unchanged from prior. No pneumothorax. Assessment and Plan - Diagnosis (1) Pneumonia Qualifiers: Pneumonia type: due to unspecified organism Laterality: right Lung l ocation: unspecified part of lung Qualified Code(s): J18.9 - Pneumonia, unspecified organism Is this a current diagnosis for this admission?: Yes Plan: -Came in due to cough and SOB - CT chest patchy airspace opacities in the right lung, multiple lung nodules largest measuring 3.1 cm left lower lobe - post obstructive pneumonia fr malignancy or CAP -Blood culture no growth x 2 -Covid test NEGATIVE -On ceftriaxone and azithromycin for community-acquired pneumonia -Oncology following -Pulmonology following. Plan for Bronch on tuesday (2) Multiple lung nodules Is this a current diagnosis for this admission?: Yes Plan: -Patient denies chronic cough or constitutional symptoms beyond 4 days, former smoker -CT chest was significant for numerous solid pulmonary nodules with the largest being 3.1 cm in the left lower lobe with extensive multilevel mediastinal lymphadenopathy and lytic lesion on T7 vertebra -Patient reports that he had biopsy of lymph node at left inguinal area which was negative -Recent colonoscopy was negative for malignancy -Status post thoracentesis today drained 900 mL of clear straw-colored fluid. Fluid sent for analysis cultures and cytology (3) Pleural effusion Is this a current diagnosis for this admission?: Yes Plan: -Moderate-sized right pleural effusion highly suspicious for malignant pleural effusion given multiple lung nodules -Status post thoracentesis - awaiting cytology, culture, albumin, protein, glucose, AFB (4) Suspected COVID-19 virus infection Is this a current diagnosis for this admission?: Yes Plan: COVID negative Continue supportive care with O2 supplement to keep saturation above 94% Tylenol as needed for fever (5) Hypertension Is this a current diagnosis for this admission?: Yes Plan: We will hold blood pressure medications for now due to volume depletion (6) Microcytic anemia Is this a current diagnosis for this admission?: Yes Plan: -Microcytic hypochromic anemia -iron studies showing consistent with MIRIAM - last colonoscopy no cocern for bleeding or cancerous polyps - 1 dose of venofer - will continue to monitor (7) Cough in adult Is this a current diagnosis for this admission?: Yes Plan: - very bothersome for the patient - likely from his Pneumonia and or suspected lung malignancy - teschichoon and amilcarsin does not help - I have started him on low dose morphine - Time Time Spent with patient: 25-34 minutes Medications reviewed and adjusted accordingly: Yes Anticipated Discharge Disposition: Home, Self Care Anticipated Discharge Timeframe: to be determined
[2020-06-28] MEDS ORDERED: IBUPROFEN 400 MG TABLET PO PRN (20:41)
[2020-06-28] MEDS: IPRATROPIUM/ALBUTEROL 0.5-2.5 MG/3 ML AMPUL NEB PRN (21:01)
[2020-06-28] MEDS: CEFTRIAXONE 1 GM/D5W RTU 1 GM/50 ML RTUPB IV SCH (21:41)
[2020-06-28] MEDS: AZITHROMYCIN 500 MG in DEXTROSE 5%-WATER 250 ML IV SCH (21:42)
[2020-06-29 04:50] LABS: ABSOLUTE EOSINOPHILS # (AUTO) 0.2 10^3/uL (0.0-0.6); ABSOLUTE LYMPHOCYTES (AUTO) 0.3 10^3/uL (0.5-4.7); ABSOLUTE MONOCYTES (AUTO) 0.4 10^3/uL (0.1-1.4); ABSOLUTE NEUT (AUTO) 3.4 10^3/uL (1.7-8.2); BASOPHILS % (AUTO) 0.6 % (0-2); EOSINOPHILS % (AUTO) 4.1 % (0-6); HEMOGLOBIN 9.9 g/dL (13.5-17.0); LYMPHOCYTES % (AUTO) 6.6 % (13-45); MEAN CORPUSCULAR HEMOGLOBIN 25.5 pg (27.0-33.4); MEAN CORPUSCULAR VOLUME 78 fl (80-97); MONOCYTES % (AUTO) 8.5 % (3-13); PLATELET COUNT 224 10^3/uL (150-450); RED BLOOD COUNT 3.87 10^6/uL (4.35-5.55); RED CELL DISTRIBUTION WIDTH 16.3 % (11.5-14.0); SEGMENTED NEUTROPHILS % (AUTO) 80.2 % (42-78); TOTAL CELLS COUNTED % (AUTO) 100 %; WHITE BLOOD COUNT 4.3 10^3/uL (4.0-10.5)
[2020-06-29 05:02] LABS: ALBUMIN 2.6 g/dL (3.5-5.0); ALKALINE PHOSPHATASE 408 U/L (38-126); ANION GAP 9 (5-19); ASPARTATE AMINO TRANSFERASE 125 U/L (17-59); BILIRUBIN,DIRECT 0.2 mg/dL (0.0-0.4); BILIRUBIN,TOTAL 0.4 mg/dL (0.2-1.3); BLOOD UREA NITROGEN 10 mg/dL (7-20); CALCIUM 8.4 mg/dL (8.4-10.2); CARBON DIOXIDE 24 mmol/L (22-30); CHLORIDE 105 mmol/L (98-107); GLUCOSE 114 mg/dL (75-110); POTASSIUM 3.3 mmol/L (3.6-5.0); TOTAL PROTEIN 4.9 g/dL (6.3-8.2)
[2020-06-29] MEDS: BENZONATATE 100 MG CAPSULE PO SCH ×3 (06:37→21:56)
[2020-06-29] MEDS: GUAIFENESIN/D-METHORPHAN (200-20 MG) SYRUP 10 ML PO PRN (06:40)
[2020-06-29] MEDS ORDERED: POTASSIUM CHLORIDE 10 MEQ TABLET.ER PO ONE (06:41)
[2020-06-29] MEDS ORDERED: MORPHINE SULFATE 10 MG/ML INJ ONE (08:30)
[2020-06-29] MEDS: IPRATROPIUM/ALBUTEROL 0.5-2.5 MG/3 ML AMPUL NEB PRN ×2 (08:54→16:17)
[2020-06-29] MEDS ORDERED: MORPHINE SULFATE 10 MG/ML INJ IV ONE (11:00)
[2020-06-29] MEDS: FAMOTIDINE 20 MG TABLET PO SCH ×2 (11:30→21:55)
[2020-06-29] MEDS: ZINC SULFATE 220 MG CAPSULE PO SCH (11:30)
[2020-06-29] MEDS: FLUTICASONE NASAL SPRAY 50 MCG/SPRY 120 SPRAY/16 GM NASL SCH ×2 (11:31→21:55)
[2020-06-29] MEDS ORDERED: MORPHINE SULFATE 10 MG/ML INJ IV PRN (12:17)
[2020-06-29] MEDS ORDERED: VALACYCLOVIR HCL 500 MG PO SCH (14:00)
[2020-06-29 15:58] LABS: ALBUMIN BODY FLUID 2.4 g/dL (Not Estab.)
[2020-06-29] MEDS: AMLODIPINE BESYLATE 5 MG TABLET PO SCH (16:50)
[2020-06-29] MEDS: VALACYCLOVIR HCL 500 MG TABLET PO SCH (16:51)
[2020-06-29] MEDS: CYCLOSPORINE 0.05% OPH EMULSIO 0.4 ML DROPERETTE OU SCH (18:29)
--- NOTE | 2020-06-29 21:12 | PDOC PROGRESS REPORT ---
Subjective Date:: 06/29/20 Subjective:: HENRY OSUNA is a 70 year old male with a history of hypertension comes with 4 days duration of nonproductive cough and shortness of breath with exertion. Patient also reports that he had a fever of 102 at home this morning. He generally feels very weak, has decreased appetite. He states that the shortness of breath has been progressively getting worse and today he even feels short of breath at rest and he has to prop himself up on his bed to sleep. He states that he had leg swelling few weeks back for which Doppler ultrasound was done and there was no DVT but ultrasound done at that time showed an incidental lymphadenopathy in his left groin area and biopsy was done he was told that it was negative for malignancy. Prior to 4 days ago patient states that he was fully functional and denies any weight loss, night sweating, chronic cough, hemoptysis, nausea, vomiting, abdominal pain, constipation, diarrhea or any change in his urinary habits. He states that he had a colonoscopy 2 months back and was told that it was negative for cancer. He is a former smoker but this been many years since he quit smoking. Patient denies any recent sick contact history. 06/25/20 D1 hospital stay. He was seen and examined at bedside. Still coughing quite a lot. On 2L nasal cannula O2 support. Dr. León reviewed his CT chest findings and suggested a few days of abx before pursuing diagnostic work up of lung nodules and pleural effusion. He is currently on ceftri and azithro for Pneumonia. 06/26/20 D2 hospital stay. He was seen and examined at bedside. Not much improvement in terms of breathing status, still coughing a lot despite robitussin and tessalon. I have added morphine as well. Plan for thoracentesis tomorrow. I was able to talk to maxim his daughter and updated her of the plan of treatment. 06/27/20 D3 Hospital stay. He was seen and examined at bedside. Still coughing a lot, still mildly SOB. No fever, fair appetite. He was started on low dose morphine to help with his cough and dyspnea. He is scheduled for thoracentesis today. Dr. Yeh from pulmonology also saw her and recommended bronchoscopy after thoracentesis was nondiagnostic. 06/28/20 D4 Hospital stay. He was seen and examined at bedside. He reports that he feels slightly better today than he did yesterday but not by a whole lot. Cough is still about the same but morphine helps according to him. I have spoken to Dr. León and according to him he would still need a bronch which will likely happen on tuesday. [facility] He was seen and examined at bedside. Cough is still bothersome but is much better compared to when he came in. Awaiting results of his thoracentesis. He is scheduled for a bronchoscopy by Dr. Plunkett tomorrow morning, n.p.o. orders in. Appetite fair, denies fever, chest pain, palpitations. Able to have a bowel movement Reason For Visit: PNEUMONIA,MULTIPLE CHEST NODULES Physical Exam Vital Signs: Temp Pulse Resp BP Pulse Ox 99.5 F 116 H 22 H 159/66 H 91 L 06/29/20 19:39 06/29/20 19:39 06/29/20 19:39 06/29/20 19:39 06/29/20 20:11 Pulse Oximeter Continuous Start: 06/25/20 00: 36 Freq: RTQ4 Status: Active Protocol: Document 06/29/20 20:11 [facility] (Rec: 06/29/20 20:14 [facility] [id number]) Pulse Oximetry Assessment Oxygen Saturation (92-100) 91 Oxygen Delivery Method Room Air Fraction of Inspired Oxygen (FIO2) 21 Equipment Usage Equipment in Use Continuous SpO2 Machine # 4 Intake & Output 06/28/20 06/29/20 06/30/20 06:59 06:59 06:59 Intake Total 1030 1031 801 Balance 1030 1031 801 Weight 74.7 kg 75.9 kg General appearance: PRESENT: cooperative, mild distress Head exam: PRESENT: atraumatic, normocephalic Eye exam: PRESENT: EOMI, PERRLA Ear exam: PRESENT: normal external ear exam Mouth exam: PRESENT: moist Neck exam: PRESENT: full ROM Respiratory exam: PRESENT: decreased breath sounds, symmetrical, unlabored Cardiovascular exam: PRESENT: RRR, +S1, +S2 Vascular exam: PRESENT: normal capillary refill GI/Abdominal exam: PRESENT: distended, normal bowel sounds, soft Extremities exam: PRESENT: full ROM Musculoskeletal exam: PRESENT: full ROM Neurological exam: PRESENT: alert, awake, oriented to person, oriented to place, oriented to time, oriented to situation Skin exam: PRESENT: normal color Results Laboratory Results: 06/29/20 04:21 06/29/20 04:21 06/27/20 06/27/20 06/29/20 14:25 14:25 04:21 WBC 4.3 RBC 3.87 L Hgb 9.9 L Hct 30.0 L MCV 78 L MCH 25.5 L MCHC 33.0 RDW 16.3 H Plt Count 224 Seg Neutrophils % 80.2 H Sodium Potassium Chloride Carbon Dioxide Anion Gap BUN Creatinine Est GFR ( Amer) Glucose Calcium Total Bilirubin AST Alkaline Phosphatase Total Protein Albumin Fluid Glucose 108 Fluid Total Protein 3.6 Fluid Albumin 2.4 Fluid LDH 254 06/29/20 04:21 WBC RBC Hgb Hct MCV MCH MCHC RDW Plt Count Seg Neutrophils % Sodium 138.2 Potassium 3.3 L Chloride 105 Carbon Dioxide 24 Anion Gap 9 BUN 10 Creatinine 0.69 Est GFR ( Amer) > 60 Glucose 114 H Calcium 8.4 Total Bilirubin 0.4 AST 125 H Alkaline Phosphatase 408 H Total Protein 4.9 L Albumin 2.6 L Fluid Glucose Fluid Total Protein Fluid Albumin Fluid LDH 06/24/20 19:47 Troponin I < 0.012 NT-Pro-B Natriuret Pep 327 H Impressions: Chest/Abdomen CTA 06/24/20 21:39 IMPRESSION: 1. No pulmonary embolus. 2. Numerous solid pulmonary nodules, the largest in the left lower lobe measuring 3.1 cm. There is also extensive multilevel mediastinal and hilar lymphadenopathy and questionable lytic lesion of the T7 vertebral body. These findings are compatible with metastatic disease. Unknown primary. 3. Moderate right pleural effusion with right basilar compressive atelectasis. 4. Patchy airspace opacities in the right lung may represent a new bronchial spread of neoplasm or infectious pneumonic process related to bronchial compression by right hilar lymphadenopathy. 5. Coronary artery atherosclerosis. This exam was performed according to our departmental dose-optimization program, which includes automated exposure control, adjustment of the mA and/or kV according to patient size and/or use of iterative reconstruction technique. Thoracentesis Ultrasound 06/27/20 00:00 IMPRESSION: SUCCESSFUL THORACENTESIS USING ULTRASOUND GUIDANCE. Chest X-Ray 06/27/20 16:37 IMPRESSION: Persistent consolidation predominantly in the right lung unchanged from prior. No pneumothorax. Assessment and Plan - Diagnosis (1) Pneumonia Qualifiers: Pneumonia type: due to unspecified organism Laterality: right Lung location: unspecified part of lung Qualified Code(s): J18.9 - Pneumonia, unspecified organism Is this a current diagnosis for this admission?: Yes Plan: -Came in due to cough and SOB - CT chest patchy airspace opacities in the right lung, multiple lung nodules largest measuring 3.1 cm left lower lobe - post obstructive pneumonia fr malignancy or CAP -Blood culture no growth x 2 -Covid test NEGATIVE - s/p thoracentesis awaiting result -On ceftriaxone and azithromycin for community-acquired pneumonia -Oncology following -Pulmonology following. Plan for Bronch on tuesday (2) Multiple lung nodules Is this a current diagnosis for this admission?: Yes Plan: -Patient denies chronic cough or constitutional symptoms beyond 4 days, former smoker -CT chest was significant for numerous solid pulmonary nodules with the largest being 3.1 cm in the left lower lobe with extensive multilevel mediastinal lymphadenopathy and lytic lesion on T7 vertebra -Patient reports that he had biopsy of lymph node at left inguinal area which was negative -Recent colonoscopy was negative for malignancy -Status post thoracentesis today drained 900 mL of clear straw-colored fluid. Fluid sent for analysis cultures and cytology - awaiting result (3) Pleural effusion Is this a current diagnosis for this admission?: Yes Plan: -Moderate-sized right pleural effusion highly suspicious for malignant pleural effusion given multiple lung nodules -Status post thoracentesis - lights criteria EXUDATIVE pleural effusion - awaiting cytology, culture, AFB (4) Suspected COVID-19 virus infection Is this a current diagnosis for this admission?: Yes Plan: COVID negative Continue supportive care with O2 supplement to keep saturation above 94% Tylenol as needed for fever (5) Hypertension Is this a current diagnosis for this admission?: Yes Plan: - resumed home meds (6) Microcytic anemia Is this a current diagnosis for this admission?: Yes Plan: -Microcytic hypochromic anemia -iron studies showing consistent with MIRIAM - last colonoscopy no cocern for bleeding or cancerous polyps - 1 dose of venofer - will continue to monitor (7) Cough in adult Is this a current diagnosis for this admission?: Yes Plan: - very bothersome for the patient - likely from his Pneumonia and or suspected lung malignancy - tessalon and amilcarsin does not help - I have started him on low dose morphine - Time Time Spent with patient: 25-34 minutes Medications reviewed and adjusted accordingly: Yes Anticipated Discharge Disposition: Home with Home Health Anticipated Discharge Timeframe: to be determined
[2020-06-29] MEDS: CEFTRIAXONE 1 GM/D5W RTU 1 GM/50 ML RTUPB IV SCH (21:55)
[2020-06-29] MEDS: AZITHROMYCIN 500 MG in DEXTROSE 5%-WATER 250 ML IV SCH (21:55)
[2020-06-30] MEDS: IPRATROPIUM/ALBUTEROL 0.5-2.5 MG/3 ML AMPUL NEB PRN ×2 (01:15→21:21)
[2020-06-30] MEDS: BENZONATATE 100 MG CAPSULE PO SCH ×2 (06:42→16:33)
[2020-06-30 06:51] LABS: ABSOLUTE EOSINOPHILS # (AUTO) 0.1 10^3/uL (0.0-0.6); ABSOLUTE LYMPHOCYTES (AUTO) 0.3 10^3/uL (0.5-4.7); ABSOLUTE MONOCYTES (AUTO) 0.6 10^3/uL (0.1-1.4); ABSOLUTE NEUT (AUTO) 4.8 10^3/uL (1.7-8.2); BASOPHILS % (AUTO) 0.4 % (0-2); EOSINOPHILS % (AUTO) 2.2 % (0-6); HEMATOCRIT 30.8 % (37.9-51.0); HEMOGLOBIN 10.2 g/dL (13.5-17.0); LYMPHOCYTES % (AUTO) 5.4 % (13-45); MEAN CORPUSCULAR HEMOGLOBIN 25.7 pg (27.0-33.4); MEAN CORPUSCULAR HGB CONC 33.2 g/dL (32.0-36.0); MEAN CORPUSCULAR VOLUME 78 fl (80-97); MONOCYTES % (AUTO) 10.7 % (3-13); PLATELET COUNT 251 10^3/uL (150-450); RED BLOOD COUNT 3.98 10^6/uL (4.35-5.55); RED CELL DISTRIBUTION WIDTH 16.4 % (11.5-14.0); SEGMENTED NEUTROPHILS % (AUTO) 81.3 % (42-78); TOTAL CELLS COUNTED % (AUTO) 100 %; WHITE BLOOD COUNT 5.9 10^3/uL (4.0-10.5)
[2020-06-30 06:58] LABS: ALBUMIN 2.8 g/dL (3.5-5.0); ALKALINE PHOSPHATASE 476 U/L (38-126); ANION GAP 8 (5-19); ASPARTATE AMINO TRANSFERASE 106 U/L (17-59); BILIRUBIN,DIRECT 0.3 mg/dL (0.0-0.4); BILIRUBIN,TOTAL 0.5 mg/dL (0.2-1.3); BLOOD UREA NITROGEN 8 mg/dL (7-20); CALCIUM 8.6 mg/dL (8.4-10.2); CARBON DIOXIDE 25 mmol/L (22-30); CHLORIDE 102 mmol/L (98-107); GLUCOSE 132 mg/dL (75-110); POTASSIUM 3.7 mmol/L (3.6-5.0); TOTAL PROTEIN 5.3 g/dL (6.3-8.2)
--- NOTE | 2020-06-30 08:11 | PDOC PROGRESS REPORT ---
Subjective Date:: 06/30/20 Subjective:: Doing about the same. Awaiting bronchoscopy this am. NPO currently. Reason For Visit: PNEUMONIA,MULTIPLE CHEST NODULES Physical Exam Vital Signs: Temp Pulse Resp BP Pulse Ox 98.2 F 107 H 20 151/59 H 96 06/30/20 02:49 06/30/20 02:49 06/30/20 02:49 06/30/20 02:49 06/30/20 03:51 Pulse Oximeter Continuous Start: 06/25/20 00:36 Freq: RTQ4 Status: Active Protocol: Document 06/30/20 03:51 [facility] (Rec: 06/30/20 03:51 [facility] [email or web address]) Pulse Oximetry Assessment Oxygen Saturation (92-100) 96 Oxygen Flow Rate (L/min) 1.5 Oxygen Delivery Method Nasal Cannula Fraction of Inspired Oxygen (FIO2) 26 Equipment Usage Equipment in Use Continuous SpO2 Machine # 4 Intake & Output 06/29/20 06/30/20 07/01/20 06:59 06:59 06:59 Intake Total 1031 1461 Balance 1031 1461 Weight 75.9 kg 75.8 kg General appearance: PRESENT: no acute distress, well-developed, well-nourished Head exam: PRESENT: atraumatic, normocephalic Eye exam: PRESENT: conjunctiva pink, EOMI, PERRLA. ABSENT: scleral icterus Ear exam: PRESENT: normal external ear exam Mouth exam: PRESENT: moist, tongue midline Neck exam: ABSENT: carotid bruit, JVD, lymphadenopathy, thyromegaly Respiratory exam: PRESENT: clear to auscultation kayce. ABSENT: rales, rhonchi, wheezes Cardiovascular exam: PRESENT: RRR. ABSENT: diastolic murmur, rubs, systolic murmur Pulses: PRESENT: normal dorsalis pedis pul Vascular exam: PRESENT: normal capillary refill GI/Abdominal exam: PRESENT: normal bowel sounds, soft. ABSENT: distended, guarding, mass, organolmegaly, rebound, tenderness Rectal exam: PRESENT: deferred Extremities exam: PRESENT: full ROM. ABSENT: calf tenderness, clubbing, pedal edema Neurological exam: PRESENT: alert, awake, oriented to person, oriented to place, oriented to time, oriented to situation, CN II-XII grossly intact. ABSENT: motor sensory deficit Psychiatric exam: PRESENT: appropriate affect, normal mood. ABSENT: homicidal ideation, suicidal ideation Skin exam: PRESENT: dry, intact, warm. ABSENT: cyanosis, rash Results Laboratory Results: 06/30/20 04:58 06/30/20 04:58 06/27/20 06/27/20 06/30/20 14:25 14:25 04:58 WBC 5.9 RBC 3.98 L Hgb 10.2 L Hct 30.8 L MCV 78 L MCH 25.7 L MCHC 33.2 RDW 16.4 H Plt Count 251 Seg Neutrophils % 81.3 H Sodium Potassium Chloride Carbon Dioxide Anion Gap BUN Creatinine Est GFR ( Amer) Glucose Calcium Total Bilirubin AST Alkaline Phosphatase Total Protein Albumin Fluid Glucose 108 Fluid Total Protein 3.6 Fluid Albumin 2.4 Fluid LDH 254 06/30/20 04:58 WBC RBC Hgb Hct MCV MCH MCHC RDW Plt Count Seg Neutrophils % Sodium 135.4 L Potassium 3.7 Chloride 102 Carbon Dioxide 25 Anion Gap 8 BUN 8 Creatinine 0.68 Est GFR ( Amer) > 60 Glucose 132 H Calcium 8.6 Total Bilirubin 0.5 AST 106 H Alkaline Phosphatase 476 H Total Protein 5.3 L Albumin 2.8 L Fluid Glucose Fluid Total Protein Fluid Albumin Fluid LDH 06/24/20 21:20 Blood Blood Culture - Final NO GROWTH IN 5 DAYS 06/24/20 21:05 Blood Blood Culture - Final NO GROWTH IN 5 DAYS 06/24/20 19:47 Troponin I < 0.012 NT-Pro-B Natriuret Pep 327 H Impressions: Chest/Abdomen CTA 06/24/20 21:39 IMPRESSION: 1. No pulmonary embolus. 2. Numerous solid pulmonary nodules, the largest in the left lower lobe measuring 3.1 cm. There is also extensive multilevel mediastinal and hilar lymphadenopathy and questionable lytic lesion of the T7 vertebral body. These findings are compatible with metastatic disease. Unknown primary. 3. Moderate right pleural effusion with right basilar compressive atelectasis. 4. Patchy airspace opacities in the right lung may represent a new bronchial spread of neoplasm or infectious pneumonic process related to bronchial compression by right hilar lymphadenopathy. 5. Coronary artery atherosclerosis. This exam was performed according to our departmental dose-optimization program, which includes automated exposure control, adjustment of the mA and/or kV according to patient size and/or use of iterative reconstruction technique. Thoracentesis Ultrasound 06/27/20 00:00 IMPRESSION: SUCCESSFUL THORACENTESIS USING ULTRASOUND GUIDANCE. Chest X-Ray 06/27/20 16:37 IMPRESSION: Persistent consolidation predominantly in the right lung unchanged from prior. No pneumothorax. Assessment & Plan - Diagnosis (1) Multiple lung nodules Is this a current diagnosis for this admission?: Yes Plan: Planned for bronch today (2) Pleural effusion Is this a current diagnosis for this admission?: Yes Plan: awaiting cytology - Time Time Spent with patient: 35 or more minutes
[2020-06-30] MEDS ORDERED: GLYCOPYRROLATE 1 MG/5 ML VIAL ONE (08:31)
[2020-06-30] MEDS: ZINC SULFATE 220 MG CAPSULE PO SCH (10:42)
[2020-06-30] MEDS: FLUTICASONE NASAL SPRAY 50 MCG/SPRY 120 SPRAY/16 GM NASL SCH (10:45)
[2020-06-30] MEDS: VALACYCLOVIR HCL 500 MG TABLET PO SCH (10:46)
[2020-06-30] MEDS: AMLODIPINE BESYLATE 5 MG TABLET PO SCH (10:46)
[2020-06-30] MEDS: LISINOPRIL 5 MG TABLET PO SCH (10:46)
[2020-06-30] MEDS: FAMOTIDINE 20 MG TABLET PO SCH (10:46)
[2020-06-30] MEDS: CYCLOSPORINE 0.05% OPH EMULSIO 0.4 ML DROPERETTE OU SCH ×2 (10:47→17:18)
[2020-06-30] MEDS ORDERED: PROMETHAZINE HCL INJ 25 MG/1 ML VIAL IM SCH (11:00)
[2020-06-30] MEDS ORDERED: ATROPINE SULFATE INJ 0.4 MG/1 ML VIAL IM SCH (11:15)
[2020-06-30] MEDS ORDERED: PROPOFOL INJ 200 MG/20 ML VIAL IV ONE (12:37)
[2020-06-30] MEDS ORDERED: KETAMINE HCL INJ 500 MG/10 ML VIAL ONE (12:37)
[2020-06-30] MEDS ORDERED: MIDAZOLAM 2 MG/2 ML INJ ONE (12:37)
[2020-06-30] MEDS ORDERED: LIDOCAINE 2% JELLY 5 ML TUBE ONE (12:56)
[2020-06-30] MEDS ORDERED: PROMETHAZINE HCL INJ 25 MG/1 ML VIAL ONE (12:56)
[2020-06-30] MEDS ORDERED: ALBUTEROL SULFATE 0.083% NEB 2.5 MG/3 ML AMPUL NEB ONE (12:58)
[2020-06-30] MEDS ORDERED: LIDOCAINE 4% INJ/PF (40 MG/ML) 5 ML AMPUL ONE (13:02)
[2020-06-30] MEDS: LIDOCAINE 2% INJ-PF (20 MG/ML) 10 ML AMPUL NEB ONE ×3 (13:12→16:33)
[2020-06-30] MEDS: LIDOCAINE 2% VISCOUS SOLN 15 ML UDCUP ONE (13:13)
[2020-06-30] MEDS ORDERED: IPRATROPIUM/ALBUTEROL 0.5-2.5 MG/3 ML AMPUL NEB ONE (14:30)
--- NOTE | 2020-06-30 15:18 | Operative Report ---
Operative Report DATE OF SURGERY: 06/30/20 PREOPERATIVE DIAGNOSIS: Multinodular pulmonary infiltrates POSTOPERATIVE DIAGNOSIS: 1. Multinodular pulmonary infiltrates #2 splayed gracy at the origin of the bronchus intermedius and right upper lobe bronchus OPERATION: Fiberoptic bronchoscopy with brushings washings and biopsy. ANESTHESIA: Moderate Sedation COMPLICATIONS: None. ESTIMATED BLOOD LOSS: Less than 5 cc. INTRAOPERATIVE FINDINGS: Abnormal endobronchial mucosa involving the right upper lobe bronchus intermedius right middle lobe and right lower lobe bronchi as well as her segments and subsegments. There appeared to be some heaping of the endobronchial tissue in these areas. In addition the gracy between the right upper lobe and the bronchus intermedius was splayed. PROCEDURE: Informed consent was obtained. The patient was prepped and draped in the usual fashion. Anesthesia was provided by the nurse stock lifter. Fiberoptic instrument was introduced via the right nares without difficulty. Vocal cords were visualized and were normal. Trachea was visualized and was grossly normal. Attention was then focused to the left with a left mainstem left upper lobe left lower lobe bronchi and subsegments were visualized. There was mild endobronchial atypia noted. Attention was then focused to the right where the right upper lobe bronchus was noted to be somewhat splayed from the bronchus intermedius. The mucosa in this area was somewhat abnormal as well with what appeared to be some heaping of the mucosal surfaces. Bronchus intermedius right middle lobe and right lower lobe bronchi as well as her segments subsegments were visualized and were found to have no obvious obstructing endobronchial tumor. Likewise there was no obstructing endobronchial tumor involving the right upper lobe. Brushings and washings were taken from the right middle lobe and right upper lobe. Biopsy of the splayed gracy between the right upper lobe and bronchus intermedius was also taken. Patient tolerated procedure well with minimal bleeding. He was sent to recovery in good condition. Consult were obtained for hansen culture cytology and pathologic review.
--- NOTE | 2020-06-30 19:38 | PDOC PROGRESS REPORT ---
Subjective Date:: 06/30/20 Subjective:: HENRY OSUNA is a 70 year old male with a history of hypertension comes with 4 days duration of nonproductive cough and shortness of breath with exertion. Patient also reports that he had a fever of 102 at home this morning. He generally feels very weak, has decreased appetite. He states that the shortness of breath has been progressively getting worse and today he even feels short of breath at rest and he has to prop himself up on his bed to sleep. He states that he had leg swelling few weeks back for which Doppler ultrasound was done and there was no DVT but ultrasound done at that time showed an incidental lymphadenopathy in his left groin area and biopsy was done he was told that it was negative for malignancy. Prior to 4 days ago patient states that he was fully functional and denies any weight loss, night sweating, chronic cough, hemoptysis, nausea, vomiting, abdominal pain, constipation, diarrhea or any change in his urinary habits. He states that he had a colonoscopy 2 months back and was told that it was negative for cancer. He is a former smoker but this been many years since he quit smoking. Patient denies any recent sick contact history. 06/25/20 D1 hospital stay. He was seen and examined at bedside. Still coughing quite a lot. On 2L nasal cannula O2 support. Dr. León reviewed his CT chest findings and suggested a few days of abx before pursuing diagnostic work up of lung nodules and pleural effusion. He is currently on ceftri and azithro for Pneumonia. 06/26/20 D2 hospital stay. He was seen and examined at bedside. Not much improvement in terms of breathing status, still coughing a lot despite robitussin and tessalon. I have added morphine as well. Plan for thoracentesis tomorrow. I was able to talk to maxim his daughter and updated her of the plan of treatment. 06/27/20 D3 Hospital stay. He was seen and examined at bedside. Still coughing a lot, still mildly SOB. No fever, fair appetite. He was started on low dose morphine to help with his cough and dyspnea. He is scheduled for thoracentesis today. Dr. Yeh from pulmonology also saw her and recommended bronchoscopy after thoracentesis was nondiagnostic. 06/28/20 D4 Hospital stay. He was seen and examined at bedside. He reports that he feels slightly better today than he did yesterday but not by a whole lot. Cough is still about the same but morphine helps according to him. I have spoken to Dr. León and according to him he would still need a bronch which will likely happen on tuesday. 06/29/20 d5 hospital stay. He was seen and examined at bedside. Cough is still bothersome but is much better compared to when he came in. Awaiting results of his thoracentesis. He is scheduled for a bronchoscopy by Dr. Plunkett tomorrow morning, n.p.o. orders in. Appetite fair, denies fever, chest pain, palpitations. Able to have a bowel movement. 06/30/20 D6 hospital stay. He was seen and examined at bedside. S/P bronchoscopy by Dr. Veras. Still coughing, less SOB. Denies any chest pain, palpitations, diarrhea. We are still waiting for his pleural fluid analysis result. He is able to have a bowel movement. If he is stable enough to go home tomorrow he may be able go home with home oxygen and await biopsy results at home. Reason For Visit: PNEUMONIA,MULTIPLE CHEST NODULES Physical Exam Vital Signs: Temp Pulse Resp BP Pulse Ox 98.4 F 101 H 18 123/61 97 06/30/20 18:00 06/30/20 18:00 06/30/20 18:00 06/30/20 18:00 06/30/20 18:00 Pulse Oximeter Continuous Start: 06/25/20 00:36 Freq: RTQ4 Status: Active Protocol: Document 06/30/20 16:00 (Rec: 06/30/20 17:47 [facility] [id number]) Pulse Oximetry Assessment Oxygen Saturation (92-100) 97 Oxygen Flow Rate (L/min) 1.5 Oxygen Delivery Method Nasal Cannula Equipment Usage Equipment in Use Continuous SpO2 Machine # 4 Intake & Output 06/29/20 06/30/20 07/01/20 06:59 06:59 06:59 Intake Total 1031 1461 1100 Output Total 0 Balance 1031 1461 1100 Weight 75.9 kg 75.8 kg General appearance: PRESENT: no acute distress, cooperative Head exam: PRESENT: atraumatic, normocephalic Eye exam: PRESENT: EOMI, PERRLA Mouth exam: PRESENT: moist Neck exam: PRESENT: full ROM Respiratory exam: PRESENT: rales, rhonchi, symmetrical, unlabored Cardiovascular exam: PRESENT: RRR, +S1, +S2 GI/Abdominal exam: PRESENT: normal bowel sounds, rebound, soft Extremities exam: PRESENT: full ROM Musculoskeletal exam: PRESENT: full ROM Neurological exam: PRESENT: alert, awake, oriented to person, oriented to place, oriented to time, oriented to situation Skin exam: PRESENT: normal color Results Laboratory Results: 06/30/20 04:58 06/30/20 04:58 06/30/20 06/30/20 04:58 04:58 WBC 5.9 RBC 3.98 L Hgb 10.2 L Hct 30.8 L MCV 78 L MCH 25.7 L MCHC 33.2 RDW 16.4 H Plt Count 251 Seg Neutrophils % 81.3 H Sodium 135.4 L Potassium 3.7 Chloride 102 Carbon Dioxide 25 Anion Gap 8 BUN 8 Creatinine 0.68 Est GFR ( Amer) > 60 Glucose 132 H Calcium 8.6 Total Bilirubin 0.5 AST 106 H Alkaline Phosphatase 476 H Total Protein 5.3 L Albumin 2.8 L 06/24/20 21:20 Blood Blood Culture - Final NO GROWTH IN 5 DAYS 06/24/20 21:05 Blood Blood Culture - Final NO GROWTH IN 5 DAYS 06/24/20 19:47 Troponin I < 0.012 NT-Pro-B Natriuret Pep 327 H Impressions: Chest/Abdomen CTA 06/24/20 21:39 IMPRESSION: 1. No pulmonary embolus. 2. Numerous solid pulmonary nodules, the largest in the left lower lobe measuring 3.1 cm. There is also extensive multilevel mediastinal and hilar lymphadenopathy and questionable lytic lesion of the T7 vertebral body. These findings are compatible with metastatic disease. Unknown primary. 3. Moderate right pleural effusion with right basilar compressive atelectasis. 4. Patchy airspace opacities in the right lung may represent a new bronchial spread of neoplasm or infectious pneumonic process related to bronchial compression by right hilar lymphadenopathy. 5. Coronary artery atherosclerosis. This exam was performed according to our departmental dose-optimization program, which includes automated exposure control, adjustment of the mA and/or kV according to patient size and/or use of iterative reconstruction technique. Thoracentesis Ultrasound 06/27/20 00:00 IMPRESSION: SUCCESSFUL THORACENTESIS USING ULTRASOUND GUIDANCE. Chest X-Ray 06/27/20 16:37 IMPRESSION: Persistent consolidation predominantly in the right lung unchanged from prior. No pneumothorax. Assessment and Plan - Diagnosis (1) Pneumonia Qualifiers: Pneumonia type: due to unspecified organism Laterality: right Lung location: unspecified part of lung Qualified Code(s): J18.9 - Pneumonia, unspecified organism Is this a current diagnosis for this admission?: Yes Plan: -Came in due to cough and SOB - CT chest patchy airspace opacities in the right lung, multiple lung nodules la rgest measuring 3.1 cm left lower lobe - post obstructive pneumonia fr malignancy or CAP -Blood culture no growth x 2 -Covid test NEGATIVE - s/p thoracentesis awaiting result -Status post bronchoscopy with biopsy awaiting result -On ceftriaxone and azithromycin for community-acquired pneumonia. Switched to levaquin -Oncology following -Pulmonology following. (2) Multiple lung nodules Is this a current diagnosis for this admission?: Yes Plan: -Patient denies chronic cough or constitutional symptoms beyond 4 days, former smoker -CT chest was significant for numerous solid pulmonary nodules with the largest being 3.1 cm in the left lower lobe with extensive multilevel mediastinal lymphadenopathy and lytic lesion on T7 reymundo tebra -Patient reports that he had biopsy of lymph node at left inguinal area which was negative -Recent colonoscopy was negative for malignancy -Status post thoracentesis drained 900 mL of clear straw-colored fluid. Fluid sent for analysis cultures and cytology - s/p bronchoscopy with biopsy 06/30/20 - awaiting result (3) Pleural effusion Is this a current diagnosis for this admission?: Yes Plan: -Moderate-sized right pleural effusion highly suspicious for malignant pleural effusion given multiple lung nodules -Status post thoracentesis - lights criteria EXUDATIVE pleural effusion - awaiting cytology, culture, AFB (4) Hypertension Is this a current diagnosis for this admission?: Yes Plan: - resumed home meds (5) Microcytic anemia Is this a current diagnosis for this admission?: Yes Plan: -Microcytic hypochromic anemia -iron studies showing consistent with MIRIAM - last colonoscopy no cocern for bleeding or cancerous polyps - 1 dose of venofer - will continue to monitor (6) Cough in adult Is this a current diagnosis for this admission?: Yes Plan: - very bothersome for the patient - likely from his Pneumonia and or suspected lung malignancy - tessalon and kailynitussin does not help - I have started him on low dose morphine (7) Transaminitis Is this a current diagnosis for this admission?: Yes Plan: - AST 59>125>106 - ALT 69>80>128 - will monitor for now. maybe 2/2 to abx or liver mets - Time Time Spent with patient: 25-34 minutes Medications reviewed and adjusted accordingly: Yes Anticipated Discharge Disposition: Home with Home Health Anticipated Discharge Timeframe: tbd
[2020-07-01] MEDS: FAMOTIDINE 20 MG TABLET PO SCH ×2 (00:11→09:15)
[2020-07-01] MEDS: BENZONATATE 100 MG CAPSULE PO SCH ×3 (00:11→14:07)
[2020-07-01] MEDS: FLUTICASONE NASAL SPRAY 50 MCG/SPRY 120 SPRAY/16 GM NASL SCH ×2 (00:12→09:15)
--- NOTE | 2020-07-01 08:20 | PDOC PROGRESS REPORT ---
Subjective Date:: 07/01/20 Subjective:: Pt still cough, SOB continued, needs home o2 eval. But unfortunately, LLE now more swollen. Ordered stat U/S venous today Reason For Visit: PNEUMONIA,MULTIPLE CHEST NODULES Physical Exam Vital Signs: Temp Pulse Resp BP Pulse Ox 99.0 F 95 17 133/61 H 97 06/30/20 23:44 06/30/20 23:44 06/30/20 23:44 06/30/20 23:44 07/01/20 07:00 Pulse Oximeter Continuous Start: 06/25/20 00:36 Freq: RTQ4 Status: Active Protocol: Document 07/01/20 03:48 DBE (Rec: 07/01/20 06:51 DBE [id number]) Pulse Oximetry Assessment Oxygen Saturation (92-100) 97 Oxygen Flow Rate (L/min) 3 Oxygen Delivery Method Nasal Cannula Fraction of Inspired Oxygen (FIO2) 32 Equipment Usage Equipment in Use Continuous SpO2 Machine # 4 Intake & Output 06/30/20 07/01/20 07/02/20 06:59 06:59 06:59 Intake Total 1461 1200 Output Total 0 Balance 1461 1200 Weight 75.8 kg 74.4 kg General appearance: PRESENT: no acute distress, well-developed, well-nourished Head exam: PRESENT: atraumatic, normocephalic Eye exam: PRESENT: conjunctiva pink, EOMI, PERRLA. ABSENT: scleral icterus Ear exam: PRESENT: normal external ear exam Mouth exam: PRESENT: moist, tongue midline Neck exam: ABSENT: carotid bruit, JVD, lymphadenopathy, thyromegaly Respiratory exam: PRESENT: clear to auscultation kayce. ABSENT: rales, rhonchi, wheezes Cardiovascular exam: PRESENT: RRR. ABSENT: diastolic murmur, rubs, systolic murmur Pulses: PRESENT: normal dorsalis pedis pul Vascular exam: PRESENT: normal capillary refill GI/Abdominal exam: PRESENT: normal bowel sounds, soft. ABSENT: distended, guar ding, mass, organolmegaly, rebound, tenderness Rectal exam: PRESENT: deferred Extremities exam: PRESENT: full ROM. ABSENT: calf tenderness, clubbing, pedal edema Neurological exam: PRESENT: alert, awake, oriented to person, oriented to place, oriented to time, oriented to situation, CN II-XII grossly intact. ABSENT: motor sensory deficit Psychiatric exam: PRESENT: appropriate affect, normal mood. ABSENT: homicidal ideation, suicidal ideation Skin exam: PRESENT: dry, intact, warm. ABSENT: cyanosis, rash Results Laboratory Results: 06/30/20 04:58 06/30/20 04:58 06/24/20 19:47 Troponin I < 0.012 NT-Pro-B Natriuret Pep 327 H Impressions: Chest/Abdomen CTA 06/24/20 21:39 IMPRESSION: 1. No pulmonary embolus. 2. Numerous solid pulmonary nodules, the largest in the left lower lobe measuring 3.1 cm. There is also extensive multilevel mediastinal and hilar lymphadenopathy and questionable lytic lesion of the T7 vertebral body. These findings are compatible with metastatic disease. Unknown primary. 3. Moderate right pleural effusion with right basilar compressive atelectasis. 4. Patchy airspace opacities in the right lung may represent a new bronchial spread of neoplasm or infectious pneumonic process related to bronchial compression by right hilar lymphadenopathy. 5. Coronary artery atherosclerosis. This exam was performed according to our departmental dose-optimization program, which includes automated exposure control, adjustment of the mA and/or kV according to patient size and/or use of iterative reconstruction technique. Thoracentesis Ultrasound 06/27/20 00:00 IMPRESSION: SUCCESSFUL THORACENTESIS USING ULTRASOUND GUIDANCE. Chest X-Ray 06/27/20 16:37 IMPRESSION: Persistent consolidation predominantly in the right lung unchanged from prior. No pneumothorax. Assessment & Plan - Diagnosis (1) Multiple lung nodules Is this a current diagnosis for this admission?: Yes Plan: Bronch done, results pending. (2) Pleural effusion Is this a current diagnosis for this admission?: Yes Plan: S/p thoracentesis, results pending (3) Swelling of lower extremity Is this a current diagnosis for this admission?: Yes Plan: U/s done, awaiting results - Time Time Spent with patient: 35 or more minutes Disposition: U/s done. If clot needs anticoag. Home o2 eval pending. If these issues resolved, should be able to go home today - Inpatient Certification Based on my medical assessment, after consideration of the patient's comorbidities, presenting symptoms, or acuity I expect that the services needed warrant INPATIENT care.: Yes I certify that my determination is in accordance with my understanding of Medicare's requirements for reasonable and necessary INPATIENT services [42 CFR 412.3e].: Yes Medical Necessity: Risk of Complication if Not Cared For in Hospital
[2020-07-01] MEDS: VALACYCLOVIR HCL 500 MG TABLET PO SCH (09:14)
[2020-07-01] MEDS: AMLODIPINE BESYLATE 5 MG TABLET PO SCH (09:14)
[2020-07-01] MEDS: LISINOPRIL 5 MG TABLET PO SCH (09:15)
[2020-07-01] MEDS: CYCLOSPORINE 0.05% OPH EMULSIO 0.4 ML DROPERETTE OU SCH (09:15)
[2020-07-01] MEDS: ZINC SULFATE 220 MG CAPSULE PO SCH (09:15)
[2020-07-01] MEDS ORDERED: LEVOFLOXACIN 750 MG TABLET PO SCH (10:00)
[2020-07-01] MEDS: ACETAMINOPHEN 325 MG TABLET PO PRN (12:10)
--- NOTE | 2020-07-01 12:45 | PDOC PROGRESS REPORT ---
Subjective Date:: 07/01/20 Subjective:: In the interim this patient is recovered from his bronchoscopy yesterday. He de nies any new symptomatology. He still has some dyspnea even at rest. Reason For Visit: PNEUMONIA,MULTIPLE CHEST NODULES Physical Exam Vital Signs: Temp Pulse Resp BP Pulse Ox 98.2 F 100 20 140/66 H 97 07/01/20 08:11 07/01/20 08:11 07/01/20 08:11 07/01/20 08:11 07/01/20 08:11 Pulse Oximeter Continuous Start: 06/25/20 00:36 Freq: RTQ4 Status: Active Protocol: Document 07/01/20 03:48 DBE (Rec: 07/01/20 06:51 DBE [id number]) Pulse Oximetry Assessment Oxygen Saturation (92-100) 97 Oxygen Flow Rate (L/min) 3 Oxygen Delivery Method Nasal Cannula Fraction of Inspired Oxygen (FIO2) 32 Equipment Usage Equipment in Use Continuous SpO2 Machine # 4 Intake & Output 06/30/20 07/01/20 07/02/20 06:59 06:59 06:59 Intake Total 1461 1200 Output Total 0 Balance 1461 1200 Weight 75.8 kg 74.4 kg Exam: Exam today is largely unchanged he continues to have coarse breath sounds with scattered rhonchi throughout all lung altman. Results Laboratory Results: 06/30/20 04:58 06/30/20 04:58 06/24/20 19:47 Troponin I < 0.012 NT-Pro-B Natriuret Pep 327 H Impressions: Chest/Abdomen CTA 06/24/20 21:39 IMPRESSION: 1. No pulmonary embolus. 2. Numerous solid pulmonary nodules, the largest in the left lower lobe measuring 3.1 cm. There is also extensive multilevel mediastinal and hilar lymphadenopathy and questionable lytic lesion of the T7 vertebral body. These findings are compatible with metastatic disease. Unknown primary. 3. Moderate right pleural effusion with right basilar compressive atelectasis. 4. Patchy airspace opacities in the right lung may represent a new bronchial spread of neoplasm or infectious pneumonic process related to bronchial compression by right hilar lymphadenopathy. 5. Coronary artery atherosclerosis. This exam was performed according to our departmental dose-optimization program, which includes automated exposure control, adjustment of the mA and/or kV according to patient size and/or use of iterative reconstruction technique. Thoracentesis Ultrasound 06/27/20 00:00 IMPRESSION: SUCCESSFUL THORACENTESIS USING ULTRASOUND GUIDANCE. Chest X-Ray 06/27/20 16:37 IMPRESSION: Persistent consolidation predominantly in the right lung unchanged from prior. No pneumothorax. Status: Image reviewed by me - In reviewing this patient's radiographs, he has a CT scan of the abdomen from 03/26/2020. The CT scan of the abdomen captured the lower quarter of his lungs. Interestingly his lung altman were basically clear at that time although there are a few small nodules which are now much larger in compariso Assessment & Plan - Diagnosis (1) Hilar adenopathy Is this a current diagnosis for this admission?: Yes (2) Multiple lung nodules Is this a current diagnosis for this admission?: Yes (3) Pleural effusion Is this a current diagnosis for this admission?: Yes (4) Pneumonia Qualifiers: Pneumonia type: due to unspecified organism Laterality: right Lung location: unspecified part of lung Qualified Code(s): J18.9 - Pneumonia, unspecified organism Is this a current diagnosis for this admission?: Yes (5) Postobstructive pneumonia Is this a current diagnosis for this admission?: Yes - Time Time Spent with patient: 35 or more minutes - Plan Summary Plan Summary: We are awaiting results from his thoracentesis and bronchoscopy. While there were no obvious tumorous lesions at the time of bronchoscopy he did have noticeably abnormal endobronchial mucosa. In particular the gracy between the upper lobe and bronchus intermedius was abnormal and was biopsied. We are awaiting results from those biopsies. As noted above in reviewing his x-rays and CT scans he had a CT scan of the abdomen done in March 2020. This included the lower one quarter of his lungs. Interestingly he had a few very small lung nodules at that time which are now markedly larger. It would seem that this rapid increase in size of the lung nodules is more in keeping with an infectious etiology as opposed to a neoplastic process. It is interesting to speculate abo ut the next diagnostic steps if we are unable to establish a diagnosis. I think a percutaneous needle biopsy would be somewhat problematic given both the more centrally located nature of these lung nodules and their location around pulmonary vasculature. We may need to proceed with mediastinoscopy and/or a mini thoracotomy to establish the diagnosis. Will discuss further with Romelia once the results from his bronchoscopy at thoracentesis are available.
[2020-07-01 16:00] VITALS: BP 161/56
--- NOTE | 2020-07-01 18:02 | RADIOLOGY REPORT (SQ) ---
EXAM DESCRIPTION: VENOUS BILATERAL LOWER IMAGES COMPLETED DATE/TIME: 07/01/2020 1:06 pm REASON FOR STUDY: lower extremity swelling D64.9 ANEMIA, UNSPECIFIED J18.9 PNEUMONIA, UNSPECIFIED ORGANISM D68.9 COAGULATION DEFECT, UNSPECIFIED COMPARISON: 03/25/2020. TECHNIQUE: Dynamic and static stephens scale and color images acquired of both lower extremity venous sy stems. Selected spectral images acquired with additional compression and augmentation maneuvers. Imag es stored on PACS. LIMITATIONS: None. FINDINGS: RIGHT LEG COMMON FEMORAL AND FEMORAL: Normal phasicity, compression and augmentation. No visualized echogenic m aterial on stephens scale. No defects on color images. POPLITEAL: Normal compression and augmentation. No visualized echogenic material on stephens scale. No de fects on color images. CALF VESSELS: Normal compression and augmentation. No visualized echogenic material on stephens scale. No defects on color image. GSV AND SSV: Normal compression. No visualized echogenic material on stephens scale. No defects on color images. ANY DEEP VENOUS INSUFFICIENCY: Not evaluated. ANY EVIDENCE OF POPLITEAL CYST: No. OTHER: No other significant finding. LEFT LEG COMMON FEMORAL AND FEMORAL: Normal phasicity, compression and augmentation. No visualized echogenic m aterial on stephens scale. No defects on color images. POPLITEAL: Normal compression and augmentation. No visualized echogenic material on stephens scale. No de fects on color images. CALF VESSELS: Normal compression and augmentation. No visualized echogenic material on stephens scale. No defects on color images. GSV AND SSV: Normal compression. No visualized echogenic material on stephens scale. No defects on color images. ANY DEEP VENOUS INSUFFICIENCY: Not evaluated. ANY EVIDENCE POPLITEAL CYST: No. OTHER: Enlarged lymph node, measuring 1.3 x 3.0 cm. This has decreased size from the prior study. IMPRESSION: NO EVIDENCE DVT OR SVT IN EITHER LEG. ENLARGED LYMPH NODE ON THE LEFT HAS DECREASED IN SIZE FROM THE PRIOR STUDY. TECHNICAL DOCUMENTATION: JOB ID: [id number] 2010 [employer]- All Rights Reserved Reading location - IP/workstation name: [email or web address]
--- NOTE | 2020-07-22 11:39 | PDOC DISCHARGE SUMMARY ---
Impression - Admit/DC Date/PCP Admission Date/Primary Care Provider: 06/26/20 13:04 CHICO YA NP Discharge Date: 07/01/20 - Discharge Diagnosis (1) Pneumonia Is this a current diagnosis for this admission?: Yes (2) Multiple lung nodules Is this a current diagnosis for this admission?: Yes (3) Pleural effusion Is this a current diagnosis for this admission?: Yes (4) Hypertension Is this a current diagnosis for this admission?: Yes (5) Microcytic anemia Is this a current diagnosis for this admission?: Yes (6) Cough in adult Is this a current diagnosis for this admission?: Yes (7) Transaminitis Is this a current diagnosis for this admission?: Yes - Additional Information Resuscitation Status: Full Code Discharge Diet: As Tolerated Discharge Activity: Activity As Tolerated Referrals: AMIE LEÓN MD [ACTIVE STAFF] - 07/16/20 11:00 am (follow up appointment jul 16 @ 11:00 am) CHICO YA NP [Primary Care Provider] - 07/16/20 10:30 am Prescriptions: Morphine Sulfate [Morphine Ir 15 Mg Tablet] 15 mg PO Q8HP PRN 3 Days #10 tablet PRN Reason: Guaifenesin/D-Methorphan Hb [Robitussin-Dm Syrup 10 ml Udcup] 10 ml PO QIDP PRN 5 Days #2 syrup PRN Reason: Benzonatate [Tessalon Perles 100 mg Capsule] 100 mg PO Q8 5 Days #15 capsule Home Medications: Amlodipine Besylate [Norvasc 5 mg Tablet] 10 mg PO DAILY 09/10/19 Lisinopril [Prinivil 5 mg Tablet] 10 mg PO DAILY 09/10/19 Valacyclovir HCl [Valacyclovir] 500 mg PO DAILY 09/10/19 Cyclosporine 0.05% Oph Emulsio [Restasis 0.05% Oph Emulsion Pf 0.4 ml] 1 drop OU BID 06/25/20 Benzonatate [Tessalon Perles 100 mg Capsule] 100 mg PO Q8 5 Days #15 capsule 07/01/20 Guaifenesin/D-Methorphan Hb [Robitussin-Dm Syrup 10 ml Udcup] 10 ml PO QIDP PRN 5 Days #2 syrup 07/01/20 Levofloxacin [Levaquin 750 mg Tablet] 750 mg PO DAILY 3 Days #3 tablet 07/01/20 Morphine Sulfate [Morphine Ir 15 Mg Tablet] 15 mg PO Q8HP PRN 3 Days #10 tablet 07/01/20 History of Present Illiness History of Present Illness: HENRY OSUNA is a 70 year old male, with a history of hypertension comes with 4 days duration of nonproductive cough and shortness of breath with exertion. Patient also reports that he had a fever of 102 at home this morning. He generally feels very weak, has decreased appetite. He states that the shortness of breath has been progressively getting worse and today he even feels short of breath at rest and he has to prop himself up on his bed to sleep. He states that he had leg swelling few weeks back for which Doppler ultrasound was done and there was no DVT but ultrasound done at that time showed an incidental lymphadenopathy in his left groin area and biopsy was done he was told that it was negative for malignancy. Prior to 4 days ago patient states that he was fully functional and denies any weight loss, night sweating, chronic cough, hemoptysis, nausea, vomiting, abdominal pain, constipation, diarrhea or any change in his urinary habits. He states that he had a colonoscopy 2 months back and was told that it was negative for cancer. He is a former smoker but this been many years since he quit smoking. Patient denies any recent sick contact history. Hospital Course Hospital Course: 06/25/20 D1 hospital stay. He was seen and examined at bedside. Still coughing quite a lot. On 2L nasal cannula O2 support. Dr. León reviewed his CT chest findings and suggested a few days of abx before pursuing diagnostic work up of lung nodules and pleural effusion. He is currently on ceftri and azithro for Pneumonia. 06/26/20 D2 hospital stay. He was seen and examined at bedside. Not much improvement in terms of breathing status, still coughing a lot despite robitussin and tessalon. I have added morphine as well. Plan for thoracentesis tomorrow. I was able to talk to maxim his daughter and updated her of the plan of treatment. 06/27/20 D3 Hospital stay. He was seen and examined at bedside. Still coughing a lot, still mildly SOB. No fever, fair appetite. He was started on low dose morphine to help with his cough and dyspnea. He is scheduled for thoracentesis today. Dr. Yeh from pulmonology also saw her and recommended bronchoscopy after thoracentesis was nondiagnostic. 06/28/20 D4 Hospital stay. He was seen and examined at bedside. He reports that he feels slightly better today than he did yesterday but not by a whole lot. Cough is still about the same but morphine helps according to him. I have spoken to Dr. León and according to him he would still need a bronch which will l ikely happen on tuesday. 06/29/20 d5 hospital stay. He was seen and examined at bedside. Cough is still bothersome but is much better compared to when he came in. Awaiting results of his thoracentesis. He is scheduled for a bronchoscopy by Dr. Plunkett tomorrow morning, n.p.o. orders in. Appetite fair, denies fever, chest pain, palpitations. Able to have a bowel movement. 06/30/20 D6 hospital stay. He was seen and examined at bedside. S/P bronchoscopy by Dr. Veras. Still coughing, less SOB. Denies any chest pain, palpitations, diarrhea. We are still waiting for his pleural fluid analysis result. He is able to have a bowel movement. If he is stable enough to go home tomorrow he may be able go home with home oxygen and await biopsy results at home. 07/01/20 Patent was discharged home with morphine for pain and cough and antibiotic completion. HE was told to follow up with and Dr. Veras outpatient. Physical Exam Vital Signs: Temp Pulse Resp BP Pulse Ox 98.9 F 108 H 17 161/56 H 93 07/01/20 15:58 07/01/20 15:58 07/01/20 15:58 07/01/20 15:58 07/01/20 15:58 Pulse Oximeter Continuous Start: 06/25/20 00:36 Freq: RTQ4 Status: Discharge Protocol: Document 07/01/20 14:03 [facility] [place] (Rec: 07/01/20 14:04 [facility] [place] [id number]) Pulse Oximetry Assessment Oxygen Saturation (92-100) 93 Oxygen Flow Rate (L/min) 3 Oxygen Delivery Method Nasal Cannula Fraction of Inspired Oxygen (FIO2) 32 Equipment Usage Equipment in Use Continuous SpO2 Machine # 4 General appearance: PRESENT: no acute distress, cooperative Head exam: PRESENT: atraumatic, normocephalic Eye exam: PRESENT: EOMI, PERRLA Mouth exam: PRESENT: moist Neck exam: PRESENT: full ROM Respiratory exam: PRESENT: clear to auscultation kayce, symmetrical, unlabored Cardiovascular exam: PRESENT: RRR, +S1, +S2 Vascular exam: PRESENT: normal capillary refill GI/Abdominal exam: PRESENT: normal bowel sounds, soft. ABSENT: rebound, tenderness Extremities exam: PRESENT: full ROM Musculoskeletal exam: PRESENT: full ROM Neurological exam: PRESENT: alert, awake, oriented to person, oriented to place, oriented to time, oriented to situation Psychiatric exam: PRESENT: normal mood Skin exam: PRESENT: normal color Results Laboratory Results: WBC 5.9 10^3/uL (4.0-10.5) 06/30/20 04:58 RBC 3.98 10^6/uL (4.35-5.55) L 06/30/20 04:58 Hgb 10.2 g/dL (13.5-17.0) L 06/30/20 04:58 Hct 30.8 % (37.9-51.0) L 06/30/20 04:58 MCV 78 fl (80-97) L 06/30/20 04:58 MCH 25.7 pg (27.0-33.4) L 06/30/20 04:58 MCHC 33.2 g/dL (32.0-36.0) 06/30/20 04:58 RDW 16.4 % (11.5-14.0) H 06/30/20 04:58 Plt Count 251 10^3/uL (150-450) 06/30/20 04:58 Lymph % (Auto) 5.4 % (13-45) L 06/30/20 04:58 [place] % (Auto) 10.7 % (3-13) 06/30/20 04:58 Eos % (Auto) 2.2 % (0-6) 06/30/20 04:58 Baso % (Auto) 0.4 % (0-2) 06/30/20 04:58 Reticulocyte # 0.035 10^6/uL (0.028-0.122) 06/25/20 18:45 Absolute Neuts (auto) 4.8 10^3/uL (1.7-8.2) 06/30/20 04:58 Absolute Lymphs (auto) 0.3 10^3/uL (0.5-4.7) L 06/30/20 04:58 Absolute Monos (auto) 0.6 10^3/uL (0.1-1.4) 06/30/20 04:58 Absolute Eos (auto) 0.1 10^3/uL (0.0-0.6) 06/30/20 04:58 Absolute Basos (auto) 0.0 10^3/uL (0.0-0.2) 06/30/20 04:58 Seg Neutrophils % 81.3 % (42-78) H 06/30/20 04:58 Retic Count (auto) 0.79 % (0.66-2.85) 06/25/20 18:45 PT 14.7 SEC (11.4-15.4) 06/26/20 10:07 INR 1.13 06/26/20 10:07 Sodium 135.4 mmol/L (137-145) L 06/30/20 04:58 Potassium 3.7 mmol/L (3.6-5.0) 06/30/20 04:58 Chloride 102 mmol/L (98-107) 06/30/20 04:58 Carbon Dioxide 25 mmol/L (22-30) 06/30/20 04:58 Anion Gap 8 (5-19) 06/30/20 04:58 BUN 8 mg/dL (7-20) 06/30/20 04:58 Creatinine 0.68 mg/dL (0.52-1.25) 06/30/20 04:58 Est GFR ( Amer) > 60 (>60) 06/30/20 04:58 Est GFR (MDRD) Non-Af > 60 (>60) 06/30/20 04:58 Glucose 132 mg/dL (75-110) H 06/30/20 04:58 Lactic Acid 1.2 mmol/L (0.7-2.1) 06/24/20 21:20 Calcium 8.6 mg/dL (8.4-10.2) 06/30/20 04:58 Iron 15.2 ug/dL (49-181) L 06/25/20 18:45 TIBC 259 ug/dL (250-450) 06/25/20 18:45 % Saturation 6 % 06/25/20 18:45 Ferritin 426.00 ng/mL (17.9-464.0) 06/26/20 04:29 Total Bilirubin 0.5 mg/dL (0.2-1.3) 06/30/20 04:58 Direct Bilirubin 0.3 mg/dL (0.0-0.4) 06/30/20 04:58 Neonat Total Bilirubin Not Reportable 06/30/20 04:58 Neonat Direct Bilirubin Not Reportable 06/30/20 04:58 Neonat Indirect Bili Not Reportable 06/30/20 04:58 AST 106 U/L (17-59) H 06/30/20 04:58 ALT 125 U/L (<50) H 06/30/20 04:58 Alkaline Phosphatase 476 U/L (38-126) H 06/30/20 04:58 Lactate Dehydrogenase 259 U/L (120-246) H 06/27/20 04:20 Troponin I < 0.012 ng/mL 06/24/20 19:47 C-Reactive Protein 193.7 mg/L (<10.0) H 06/25/20 18:45 NT-Pro-B Natriuret Pep 327 pg/mL (<125) H 06/24/20 19:47 Total Protein 5.3 g/dL (6.3-8.2) L 06/30/20 04:58 Albumin 2.8 g/dL (3.5-5.0) L 06/30/20 04:58 Vitamin B12 896.0 pg/mL (239-931) 06/25/20 18:45 Folate 16.80 ng/mL (>2.76) 06/25/20 18:45 Urine Color YELLOW 06/24/20 19:52 Urine Appearance SLIGHTLY-CLOUDY 06/24/20 19:52 Urine pH 5.0 (5.0-9.0) 06/24/20 19:52 Ur Specific [place] 1.025 06/24/20 19:52 Urine Protein 30 mg/dL (NEGATIVE) H 06/24/20 19:52 Urine Glucose (UA) NEGATIVE mg/dL (NEGATIVE) 06/24/20 19:52 Urine Ketones NEGATIVE mg/dL (NEGATIVE) 11/10/20 19:52 Urine Blood NEGATIVE (NEGATIVE) 06/24/20 19:52 Urine Nitrite NEGATIVE (NEGATIVE) 06/24/20 19:52 Urine Bilirubin NEGATIVE (NEGATIVE) 06/24/20 19:52 Urine Urobilinogen 2.0 mg/dL (<2.0) H 06/24/20 19:52 Ur Leukocyte Esterase NEGATIVE (NEGATIVE) 06/24/20 19:52 Urine WBC (Auto) 2 /HPF 06/24/20 19:52 Urine RBC (Auto) 1 /HPF 06/24/20 19:52 U Hyaline Cast (Auto) 1 /LPF 06/24/20 19:52 Urine Bacteria (Auto) TRACE /HPF 06/24/20 19:52 Squamous Epi Cells Auto <1 /HPF 06/24/20 19:52 Urine Mucus (Auto) MOD /LPF 06/24/20 19:52 Urine Ascorbic Acid 40 (NEGATIVE) H 06/24/20 19:52 Fluid Glucose 108 mg/dL (.) 06/27/20 14:25 Fluid Total Protein 3.6 g/dL (.) 06/27/20 14:25 Fluid Albumin 2.4 g/dL (Not Estab.) 06/27/20 14:25 Fluid LDH 254 IU/L (.) 06/27/20 14:25 COVID-19 Source See comment 06/24/20 20:54 COVID-19 (YUMI) Not Detected (Not Detect) 06/24/20 20:54 Influenza A (Rapid) NEGATIVE (NEGATIVE) 06/24/20 20:54 Influenza B (Rapid) NEGATIVE (NEGATIVE) 06/24/20 20:54 AFB Smear NO ACID FAST BACILLI (NO AFB SEEN) 06/30/20 13:25 06/24/20 19:47 Troponin I < 0.012 NT-Pro-B Natriuret Pep 327 H Impressions: Chest X-Ray 06/24/20 19:36 IMPRESSION: Chronic lung changes. Likely superimposed pneumonia in the right lung. Chest/Abdomen CTA 06/24/20 21:39 IMPRESSION: 1. No pulmonary embolus. 2. Numerous solid pulmonary nodules, the largest in the left lower lobe measuring 3.1 cm. There is also extensive multilevel mediastinal and hilar lymphadenopathy and questionable lytic lesion of the T7 vertebral body. These findings are compatible with metastatic disease. Unknown primary. 3. Moderate right pleural effusion with right basilar compressive atelectasis. 4. Patchy airspace opacities in the right lung may represent a new bronchial spread of neoplasm or infectious pneumonic process related to bronchial compression by right hilar lymphadenopathy. 5. Coronary artery atherosclerosis. This exam was performed according to our departmental dose-optimization program, which includes automated exposure control, adjustment of the mA and/or kV according to patient size and/or use of iterative reconstruction technique. Chest X-Ray 06/27/20 00:00 IMPRESSION: No pneumothorax immediately following right-sided thoracentesis. Extensive right-sided airspace disease. Thoracentesis Ultrasound 06/27/20 00:00 IMPRESSION: SUCCESSFUL THORACENTESIS USING ULTRASOUND GUIDANCE. Chest X-Ray 06/27/20 16:37 IMPRESSION: Persistent consolidation predominantly in the right lung unchanged from prior. No pneumothorax. Venous Doppler Study 07/01/20 00:00 IMPRESSION: NO EVIDENCE DVT OR SVT IN EITHER LEG. ENLARGED LYMPH NODE ON THE LEFT HAS DECREASED IN SIZE FROM THE PRIOR STUDY. Plan Plan of Treatment: - follow up with Dr. León for biopsy result Time Spent: Less than 30 Minutes Stroke Is this a Stroke Patient?: No Acute Heart Failure Is this a Heart Failure Patient?: No
== END 2020-07-01 16:52 | disposition home health service (06) | DRG 194 ==
LOC: ER 19:24 → EH 06-25 00:51 → 3W 06-25 15:41 → OBSVTOIN 06-26 13:04 → 4N 06-26 14:58
PROVIDERS: ADMIT Student in an Organized Health Care Education/Training Program; ATTEND Internal Medicine
PROC: 0W993ZZ Drainage of Right Pleural Cavity, Percutaneous Approach (ICD-10-PCS; 2020-06-27)
PROC: 0B9D8ZX Drainage of Right Middle Lung Lobe, Via Natural or Artificial Opening Endoscopic, Diagnostic (ICD-10-PCS; principal; 2020-06-30 13:00)
PROC: 0B9C8ZX Drainage of Right Upper Lung Lobe, Via Natural or Artificial Opening Endoscopic, Diagnostic (ICD-10-PCS; 2020-06-30 13:00)
PROC: 0B928ZX Drainage of Carina, Via Natural or Artificial Opening Endoscopic, Diagnostic (ICD-10-PCS; 2020-06-30 13:00)
DX: J18.9 Pneumonia, unspecified organism (principal); J90 Pleural effusion, not elsewhere classified; E87.1 Hypo-osmolality and hyponatremia; I10 Essential (primary) hypertension; D50.9 Iron deficiency anemia, unspecified; E86.9 Volume depletion, unspecified; R74.01 Elevation of levels of liver transaminase levels; R59.9 Enlarged lymph nodes, unspecified; Z11.59 Encounter for screening for other viral diseases; Z79.899 Other long term (current) drug therapy; Z87.891 Personal history of nicotine dependence
CPT/HCPCS: 31623; 31624; 31625; 32555; 36415; 520; 71045; 71275; 80053; 81001; 82042; 82607; 82728; 82746; 82945; 83540; 83550; 83605; 83615; 83880; 84157; 84484; 85025; 85045; 85610; 86140; 87015; 87040; 87101; 87116; 87206; 87635; 87804; 88104; 88305; 88341; 88342; 93005; 93010; 93970; 94640; 94762; 96365; 96368; 96375; 99285; C9113; C9803; G0378; J0456; J0696; J1650; J1756; J1885; J2250; J2270; J2405; J2550; J2704; J3490; J7030; J7060; J7613

== ENCOUNTER → 2020-08-12 | Outpatient (CLI) | payer MEDICARE, OTHER ==
--- NOTE | 2020-08-13 09:39 | RADIOLOGY REPORT (SQ) ---
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 TECHNIQUE: Blood glucose level was verified. Above dose of FDG was injected intravenously. 2-D seg mented attenuation correction images were obtained from the base of the skull to the midthighs. Nonc ontrast CT images were obtained for attenuation correction and fusion with emission images. CT image s were performed without oral or intravenous contrast and are not sensitive for parenchymal lesions. A series of overlapping emission PET images were obtained. [facility] by the radiologist. Images stored on PACS. LIMITATIONS: None. FINDINGS: HEAD AND NECK: There are small lower cervical and supraclavicular lymph nodes. Highest PEDRO V is 4.0. Majority demonstrate relatively low metabolic activity with SUVs ranging between 1.5 and 2 . The findings are suspicious for neoplasm. CHEST: There is a large subcutaneous mass on the left anterior chest wall. SUV is greater than 7 con sistent with neoplasm. There are small bilateral sub pectoralis lymph nodes with increased metabolic activity consistent with metastatic disease. There are small axillary lymph nodes as well. There s cattered sub pleural lesions with an SUV of just slightly greater than 2. Uptake in the right lung p arenchyma is present with an SUV of 3.2. This is in an area of consolidation. There is a enlarged l ymph node in the left axilla with an SUV of 2.5. There is a sternal lesion with an SUV of 1.7. ABDOMEN AND PELVIS: Scattered periaortic as well as portal adenopathy with SUVs ranging between 3.3 a nd 5.0. There is a lesion in the left lobe of liver with an SUV of 4.9. PROXIMAL LOWER EXTREMITIES: No areas of abnormal metabolic activity in the soft tissues of the lower extremities. BONES: No abnormal metabolic activity in the visualized skeleton. ADDITIONAL CT FINDINGS: No additional significant findings on the noncontrast CT images. OTHER: No other significant findings. IMPRESSION: Widespread metastatic disease including the neck, chest, abdomen and pelvis. Numerous s ubpleural nodules are present with SUVs ranging from 1 to 2. TECHNICAL DOCUMENTATION: JOB ID: [id number] 2010 [employer]- All Rights Reserved Reading location - IP/workstation name: [email or web address]
== END ==
LOC: RAD 10:15
PROVIDERS: ATTEND Internal Medicine
DX: C83.38 Diffuse large B-cell lymphoma, lymph nodes of multiple sites (principal)
CPT/HCPCS: 78815; A9552

== ENCOUNTER → 2020-08-18 | Outpatient (CLI) | payer MEDICARE, OTHER ==
--- NOTE | 2020-08-18 12:45 | RADIOLOGY REPORT (SQ) ---
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 RADIONUCLIDE AND DOSE: 25.6 mCi technetium 99m labeled red blood cells The route of agent administration: Intravenous TECHNIQUE: Following administration of the radionuclide, gated images of the heart are obtained in t hree projections. Left ventricular functional analysis performed. LIMITATIONS: None. FINDINGS: LEFT VENTRICULAR FUNCTION: EJECTION FRACTION: 73%. END-DIASTOLIC VOLUME: 72 mL. END-SYSTOLIC VOLUME: 23 mL. WALL MOTION: No focal wall motion abnormalities. OTHER: No other significant finding. IMPRESSION: NORMAL CARDIAC MUGA STUDY. NORMAL LEFT VENTRICULAR FUNCTION WITH VALUES ABOVE. TECHNICAL DOCUMENTATION: JOB ID: [id number] 2010 [employer]- All Rights Reserved Reading location - IP/workstation name: [email or web address]
== END ==
LOC: RAD 10:38
PROVIDERS: ATTEND Internal Medicine
DX: Z01.89 Encounter for other specified special examinations (principal); C83.38 Diffuse large B-cell lymphoma, lymph nodes of multiple sites
CPT/HCPCS: 78472; A9560; Q9969

== ENCOUNTER 2020-08-22 13:31 | Day surgery (SDC) | payer MEDICARE, OTHER ==
[2020-08-19 12:00] LABS: HEMATOCRIT 35.4 % (37.9-51.0); HEMOGLOBIN 11.5 g/dL (13.5-17.0); MEAN CORPUSCULAR HEMOGLOBIN 24.3 pg (27.0-33.4); MEAN CORPUSCULAR HGB CONC 32.5 g/dL (32.0-36.0); MEAN CORPUSCULAR VOLUME 75 fl (80-97); PLATELET COUNT 241 10^3/uL (150-450); RED BLOOD COUNT 4.75 10^6/uL (4.35-5.55); RED CELL DISTRIBUTION WIDTH 18.3 % (11.5-14.0); WHITE BLOOD COUNT 4.7 10^3/uL (4.0-10.5)
[2020-08-19 12:33] LABS: ANION GAP 8 (5-19); BLOOD UREA NITROGEN 14 mg/dL (7-20); CALCIUM 9.4 mg/dL (8.4-10.2); CARBON DIOXIDE 26 mmol/L (22-30); CHLORIDE 104 mmol/L (98-107); GLUCOSE 97 mg/dL (75-110); POTASSIUM 4.4 mmol/L (3.6-5.0)
--- NOTE | 2020-08-19 12:52 | RADIOLOGY REPORT (SQ) ---
EXAM DESCRIPTION: CHEST 2 VIEWS IMAGES COMPLETED DATE/TIME: 08/19/2020 12:32 pm REASON FOR STUDY: PRE OP TESTING COMPARISON: 06/27/2020. EXAM PARAMETERS: NUMBER OF VIEWS: two views TECHNIQUE: Digital Frontal and Lateral radiographic views of the chest acquired. RADIATION DOSE: NA LIMITATIONS: none FINDINGS: LUNGS AND PLEURA: Diffuse interstitial prominence. Focal density in the mid right lung wi th some improvement since the prior study. Small right pleural effusion. MEDIASTINUM AND HILAR STRUCTURES: No masses or contour abnormalities. HEART AND VASCULAR STRUCTURES: Heart normal size. No evidence for failure. BONES: No acute findings. Degenerative changes in the spine. HARDWARE: None in the chest. OTHER: No other significant finding. IMPRESSION: SOME INTERVAL IMPROVEMENT IN THE FOCAL DENSITY IN THE MID RIGHT LUNG. INTERVAL DEVELOPM ENT OF A SMALL RIGHT PLEURAL EFFUSION. TECHNICAL DOCUMENTATION: JOB ID: [id number] 2010 [employer]- All Rights Reserved Reading location - IP/workstation name: [email or web address]
--- NOTE | 2020-08-20 00:40 | EKG REPORT ---
SEVERITY:- NORMAL ECG - SINUS RHYTHM : Confirmed by: Bhavana Aguilar 20-Aug-2020 00:39:35
[~2020-08-22 13:31] MED LIST changes: +CEFAZOLIN 2 GM/D5W RTU 2 GM/50 ML RTUPB IV PRN; -CHONDR SU A NA/HYALUR INTRAOC KIT (SURGICARE) ONE; -CYCLOPENTOLATE 0.2%/PHENYLEPHRINE 1% OPH SOLN 2 ML OS PRN; -DORZOLAMIDE HCL 2%/TIMOLOL MALEAT 0.5% OPH SOLN 10 ML OS PRN; -EPINEPHRINE INJ/PF 1 MG/1 ML AMPULE ONE; +IBUPROFEN 800 MG in NORMAL SALINE 250 ML IV PRN; -KETOROLAC TROMETHAMINE 0.45% 4 DROP/0.4 ML DROPERETTE OS PRN; +LACTATED RINGERS 1000 ML IV PRN; +LIDOCAINE 0.5% INJ-PF (5 MG/ML) 50 ML SDV SUBCUT PRN; -LIDOCAINE 1%/PHENYLEPHRINE 1.5% 1 ML VIAL ONE; -TROPICAMIDE 1% OPH SOLN 15 ML OS PRN; -TRYPAN BLUE 0.06 % OPH SOLN 0.5 ML DISP.SYRIN ONE
[2020-08-22] MEDS ORDERED: MIDAZOLAM 2 MG/2 ML INJ ONE (13:54)
[2020-08-22] MEDS ORDERED: PROPOFOL INJ 200 MG/20 ML VIAL IV ONE ×2 (13:54→14:03)
[2020-08-22] MEDS ORDERED: FENTANYL CITRATE INJ/PF 100 MCG/2 ML AMPUL ONE (13:54)
[2020-08-22] MEDS ORDERED: BUPIVACAINE HCL 0.25 % INJ/PF (2.5 MG/1 ML) 30 ML VIAL ONE (13:55)
[2020-08-22] MEDS ORDERED: LIDOCAINE 1% INJ-PF (10 MG/ML) 30 ML SDV ONE (13:55)
[2020-08-22] MEDS ORDERED: CEFAZOLIN 2 GM/D5W RTU 2 GM/50 ML RTUPB IV ONE (14:02)
[2020-08-22] MEDS ORDERED: FENTANYL CITRATE INJ/PF 100 MCG/2 ML AMPUL IV PRN ×3 (14:22)
[2020-08-22] MEDS ORDERED: MEPERIDINE HCL/PF INJ 25 MG/1 ML DISP.SYRIN IV PRN (14:22)
[2020-08-22] MEDS ORDERED: MORPHINE SULFATE 10 MG/ML INJ IV PRN (14:22)
[2020-08-22] MEDS ORDERED: ONDANSETRON HCL INJ/PF 4 MG/2 ML SDV IV PRN (14:22)
[2020-08-22] MEDS ORDERED: DIPHENHYDRAMINE HCL 50 MG/ML VIAL IV PRN (14:22)
[2020-08-22] MEDS ORDERED: HYDROCODONE/ACETAMINOPHEN 10-325 MG TABLET PO PRN (14:58)
--- NOTE | 2020-08-22 14:58 | Discharge Summary ---
Discharge Summary (SDC) - Discharge Final Diagnosis: lymphoma Date of Surgery: 08/22/20 Discharge Date: 08/22/20 Condition: Stable Treatment or Instructions: ok to use mediport. F/u PRN. ok to shower on Tuesday. Referrals: CHICO YA BROKER ASSISTANT [Primary Care Provider] - Discharge Diet: As Tolerated Respiratory Treatments at Home: Deep Breathing/Coughing, Incentive Spirometer Discharge Activity: Balance Activity w/Rest Home Care Assistance: None Needed Report the Following to Your Physician Immediately: Shortness of Breath, Nausea, Vomiting, Increase in Pain, Unusual Bleeding, Redness, Swelling, Warmth
--- NOTE | 2020-08-22 15:04 | Operative Report ---
Nonrecallable Operative Report DATE OF SURGERY: 08/22/20 PREOPERATIVE DIAGNOSIS: Lymphoma POSTOPERATIVE DIAGNOSIS: Lymphoma OPERATION: 1. Ultrasound-guided central venous puncture. 2. Left internal jugular vein Mediport placement. SURGEON: JOSÉ LUIS PAYNE ANESTHESIA: LMAC TISSUE REMOVED OR ALTERED: None COMPLICATIONS: None apparent ESTIMATED BLOOD LOSS: Minimal PROCEDURE: Drains/implants: Mediport. After informed consent was obtained, the patient was brought to the operating room and laid in the Trendelenburg position. The area of the neck and chest was prepped and draped in a normal sterile fashion. An ultrasound was used to identify the left internal jugular vein. It was compressible with normal flow. Under direct ultrasonic guidance, the left IJ was cannulated using the supplied access needle. The guidewire was then inserted into the vein very easily. The wire was confirmed to be within the lumen of the vein using the ultrasound as well as fluoroscopy. Pictur documentation was placed on the chart. Next, an incision was created in the left chest wall to accommodate the Mediport hub. A catheter was then tunneled from the Mediport hub site, to the needle insertion site. The dilator and breakaway sheath were then inserted over the wire. This was done under direct fluoroscopic guidance. The dilator and wire were removed, leaving the breakaway sheath within the SVC. The catheter was then inserted into the sheath. The sheath was cracked and pulled away, leaving the catheter within the SVC. The catheter was pulled back to an appropriate level, and trimmed to length. Next, the Mediport hub was attached. The hub was buried in the pocket. The hub was sutured to the chest wall using 3-0 Vicryl suture. The overlying soft tissues were closed using 3-0 Vicryl suture in simple running fashion. The overlying skin was closed using 4-0 Vicryl Rapide suture in subcuticular fashion. Dressing was placed, and the procedure was concluded. All sponge, instrument, needle counts were correct x2. Condition: Stable.
--- NOTE | 2020-08-22 15:46 | RADIOLOGY REPORT (SQ) ---
EXAM DESCRIPTION: CHEST SINGLE VIEW IMAGES COMPLETED DATE/TIME: 08/22/2020 3:32 pm REASON FOR STUDY: [facility] COMPARISON: 08/19/2020 EXAM PARAMETERS: NUMBER OF VIEWS: One view. TECHNIQUE: Single frontal radiographic view of the chest acquired. RADIATION DOSE: NA LIMITATIONS: None. FINDINGS: LUNGS AND PLEURA: Interval worsening of the patchy right mid lung opacities suspicious for pneumonia. Small right effusion. Unremarkable left hemithorax. No pneumothorax. MEDIASTINUM AND HILAR STRUCTURES: No masses. Contour normal. HEART AND VASCULAR STRUCTURES: Heart normal in size. Normal vasculature. BONES: No acute findings. HARDWARE: Left internal jugular central venous catheter tip overlies SVC. OTHER: No other significant finding. IMPRESSION: Persistent patchy consolidation throughout the right mid lung, increased from prior. Fi ndings possibly secondary to superimposed infection. Left internal jugular based chest port with catheter tip at SVC. No pneumothorax. TECHNICAL DOCUMENTATION: JOB ID: [id number] 2010 [employer]- All Rights Reserved Reading location - IP/workstation name: [email or web address]
--- NOTE | 2020-08-22 16:17 | RADIOLOGY REPORT (SQ) ---
EXAM DESCRIPTION: FLUORO/CV PLACEMENT IMAGES COMPLETED DATE/TIME: 08/22/2020 4:07 pm REASON FOR STUDY: MEDIPORT PLACEMENT C85.10 UNSPECIFIED B-CELL LYMPHOMA, UNSPECIFIED SITE Z79.899 OTHER ALUMNI RELATIONS COORDINATOR (CURRENT) DRUG THERAPY COMPARISON: 08/19/2020 FLUOROSCOPY TIME: 0.4 minutes 3 images saved to PACS. TECHNIQUE: Intra-operative images acquired during surgical procedure to evaluate progress. NUMBER OF IMAGES: 3 LIMITATIONS: None. FINDINGS: Limited intraoperative fluoroscopic images obtained demonstrate evidence of left-sided por t placement. Please see operative report for detailed description. IMPRESSION: IMAGE(S) OBTAINED DURING PROCEDURE. COMMENT: Quality ID [id number]: Final reports for procedures using fluoroscopy that document radiation exp osure indices, or exposure time and number of fluorographic images (if radiation exposure indices are not available) Please consult full operative report of the attending physician for description of the procedure. TECHNICAL DOCUMENTATION: JOB ID: [id number] 2010 [employer]- All Rights Reserved Reading location - IP/workstation name: [email or web address]
[2020-08-22 16:42] VITALS: BP 151/80
== END 2020-08-22 16:42 | disposition home or self-care (01) ==
LOC: OROUT 13:31
PROVIDERS: ATTEND Surgery
DX: C85.10 Unspecified B-cell lymphoma, unspecified site (principal); Z01.812 Encounter for preprocedural laboratory examination; Z20.822 Contact with and (suspected) exposure to COVID-19; R05 Cough; I10 Essential (primary) hypertension; Z80.6 Family history of leukemia; Z80.8 Family history of malignant neoplasm of other organs or systems; Z87.891 Personal history of nicotine dependence; Z79.899 Other long term (current) drug therapy
CPT/HCPCS: 36561; 93005; 36415; 85027; 80048; 71046; 71045; 77001; 93010; U0003; J2250; J3010; J3490; J7050; J2704; J0690; J1642; J1741; C9803; 532; 87635; C1788

== ENCOUNTER 2020-08-27 07:48 | Outpatient (CLI) | payer MEDICARE, OTHER ==
[~2020-08-27 07:48] MED LIST changes: +ACETAMINOPHEN 325 MG TABLET PO PRN; -CEFAZOLIN 2 GM/D5W RTU 2 GM/50 ML RTUPB IV PRN; +CYCLOPHOSPHAMIDE IV PRN; +DEXAMETHASONE 10 MG in NS 50 ML IV PRN; +DIPHENHYDRAMINE 50 MG in NS 50 ML IV PRN; +DISPOSABLE IV PRN; +DOXORUBICIN HCL IV PRN; +FOSAPREPITANT 150 MG in NS 150 ML IV PRN; -IBUPROFEN 800 MG in NORMAL SALINE 250 ML IV PRN; -LACTATED RINGERS 1000 ML IV PRN; -LIDOCAINE 0.5% INJ-PF (5 MG/ML) 50 ML SDV SUBCUT PRN; +NORMAL SALINE 250 ML @ KVO IV PRN; +NORMAL SALINE IV PRN; +PALONOSETRON 0.25 MG/5 ML VIAL IV PRN; +RITUXIMAB IV PRN; +VINCRISTINE SULFATE 2 MG in SYRINGE, DISPOSABLE, 1 EACH IV PRN
[2020-08-27 08:40] VITALS: BP 129/52
== END 2020-08-27 15:29 | disposition home or self-care (01) ==
LOC: 5TH 07:48 → II 07:48
PROVIDERS: ATTEND Internal Medicine
DX: Z51.11 Encounter for antineoplastic chemotherapy (principal); C83.38 Diffuse large B-cell lymphoma, lymph nodes of multiple sites
CPT/HCPCS: 96411; 96413; 96415; 96367; 96375; 96417; A9270; J9070; J1200; J9000; J7050; J7040; J3490; J9312 ×2; J1100; J1453; J2469; J9370; J1642

== ENCOUNTER 2020-08-28 14:42 | Outpatient (CLI) | payer MEDICARE, OTHER ==
[~2020-08-28 14:42] MED LIST changes: -ACETAMINOPHEN 325 MG TABLET PO PRN; -CYCLOPHOSPHAMIDE IV PRN; -DEXAMETHASONE 10 MG in NS 50 ML IV PRN; -DIPHENHYDRAMINE 50 MG in NS 50 ML IV PRN; -DISPOSABLE IV PRN; -DOXORUBICIN HCL IV PRN; -FOSAPREPITANT 150 MG in NS 150 ML IV PRN; -NORMAL SALINE 250 ML @ KVO IV PRN; -NORMAL SALINE IV PRN; -PALONOSETRON 0.25 MG/5 ML VIAL IV PRN; +PEGFILGRASTIM-CBQV 6 MG/0.6 ML SYRINGE SUBCUT PRN; -RITUXIMAB IV PRN; -VINCRISTINE SULFATE 2 MG in SYRINGE, DISPOSABLE, 1 EACH IV PRN
[2020-08-28 14:53] VITALS: BP 126/54
== END 2020-08-28 15:30 | disposition home or self-care (01) ==
LOC: II 14:42 → 5TH 14:43 → II 15:30
PROVIDERS: ATTEND Internal Medicine
DX: Z76.89 Persons encountering health services in other specified circumstances (principal); C83.38 Diffuse large B-cell lymphoma, lymph nodes of multiple sites
CPT/HCPCS: 96372; Q5111